=== PATIENT | female | born 1930 | race Caucasian/White ===

== ENCOUNTER → 2016-04-17 | Outpatient (REF) | payer MEDICARE ==
[~2016-04-17] MED LIST: /ESOM40CA PO; ACET65TA OR; ASPI81TA83 PO; ATEN25TA PO; CENTTAB PO; CO Q100C10 PO; D31000TA PO; FLON0.05; FLUTISP; GARL3CAP3 PO; LIPI20TA PO; LISI10TA4 PO; MIRA255PW PO; MOMETASONE FUROATE AU; NITR0.4S SL; NORV5TAB OR; OMEG100011 PO
[2016-04-17 11:53] LABS: ALBUMIN 3.5 GM/DL (3.2-5.2); ALBUMIN/GLOBULIN RATIO 1.09 (1.00-1.93); ALKALINE PHOSPHATASE 60 U/L (45-117); ALT/SGPT 18 U/L (12-78); ANION GAP 5 MEQ/L (8-16); AST/SGOT 20 U/L (15-37); BILIRUBIN,TOTAL 0.5 MG/DL (0.2-1.0); BLOOD UREA NITROGEN 21 MG/DL (7-18); CALCIUM LEVEL 8.8 MG/DL (8.8-10.2); CARBON DIOXIDE LEVEL 31 MEQ/L (21-32); CHLORIDE LEVEL 107 MEQ/L (98-107); CREATININE FOR GFR 0.81 MG/DL (0.55-1.02); GLOMERULAR FILTRATION RATE > 60.0 (>32); GLUCOSE, FASTING 90 MG/DL (83-110); POTASSIUM SERUM 4.4 MEQ/L (3.5-5.1); SODIUM LEVEL 143 MEQ/L (136-145); TOTAL PROTEIN 6.7 GM/DL (6.4-8.2)
== END ==
LOC: M SFHCPLAZ 09:00
PROVIDERS: ATTEND Internal Medicine
DX: I10 Essential (primary) hypertension (principal); K21.9 Gastro-esophageal reflux disease without esophagitis

== ENCOUNTER → 2016-10-01 | Outpatient (REF) | payer MEDICARE ==
[~2016-10-01] MED LIST changes: +AMLO5TAB2 PO; +B121000T PO; +B6 N1TAB PO; +CARV6.25 PO; +CEPH500C PO; +CLOP75TA2 PO; +GARL10004 PO; +MIRA33504 PO; +NITR4TASL SL; +OMEG500C3 PO; +OSTETAB4 PO; +SPIR25TA2 PO; +TYLE650T35 PO; +VITMTA PO
[2016-10-01 11:52] LABS: ALBUMIN 3.4 GM/DL (3.2-5.2); BILIRUBIN,TOTAL 0.7 MG/DL (0.2-1.0); CREATININE FOR GFR 1.05 MG/DL (0.55-1.02); GLOMERULAR FILTRATION RATE 52.8 (>32); POTASSIUM SERUM 4.7 MEQ/L (3.5-5.1); TOTAL PROTEIN 6.8 GM/DL (6.4-8.2)
== END ==
LOC: M SFHCLERA 09:01
PROVIDERS: ATTEND Internal Medicine
DX: I10 Essential (primary) hypertension (principal); E78.00 Pure hypercholesterolemia, unspecified

== ENCOUNTER → 2016-10-19 | Outpatient (CLI) | payer MEDICARE ==
--- NOTE | 2016-10-19 10:10 | REP ---
LEFT KNEE, FIVE VIEWS: HISTORY: Pain. There is no acute fracture or dislocation. There is narrowing of the joint spaces. Chondrocalcinosis is present. IMPRESSION: Degenerative change as described above. Signed by Kenneth Ashford MD 10/19/2016 11:01 A
== END ==
LOC: M LRY 09:37
PROVIDERS: ATTEND Nurse Practitioner Adult Health
DX: M11.262 Other chondrocalcinosis, left knee (principal)

== ENCOUNTER 2016-12-19 07:35 | Inpatient (IN) | payer MEDICARE ==
[~2016-12-19] VITALS: Ht 157.5 cm; Wt 52.4 kg
[~2016-12-19 07:35] MED LIST changes: -AMLO5TAB2 PO; -B121000T PO; -B6 N1TAB PO; -CARV6.25 PO; -CEPH500C PO; -CLOP75TA2 PO; -GARL10004 PO; -MIRA33504 PO; -NITR4TASL SL; -OMEG500C3 PO; -OSTETAB4 PO; -SPIR25TA2 PO; -TYLE650T35 PO; -VITMTA PO
[2016-12-19] MEDS ORDERED: NS 1,000 ML IV ONE ×2 (07:45→09:45)
[2016-12-19] MEDS ORDERED: fentaNYL 100 MCG/2 ML INJECTION (J3010) IV ONE (08:00)
[2016-12-19 08:11] LABS: BASO % 0.4 % (0.0-1.0); EOS # 0.1 10^3/uL (0.0-0.50); EOS % 1.5 % (0.0-3.0); IMMATURE GRANULOCYTE % 0.2 % (0-0); LYMPH # 2.4 10^3/uL (1.5-4.5); MEAN CORPUSCULAR HEMOGLOBIN 29.1 pg (27.0-33.0); MEAN CORPUSCULAR HGB CONC 32.1 g/dl (32.0-36.5); MEAN CORPUSCULAR VOLUME 90.6 fl (80.0-96.0); MONO # 0.7 10^3/uL (0.0-0.8); MONO % 7.2 % (0.0-5.0); NEUTROPHILS # 5.9 10^3/uL (1.8-7.7); NEUTROPHILS % 64.7 % (36.0-66.0); PLATELET COUNT, AUTOMATED 307 10^3/uL (150-450); RED CELL DISTRIBUTION WIDTH 12.8 % (11.5-14.5); WHITE BLOOD COUNT 9.2 10^3/uL (4.0-10.0)
--- NOTE | 2016-12-19 08:23 | REP ---
Portable chest, 08:02 a.m., single AP view, patient sitting: Comparisons are 01/20/2016 and 04/02/2012. The lung rucker are clear. Cardiac size is normal. The brady, mediastinum, and bony thorax are unchanged. There is an [place] anti reflux ring encircling the distal esophagus, unchanged. Impression: There are no acute cardiopulmonary findings. Signed by Fabián Bernal MD 12/19/2016 08:14 A
[2016-12-19 08:42] LABS: INR 1.07
[2016-12-19 08:47] LABS: ALBUMIN 3.1 GM/DL (3.2-5.2); ALBUMIN/GLOBULIN RATIO 1.15 (1.00-1.93); ALKALINE PHOSPHATASE 61 U/L (45-117); ALT/SGPT 17 U/L (12-78); AMYLASE 63 U/L (25-115); ANION GAP 10 MEQ/L (8-16); AST/SGOT 16 U/L (15-37); BILIRUBIN,DIRECT 0.2 MG/DL (0.0-0.2); BILIRUBIN,TOTAL 0.6 MG/DL (0.2-1.0); BLOOD UREA NITROGEN 21 MG/DL (7-18); CALCIUM LEVEL 8.7 MG/DL (8.8-10.2); CARBON DIOXIDE LEVEL 24 MEQ/L (21-32); CHLORIDE LEVEL 108 MEQ/L (98-107); CREATININE FOR GFR 0.83 MG/DL (0.55-1.02); GLOMERULAR FILTRATION RATE > 60.0 (>32); GLUCOSE, FASTING 133 MG/DL (83-110); POTASSIUM SERUM 4.2 MEQ/L (3.5-5.1); SODIUM LEVEL 142 MEQ/L (136-145); TOTAL PROTEIN 5.8 GM/DL (6.4-8.2)
[2016-12-19] MEDS ORDERED: ISOVUE-370 76% 100ML VIAL (Q9967) As Ordered ONE (08:57)
[2016-12-19] MEDS ORDERED: B6 N1TAB PO (09:11)
[2016-12-19] MEDS ORDERED: FLUTISP (09:11)
[2016-12-19] MEDS ORDERED: B121000T PO (09:11)
[2016-12-19] MEDS ORDERED: OMEG500C3 PO (09:11)
[2016-12-19] MEDS ORDERED: TYLE650T35 PO (09:11)
[2016-12-19] MEDS ORDERED: NITR4TASL SL (09:11)
[2016-12-19] MEDS ORDERED: MIRA33504 PO (09:11)
[2016-12-19] MEDS ORDERED: GARL10004 PO (09:11)
[2016-12-19] MEDS ORDERED: VITMTA PO (09:11)
[2016-12-19] MEDS ORDERED: OSTETAB4 PO (09:14)
--- NOTE | 2016-12-19 09:45 | REP ---
CT CHEST WITH IV CONTRAST: TECHNIQUE: Axial contrast enhanced images from the thoracic inlet to the upper abdomen using 100 mL Isovue 370 intravenous contrast material with multiplanar reformations. The lungs are free of infiltrate or other suspicious parenchymal opacities. There is no mediastinal, hilar, or chest wall lymphadenopathy. The patient appears to have had a left mastectomy. There are moderate atherosclerotic calcifications of the thoracic of the thoracic aorta without aneurysm or dissection. There is no mediastinal, hilar, or chest wall lymphadenopathy. There is no pleural or pericardial effusion. There is an antireflux device encircling the lower esophagus. There are degenerative changes of the spine. IMPRESSION: No acute findings. Signed by Fabián Tillman MD 12/19/2016 02:34 P
--- NOTE | 2016-12-19 10:04 | REP ---
CT ABDOMEN AND PELVIS WITH IV CONTRAST: TECHNIQUE: Axial contrast enhanced images from the lung bases to the pubic symphysis using 100 mL Isovue 370 intravenous contrast material with multiplanar reformations. Liver again demonstrates a cyst in the right lobe with lobulated margins between 3 and 4 cm in diameter, unchanged. Patient has had a prior cholecystectomy. There is dilatation of the central intrahepatic bile ducts as well as of the common bile duct, unchanged. Maximum diameter of the common bile duct is 1.8 cm. The spleen is unremarkable in appearance. There adrenal glands are diffusely thickened and unchanged. Pancreas demonstrates no mass. Kidneys demonstrate no mass or hydronephrosis. There are moderate atherosclerotic calcifications of the abdominal aorta without aneurysm. Heavy calcifications are seen at the origin of the mesenteric arteries suggesting mesenteric artery stenosis. There is questionable thickening of the hepatic flexure of the colon with some streaky surrounding inflammatory change. Findings may indicate ischemic colitis in this region. No other area of bowel wall thickening is seen. There is colonic diverticulosis. There is no adenopathy, free air, or free fluid. There is no pelvic mass. The urinary bladder appears unremarkable. There are degenerative changes of the spine. IMPRESSION: There appears to be significant narrowing and stenosis of the mesenteric arteries proximally. In addition there is questionable thickening of the splenic flexure of the colon with some streaky densities in the surrounding fat. Findings may indicate mesenteric artery stenosis with associated ischemic colitis. No other acute findings are seen. Signed by Fabián Tillman MD 12/19/2016 02:35 P
[2016-12-19] MEDS ORDERED: CARV6.25 PO (10:56)
[2016-12-19] MEDS ORDERED: SPIR25TA2 PO (10:56)
[2016-12-19] MEDS ORDERED: AMLO5TAB2 PO (10:56)
[2016-12-19] MEDS ORDERED: CLOPIDOGREL 300 MG TAB (PLAVIX) PO STA ×2 (12:39→20:04)
[2016-12-19] MEDS ORDERED: HYDROmorphone HCL 1 MG/ML SYRINGE (J1170) IV PRN ×2 (12:45)
[2016-12-19] MEDS ORDERED: ONDANSETRON 4MG/2ML VIAL (J2405) IV PRN (12:45)
[2016-12-19 14:47] VITALS: BP 173/72
--- NOTE | 2016-12-19 15:28 | HPE ---
DATE OF ADMISSION: 12/19/2016 PRIMARY CARE PROVIDER: Dr. Laith Myers. GENERAL SURGEON: Dr. Fabián Patel. FUR SORTER: Dr. Noé Carson. VASCULAR SURGEON: Dr. Rosas Christian. CHIEF COMPLAINT: Abdominal pain. HISTORY OF PRESENT ILLNESS: This is an 86-year-old female patient with underlying medical history of hypertensive heart disease, hypertension, dyslipidemia, hiatal hernia, valvular heart disease, coronary artery disease, history of gastrointestinal bleed in the remote past with multiple abdominal surgeries which include appendectomy, inguinal hernia repair, hysterectomy, cholecystectomy, hiatal hernia repair, rectal and vaginal repair. The patient was brought to [facility] with acute onset around 5:00 to 6:00 -o'clock in the morning of acute onset of sharp, cramping abdominal pain that comes in waves, diffusely tender with dry heaving. Last bowel movement was yesterday, and was small. No oral intake this morning. Denies any chest pain, pressure or discomfort, shortness of breath. The patient was tachycardia in significant pain. Symptoms relieved with IV fluids and also pain medication in the emergency room. Currently, still having diffuse abdominal pain worse with palpation but much better. CT scan was done showing ischemic colitis. The patient denies any fevers or chills. No sick contact, diarrhea. ALLERGIES: CODEINE AND LATEX. PAST MEDICAL HISTORY: Hypertension. Hypertensive heart disease. Valvular heart disease. Hiatal hernia. Coronary artery disease PAST SURGICAL HISTORY: Appendectomy. 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 Inguinal hernia repair 1960s. Hysterectomy 1961. Cholecystectomy . Hiatal hernia repair. Vein ligation. Left mastectomy with cancer. Right index finger surgery with a lump. Colonoscopy. Esophagogastroduodenoscopy (EGD). Cataract surgery bilateral. Right-sided breast lumpectomy. Vaginal wall repair and rectal repair. Right shoulder surgery. FAMILY HISTORY: Father with prostate cancer, hypertension and heart disease, diabetes. Mother had hypertension, coronary artery disease and diabetes. SOCIAL HISTORY: The patient does not smoke or drink alcoholic beverages or use elicit drugs. Lives at home but with daughter next door. REVIEW OF SYSTEMS: Report of abdominal pain, dry heaving, nausea. All other review of systems negative. HOME MEDICATIONS: - Acetaminophen 650 mg by mouth every 8 hours as needed - Norvasc 5 mg by mouth daily - Lipitor 20 mg by mouth nightly - Coreg 6.25 mg by mouth twice a day - vitamin D 1000 units by mouth daily - Coenzyme Q10 100 mg by mouth daily - vitamin B12 2000 micrograms by mouth daily - Nexium 40 mg by mouth every 2 days - Flonase nasal spray daily - Garlic 1000 mg by mouth daily - lisinopril 10 mg by mouth twice a day - multivitamin one tablet by mouth daily - nitroglycerine 0.4 mg sublingual as needed - [place] III fatty acid by mouth daily - MiraLAX 17 mg by mouth daily - vitamin B6 100 mg by mouth daily - spironolactone 12.5 mg by mouth daily PHYSICAL EXAMINATION: VITAL SIGNS: Temperature 97.6, pulse 65, respiration 19, blood pressure 144/66, pulse ox 96% on room air. GENERAL: Patient alert, comfortable in no acute distress. HEENT: Normocephalic, atraumatic. CARDIAC: Regular rate and rhythm 2/6 systolic murmur. ABDOMEN: Diffusely tender, mostly right-sided lower quadrant with rebound and guarding. Soft. EXTREMITIES: No clubbing, cyanosis or edema. EKG: Sinus bradycardia at 54. No ST segment changes. CT scan shows ischemic colitis with mesenteric artery stenosis. LABORATORY: WBC 9.2, hemoglobin and hematocrit 10.3/31.8, platelets 307. Sodium 142, potassium 4.2, chloride 108, bicarbonate 24, BUN 21, creatinine 0.8, lactic acid 2.6, 0.8 and 1.1. Cardiac enzyme negative times one. ASSESSMENT/PLAN: This is an 86-year-old female patient with underlying medical history of hypertensive heart disease, coronary artery disease, valvular heart disease, hiatal hernia, GI bleed, breast cancer. Patient with multiple abdominal surgery which includes hysterectomy, cholecystectomy, hiatal hernia repair, appendectomy , inguinal hernia repair presented with abdominal pain and dry heaving secondary to ischemic colitis with stenosis of mesenteric artery. PROBLEMS: 1. Ischemic colitis with mesenteric artery stenosis: Consulted general surgery , Dr. Patel and vascular surgeon, Dr. Christian. Discussed with Dr. Patel, will nothing by mouth. Continue IV fluids. Serial abdominal exam. Trend lactic acid. Will place the patient on empiric antibiotics until patient stabilizes. Consulted vascular surgery. The patient is scheduled for angiogram tomorrow. Will continue the patient on 75 mg of Plavix daily, given the patient is at significant risk. The patient does have history of GI bleed, but given the patient has acute ischemic colitis, the risk of bleeding outweighs the benefit. Will place the patient on antiplatelet agent for now. Pain medication as ordered. 2. Hypertension: Continue Norvasc, Coreg and lisinopril. Holding spironolactone. Will monitor blood pressure. 3. Dyslipidemia: Continue statin. 4. Hypertensive heart disease: Continue medication as mentioned above. 5. Valvular heart disease: Outpatient followup. 6. History of GI bleed: Monitor hemoglobin and hematocrit. 7. Deep venous thrombosis prophylaxis: Heparin subcu. DISPOSITION PLAN: Pending general surgery and vascular surgery followup. Clinical improvement. Patient with multiple comorbidities, acutely ill with ischemic colitis with mesenteric artery ischemia. Prognosis guarded. MTDD
[2016-12-19] MEDS: MEROPENEM INJ 1 GM in D5W MINI-BAG PLUS 100 ML IV SCH (15:29)
[2016-12-19] MEDS: HEPARIN SOD (PORCINE) 5000 UNITS/ML VIAL SC SCH ×2 (15:29→21:16)
[2016-12-19] MEDS: LISINOPRIL 10 MG TAB PO SCH ×2 (16:03→20:33)
[2016-12-19] MEDS: CARVedilol 6.25 MG TAB PO SCH ×2 (16:03→20:32)
[2016-12-19] MEDS: MULTIVITAMINS/MINERALS THERAP 1 TAB PO SCH (16:03)
[2016-12-19] MEDS: amLODIPine 5 MG TAB PO SCH (16:04)
[2016-12-19] MEDS: NS 1,000 ML IV SCH ×2 (19:26→20:35)
[2016-12-19 20:00] VITALS: BP 131/62; O2SAT 96
[2016-12-19] MEDS: PANTOPRAZOLE 40MG INJ (PROTONIX) (C9113) IV SCH (20:32)
[2016-12-19] MEDS: SENOKOT S TAB PO SCH (20:33)
[2016-12-19] MEDS: ATORVASTATIN 20 MG TAB PO SCH (20:33)
[2016-12-19] MEDS: FLUTICASONE PROP 0.05% NASAL SPRAY 16 GM (FLONASE) SCH (20:34)
[2016-12-19 23:59] VITALS: BP 114/56
[2016-12-20] VITALS (10 sets, daily range): BP systolic 130–165; BP diastolic 57–86; O2SAT 95
[2016-12-20] MEDS: MEROPENEM INJ 1 GM in D5W MINI-BAG PLUS 100 ML IV SCH (02:27)
[2016-12-20] MEDS: HEPARIN SOD (PORCINE) 5000 UNITS/ML VIAL SC SCH ×3 (04:20→20:55)
[2016-12-20] MEDS: NS 1,000 ML IV SCH ×2 (04:20→16:06)
[2016-12-20 05:36] LABS: MEAN CORPUSCULAR HEMOGLOBIN 28.8 pg (27.0-33.0); MEAN CORPUSCULAR HGB CONC 31.7 g/dl (32.0-36.5); MEAN CORPUSCULAR VOLUME 90.9 fl (80.0-96.0); PLATELET COUNT, AUTOMATED 318 10^3/uL (150-450); RED CELL DISTRIBUTION WIDTH 12.9 % (11.5-14.5); WHITE BLOOD COUNT 6.3 10^3/uL (4.0-10.0)
[2016-12-20 05:45] LABS: INR 1.17
[2016-12-20 06:00] LABS: ALBUMIN 2.6 GM/DL (3.2-5.2); ALKALINE PHOSPHATASE 56 U/L (45-117); ALT/SGPT 14 U/L (12-78); ANION GAP 8 MEQ/L (8-16); AST/SGOT 16 U/L (15-37); BILIRUBIN,TOTAL 0.5 MG/DL (0.2-1.0); BLOOD UREA NITROGEN 11 MG/DL (7-18); CALCIUM LEVEL 8.1 MG/DL (8.8-10.2); CARBON DIOXIDE LEVEL 25 MEQ/L (21-32); CHLORIDE LEVEL 109 MEQ/L (98-107); CREATININE FOR GFR 0.57 MG/DL (0.55-1.02); GLOMERULAR FILTRATION RATE > 60.0 (>32); GLUCOSE, FASTING 85 MG/DL (83-110); POTASSIUM SERUM 3.3 MEQ/L (3.5-5.1); SODIUM LEVEL 142 MEQ/L (136-145); TOTAL PROTEIN 5.5 GM/DL (6.4-8.2)
[2016-12-20] MEDS ORDERED: POTASSIUM CHLORIDE 10 MEQ SR TABLET PO ONE ×2 (07:15→13:00)
[2016-12-20] MEDS ORDERED: MIDAZOLAM INJ 2 MG/2 ML VIAL (J2250) As Ordered ONE (07:27)
[2016-12-20] MEDS ORDERED: HEPARIN 1,000 UNITS/ML 10ML VIAL (FOR RADIOLOGY& DIALYSIS ONLY) As Ordered ONE (07:27)
[2016-12-20] MEDS ORDERED: LIDOCAINE 2% MDV 20 ML VIAL As Ordered ONE (07:27)
[2016-12-20] MEDS ORDERED: ISOVUE-300 61% 50ML VIAL (Q9967) As Ordered ONE (07:27)
[2016-12-20] MEDS ORDERED: fentaNYL 100 MCG/2 ML INJECTION (J3010) As Ordered ONE (07:27)
[2016-12-20] MEDS ORDERED: PROTAMINE SULF INJ 50 MG/5 ML VIAL (J2720) As Ordered ONE (08:48)
[2016-12-20] MEDS: VITAMIN D 1,000 INTERNATIONAL UNITS TABLET PO SCH (09:54)
[2016-12-20] MEDS: CLOPIDOGREL 75 MG TAB PO SCH (09:54)
[2016-12-20] MEDS: amLODIPine 5 MG TAB PO SCH (09:54)
[2016-12-20] MEDS: MULTIVITAMINS/MINERALS THERAP 1 TAB PO SCH (09:54)
[2016-12-20] MEDS: LISINOPRIL 10 MG TAB PO SCH ×2 (09:54→20:55)
[2016-12-20] MEDS: SENOKOT S TAB PO SCH ×2 (09:55→20:54)
[2016-12-20] MEDS: CARVedilol 6.25 MG TAB PO SCH ×2 (09:55→20:54)
[2016-12-20] MEDS: FLUTICASONE PROP 0.05% NASAL SPRAY 16 GM (FLONASE) SCH (09:55)
--- NOTE | 2016-12-20 16:35 | IPN ---
DATE: 12/20/2016 Patient seen and examined. No acute events overnight. Status post angiogram by Dr. Christian. Denies any chest pain, pressure, or discomfort. Reported abdominal pain to be much improved. Denies any fevers or chills. VITAL SIGNS: Temperature 99.1, pulse 64, respirations 18, blood pressure 150/64, pulse oximetry 98% on room air. LABORATORY DATA: WBC 6.3, hemoglobin and hematocrit 9.2/29, platelets 318. Chemistry: Sodium 142, potassium 3.6, chloride 109, bicarbonate 25, BUN 11, creatinine 0.57. PHYSICAL EXAMINATION: GENERAL: Patient alert and oriented times three in no acute distress. HEENT: Normocephalic, atraumatic. PULMONARY: Bilaterally clear to auscultation. CARDIAC: Regular rate and rhythm. Normal S1, S2. A 2/6 systolic murmur. ABDOMEN: Soft, nontender. Positive bowel sounds, hyperactive. EXTREMITIES: No clubbing, cyanosis, or edema. ASSESSMENT AND PLAN: This is an 86-year-old female patient with underlying medical history of hypertensive heart disease, coronary artery disease, valvular heart disease, hiatal hernia, gastrointestinal (GI) bleed, breast cancer, and with multiple abdominal surgeries, which include hysterectomy, cholecystectomy, hiatal hernia, appendectomy, inguinal hernia repair, presented with abdominal pain and dry heaving secondary to ischemic colitis and stenosis of mesenteric artery. 1. Ischemic colitis with mesenteric artery stenosis. Consulted general surgery, Dr. Patel, and vascular surgery, Dr. Christian. Status post angiogram. Diet has been advanced. Intravenous (IV) fluids, serial abdominal exams. Lactic acidosis has resolved. Initially started on meropenem. Currently discontinued. Patient on Plavix. Risks and benefits of Plavix have been discussed with the family. Will discuss with Dr. Christian for further long-term antiplatelet agent recommendation. Patient medication as prescribed. 2. Hypertension. Continue Norvac, Coreg, lisinopril. Will restart spironolactone tomorrow. 3. Dyslipidemia. Continue statin. 4. Hypertensive heart disease. Continue medication management above. 5. Valvular heart disease, outpatient followup. 6. History of gastrointestinal (GI) bleed. Monitor hemoglobin and hematocrit. 7. Deep vein thrombosis (DVT) prophylaxis. Heparin subcutaneous. DISPOSITION PLANNING: Pending final general surgery and vascular surgery recommendations, physical therapy. Patient with multiple comorbidities. Guarded prognosis.
[2016-12-20] MEDS: PANTOPRAZOLE 40MG INJ (PROTONIX) (C9113) IV SCH (17:39)
[2016-12-20] MEDS: ATORVASTATIN 20 MG TAB PO SCH (20:54)
[2016-12-21] VITALS: BP 148/67
[2016-12-21 04:00] VITALS: BP 138/63
--- NOTE | 2016-12-21 04:32 | ECGEPIP ---
Stationary ECG Study [facility] - ED Test Date: 2016-12-19 Pat Name: LAKESHA KILLIAN Department: Room: - Gender: F Grader Marker: JJagdeep : 1930 Requested By: Morro Vargas Order Number: [id number] Reading MD: Jatin Farah Measurements Intervals [place] Rate: 54 P: 84 ID: [id number] QRS: 4 QRSD: 87 T: 59 QT: 466 QTc: 442 Interpretive Statements SINUS BRADYCARDIA LOW QRS VOLTAGE IN EXTREMITY LEADS NONSPECIFIC T-WAVE ABNORMALITY BASELINE ARTIFACT AFFECTS INTERPRETATION SIMILAR TO 02/21/16 Electronically Signed On 12-21-2016 4:32:13 EDT by Jatin Farah
[2016-12-21] MEDS: HEPARIN SOD (PORCINE) 5000 UNITS/ML VIAL SC SCH (05:01)
[2016-12-21] MEDS: NS 1,000 ML IV SCH (05:01)
[2016-12-21 05:21] LABS: MEAN CORPUSCULAR HEMOGLOBIN 29.5 pg (27.0-33.0); MEAN CORPUSCULAR HGB CONC 32.4 g/dl (32.0-36.5); MEAN CORPUSCULAR VOLUME 91.2 fl (80.0-96.0); PLATELET COUNT, AUTOMATED 306 10^3/uL (150-450); WHITE BLOOD COUNT 6.8 10^3/uL (4.0-10.0)
[2016-12-21 05:34] LABS: INR 1.1
[2016-12-21 05:40] LABS: ALBUMIN 2.6 GM/DL (3.2-5.2); ALBUMIN/GLOBULIN RATIO 0.96 (1.00-1.93); ALKALINE PHOSPHATASE 50 U/L (45-117); ALT/SGPT 16 U/L (12-78); ANION GAP 6 MEQ/L (8-16); AST/SGOT 16 U/L (7-37); BILIRUBIN,TOTAL 0.4 MG/DL (0.2-1.0); BLOOD UREA NITROGEN 9 MG/DL (7-18); CALCIUM LEVEL 8.2 MG/DL (8.8-10.2); CARBON DIOXIDE LEVEL 25 MEQ/L (21-32); CHLORIDE LEVEL 112 MEQ/L (98-107); CREATININE FOR GFR 0.75 MG/DL (0.55-1.02); GLOMERULAR FILTRATION RATE > 60.0 (>32); GLUCOSE, FASTING 96 MG/DL (83-110); POTASSIUM SERUM 4.1 MEQ/L (3.5-5.1); SODIUM LEVEL 143 MEQ/L (136-145); TOTAL PROTEIN 5.3 GM/DL (6.4-8.2)
[2016-12-21 08:00] VITALS: BP 156/70
[2016-12-21] MEDS ORDERED: CEPHALEXIN 500 MG CAP PO SCH (09:00)
[2016-12-21] MEDS ORDERED: SPIRONOLACTONE 12.5MG PER 1/2 TABLET PO SCH (09:00)
[2016-12-21] MEDS: SENOKOT S TAB PO SCH (09:00)
[2016-12-21] MEDS: VITAMIN D 1,000 INTERNATIONAL UNITS TABLET PO SCH (09:26)
[2016-12-21] MEDS: CLOPIDOGREL 75 MG TAB PO SCH (09:27)
[2016-12-21] MEDS: LISINOPRIL 10 MG TAB PO SCH (09:27)
[2016-12-21] MEDS: amLODIPine 5 MG TAB PO SCH (09:27)
[2016-12-21] MEDS: CARVedilol 6.25 MG TAB PO SCH (09:27)
[2016-12-21] MEDS: MULTIVITAMINS/MINERALS THERAP 1 TAB PO SCH (09:27)
[2016-12-21] MEDS: FLUTICASONE PROP 0.05% NASAL SPRAY 16 GM (FLONASE) SCH (09:28)
--- NOTE | 2016-12-21 10:54 | CR ---
DATE OF CONSULTATION: 12/19/2016 CHIEF COMPLAINT: Abdominal pain. HISTORY OF PRESENT ILLNESS: The patient is an 86-year-old female who presented to the emergency room (ER) after being found at home having some nausea, dry heaves, and diffuse abdominal pain. Emergency medical services (EMS) claims that when they arrived, she was in atrial fibrillation (AFib). However, there are no rhythm strips to prove that, and she has only been having some premature ventricular contractions (PVCs) since arrival in the emergency room. No known prior history of any heart arrhythmias. Currently, she is complaining of some mild abdominal pains but denies any current nausea, vomiting, or fevers. She claims that the ride over in the ambulance did not aggravate her abdominal pain any. No changes in her bowel movements. No problems with blood in her stool. No recent trauma or surgery to the abdomen. No other changes in activity recently. ALLERGIES: CODEINE and LATEX. HOME MEDICATIONS: Please see medical record. PAST MEDICAL HISTORY: Hypertension, hypertensive heart disease, valvular heart disease, hiatal hernia, coronary artery disease. PAST SURGICAL HISTORY: Appendectomy, right knee surgery, inguinal hernia repair, hysterectomy, cholecystectomy, hiatal hernia repair, vein ligation, left mastectomy due to breast cancer, cataract surgery, right breast lumpectomy, vaginal wall repair, and rectocele repair, right shoulder surgery. FAMILY HISTORY: Noncontributory. SOCIAL HISTORY: Denies any current drug, alcohol, or tobacco abuse. REVIEW OF SYSTEMS: Pertinent positives and negatives in the history of present illness (HPI). PHYSICAL EXAMINATION: General: The patient is alert and oriented times three. Vital signs: Temperature 97.4, pulse 64, respirations 20, blood pressure 144/65, pulse oximetry 100% on room air. HEENT: Pupils equal, round, and reactive to light and accommodation. Heart: S1, S2, regular rate and rhythm. Lungs: Clear to auscultation bilaterally. Abdomen: Soft, tender to palpation left upper quadrant, no rebounding or guarding, no rigidity. Extremities: No clubbing, cyanosis, or edema. There is a strong dorsalis pedis pulse palpable in the left foot with no palpable dorsalis pedis in the right. LABORATORIES: White count 9.2, hemoglobin 10.2, potassium 4.2, lactic acid 2.6, calcium 8.7. Repeat lactic acid at 10 a.m. was down to 0.8. IMAGING: CT abdomen and pelvis showed significant narrowing and stenosis of the mesenteric arteries proximally, questionable thickening of splenic flexure of the colon with some streaky densities and surrounding fat. No other acute findings identified. ASSESSMENT AND PLAN: The patient is an 86-year-old female with sudden onset of abdominal pain and nausea, presents to the ER. CT confirms that this is likely ischemic colitis. She had lactic acidosis upon admission. However, that is improving with fluid hydration. I have discussed her CT with Dr. Christian, who has looked at her films and does agree that her vessels are narrowed, and he is planning to take her tomorrow morning for an angiogram to see if there is anything that he can stent. Currently, her symptoms are likely due to a low flow state as opposed to an embolic event. There are no signs to show that she has had any irregular heart rhythms to cause anything. At this time, she will be kept nothing by mouth, on intravenous (IV) fluids, place her empirically on antibiotics, and she also will be placed on some blood thinners temporarily.
[2016-12-21] MEDS ORDERED: CEPH500C PO (12:33)
[2016-12-21] MEDS ORDERED: CLOP75TA2 PO (12:33)
--- NOTE | 2016-12-23 19:36 | DSES ---
DATE OF ADMISSION: 12/19/2016 DATE OF DISCHARGE: 12/21/2016 PRIMARY CARE PROVIDER: Dr. Laith Myers. GENERAL SURGEON: Dr. Patel. VASCULAR SURGEON: Dr. Christian. FINAL DIAGNOSES: Ischemic colitis with mesenteric artery stenosis. Hypertension. Dyslipidemia. Hypertensive heart disease. Vascular heart disease. History of GI bleed. HISTORY OF PRESENT ILLNESS: This is an 86-year-old female patient with underlying medical history of hypertensive heart disease, hypertension, dyslipidemia, hiatal hernia, valvular heart disease, coronary artery disease, history of gastrointestinal bleed in the remote past with multiple abdominal surgeries; which include appendectomy, inguinal hernia repair, hysterectomy, cholecystectomy, hiatal hernia repair, rectal and vaginal repair. The patient was brought to [facility] with acute onset around 5:00 to 6:00 o'clock in the morning of abdominal pain, sharp cramping pain, comes in waves with retching. No vomiting and dry heaving. Last bowel movement was the day before admission, it was small with no oral intake in the morning. Denies any chest pain, pressure or discomfort, fevers, chills or shortness of breath with tachycardia in route but in the emergency room patient's pain improved with IV fluids and also pain medication. CT scan in the emergency department (ED) showed ischemic colitis with mesenteric artery narrowing. HOSPITAL COURSE: Patient was admitted to the hospital, vascular surgery was consulted. Patient was given Plavix. General surgery was also consulted. Patient was taken to angiogram by Dr. Christian showing only 30% to 40% narrowing. As per surgeons and vascular surgeon, patient most likely had some dehydration resulting in poor perfusion in the watershed area. IV fluids has been given to the patient. Diet has been advanced. Patient currently reported back to baseline, tolerating oral, able to ambulate. Physical therapy evaluation was done. Patient currently comfortable in no acute distress ready for discharge with further care as outpatient. Case discussed with Dr. Ozuna who is covering for Dr. Patel and also Dr. Christian. Vital signs: Temperature 98.3, pulse 68, respirations 18, blood pressure 156/70, pulse ox 97% on room air. GENERAL: Patient awake, alert, and oriented times three in no acute distress. HEENT: Normocephalic, atraumatic. PULMONARY: Bilaterally clear to auscultation. CARDIAC: Regular rate and rhythm. 2/6 systolic murmur. ABDOMEN: Soft, non-tender, positive bowel sounds, non-tender. EXTREMITIES: No clubbing, cyanosis or edema. LABORATORY DATA: WBC 6.8, H H 9.1/28.1, platelets 306, sodium 143, potassium 4.1, chloride 112, bicarbonate 25, BUN 9, creatinine 0.75. DISCHARGE MEDICATION: - Keflex for urinary tract infection 500 mg by mouth twice a day - Plavix 75 mg by mouth daily PATIENT HOME MEDICATION: - acetaminophen 650 every 8 hours as needed - Norvasc 5 mg by mouth daily - Lipitor 20 mg by mouth at bedtime - Coreg 6.25 mg by mouth twice a day - Vitamin D 1000 units by mouth daily - Coenzyme Q10 100 mg by mouth daily - Vitamin B12 2000 mcg by mouth daily - Nexium 15 mg by mouth every 2 days - Flonase nasal spray daily - garlic 100 mg by mouth daily - Lisinopril 10 mg by mouth twice a day - multivitamin 1 tablet by mouth daily - sublingual nitro 0.4 as needed - [place] 3 fatty acid by mouth daily - Alise LAX as needed - Vitamin B6 100 mg by mouth daily - spironolactone 12.5 mg by mouth daily DISCHARGE INSTRUCTIONS: Patient is instructed to follow up with primary care provider in 7 days. Return to the hospital if symptoms worsen. Follow up with vascular surgery in 7- 10 days. Follow up with general surgery in 2 weeks. Oral hydration. ADDENDUM: 12/21/2016 Risk and benefit of Plavix has been discussed. As of right now, it is believed that the benefit of Plavix outweighs the risk of bleeding given patient's gastrointestinal (GI) bleed has been in the remote past. Would recommend following hemoglobin and hematocrit as outpatient. Time spent arranging and coordinating discharge: 40 minutes.
--- NOTE | 2017-01-02 13:31 | REPIR ---
DATE OF PROCEDURE: 12/20/2016 PREPROCEDURE DIAGNOSIS: Mesenteric ischemia. POSTPROCEDURE DIAGNOSIS: Mesenteric ischemia. PROCEDURE: Aortogram, selective celiac artery catheter placement with angiogram, selective superior mesenteric artery catheter placement with angiogram, pressure measurement in the aorta, celiac artery and superior mesenteric artery. Mynx closure of the right common femoral arteriotomy. SURGEON: Dr. Noé Christian. DIRECTOR OF GRADUATE MEDICAL EDUCATION: ANESTHESIA: Local with sedation with 0.5 mg of Versed, (cut off) mcg of Fentanyl and 10 mL of 2% lidocaine. ESTIMATED BLOOD LOSS: FLUORO TIME: 2.222 minutes. CONTRAST: 9 mL. SEDATION TIME: From 8:10 a.m. to 9:05 a.m. for a total of 55 minutes. COMPLICATIONS: None. DRAINS: None. SPECIMENS: None. IMPLANTS: Right femoral Mynx closure device. INDICATION: Patient is an 86-year-old female who presented with ischemic colitis and underwent a CT scan which showed severe calcification of the superior mesenteric and celiac artery origins. Patient was unable to undergo a CT angiogram due to contrast limitations and will now undergo angiography with possible angioplasty and stent for mesenteric ischemia and colitis. Risks, benefits and alternative treatment options were discussed with the patient. PROCEDURE: The patient was taken to the angiography suite and placed supine on the angiography room table and then prepped and draped in a standard surgical fashion. A time out complete confirming the correct procedure, patient and laterality. The right common femoral artery was then cannulated with a micropuncture needle after anesthetizing the overlying skin with 1% lidocaine. The micropuncture wire was advanced through the micropuncture needle which was upsized to a micropuncture sheath. A Bentson wire was advanced through the micropuncture sheath which was upsized to a #5-Malian sheath. An Omniflush catheter was placed in the aorta and an aortogram was performed. A Soft Omni catheter was then used to selectively cannulate the celiac artery and an angiogram was performed confirming no stenosis. Pressure measurements were then taken in the celiac and aorta to confirm no significant stenosis and the pressure in the aorta was 162/41 with a mean of 90, at the same time the celiac artery showed 151/43 with a mean of 83 showing no significant gradient. The superior mesenteric artery was then selectively cannulated and an angiogram performed confirming no stenosis and again pressure measurements were taken with the pressure in the aorta being 162/41 with a mean of 90 while the pressure in the superior mesenteric artery was 157/77 with a mean of 98, again confirming no significant stenosis. Catheters and wires were removed and the sheath was removed and a #5-Malian Mynx closure device placed in the right common femoral arteriotomy for closure with an additional 10 minutes of adjunctive pressure applied for hemostasis. Dressings were then applied. Patient tolerated the procedure well. All instrument, sponge and needle counts were correct at the end of the case. There were no complications. Dr. Christian was present for and directed the entire case. Patient was transferred to the holding area and subsequently to the floor in stable condition. RADIOLOGIC SUPERVISION INTERPRETATION: The aortogram showed the celiac and superior mesenteric artery origins to be severely calcified but did not appear to be any significant stenosis though visualization was difficult due to the calcification. The celiac artery was then selectively cannulated and angiogram performed showing no significant stenosis and this was confirmed by doing pressure measurements within the celiac artery and the aorta. The celiac artery pressure measurements were 151/43 with a mean of 83. The catheter was removed from the celiac artery and pressures reported directly in the aorta which were 150/67 with mean of 85. This showed no significant stenosis or pressure gradient in the celiac artery origins. The superior mesenteric artery was then selectively cannulated and angiogram performed showing no stenosis and again pressure measurements were taken showing the pressure in the superior mesenteric artery to be 157/77 with a mean of 98. Catheter was removed and placed in the aorta and the reporting was 162/41 with a mean of 90 showing again no significant stenosis throughout the origin of the superior mesenteric artery. It was noted that the distal superior mesenteric artery showed small vessel disease, otherwise the superior mesenteric artery was widely patent. A Mynx closure device was used to close the arteriotomy and the right common femoral artery.
== END 2016-12-21 13:20 | disposition home or self-care (01) | DRG 394 ==
LOC: M ED 07:35 → M ED INP 12:45 → M PCU 14:47
PROVIDERS: ADMIT Hospitalist; ATTEND Hospitalist
PROC: B410YZZ Fluoroscopy of Abdominal Aorta using Other Contrast (ICD-10-PCS; principal; 2016-12-20)
PROC: B41BYZZ Fluoroscopy of Other Intra-Abdominal Arteries using Other Contrast (ICD-10-PCS; 2016-12-20)
PROC: B414YZZ Fluoroscopy of Superior Mesenteric Artery using Other Contrast (ICD-10-PCS; 2016-12-20)
DX: K55.1 Chronic vascular disorders of intestine (principal); E87.2 Acidosis; E78.5 Hyperlipidemia, unspecified; I11.9 Hypertensive heart disease without heart failure; Z79.899 Other long term (current) drug therapy

== ENCOUNTER → 2017-01-02 | Outpatient (REF) | payer MEDICARE ==
[~2017-01-02] MED LIST changes: +AMLO5TAB2 PO; +B121000T PO; +B6 N1TAB PO; +CARV6.25 PO; +CEPH500C PO; +CLOP75TA2 PO; +GARL10004 PO; +LISI-538 PO; +LUTECAP3 PO; +META48.54 PO; +MIRA33504 PO; +NITR4TASL SL; +OMEG500C3 PO; +OSTETAB4 PO; +RANI150T PO; +SPIR25TA2 PO; +TYLE650T35 PO; +VITMTA PO
[2017-01-02 17:19] LABS: MEAN CORPUSCULAR HEMOGLOBIN 29.6 pg (27.0-33.0); MEAN CORPUSCULAR HGB CONC 31.9 g/dl (32.0-36.5); MEAN CORPUSCULAR VOLUME 92.7 fl (80.0-96.0); PLATELET COUNT, AUTOMATED 348 10^3/uL (150-450); RED CELL DISTRIBUTION WIDTH 12.8 % (11.5-14.5); WHITE BLOOD COUNT 9.6 10^3/uL (4.0-10.0)
== END ==
LOC: M SFHCPLAZ 12:58 → M LRY 13:08
PROVIDERS: ATTEND Nurse Practitioner Adult Health
DX: K55.039 Acute (reversible) ischemia of large intestine, extent unspecified (principal); K55.1 Chronic vascular disorders of intestine
CPT/HCPCS: 85027; G0463

== ENCOUNTER 2017-01-24 09:15 | Inpatient (IN) | payer MEDICARE ==
[~2017-01-24] VITALS: Ht 160 cm; Wt 51.3 kg
[2017-01-24] MEDS: VITAMIN D 1,000 INTERNATIONAL UNITS TABLET PO SCH (09:00)
[2017-01-24] MEDS: MULTIVITAMINS/MINERALS THERAP 1 TAB PO SCH (09:00)
[~2017-01-24 09:15] MED LIST changes: -LISI-538 PO; -LUTECAP3 PO; -META48.54 PO; -RANI150T PO
[2017-01-24 09:59] LABS: BASO % 0.4 % (0.0-1.0); EOS # 0.1 10^3/uL (0.0-0.50); EOS % 1.2 % (0.0-3.0); IMMATURE GRANULOCYTE % 0.3 % (0-0); LYMPH # 3.7 10^3/uL (1.5-4.5); LYMPH % 35.3 % (24.0-44.0); MEAN CORPUSCULAR HEMOGLOBIN 29.2 pg (27.0-33.0); MEAN CORPUSCULAR HGB CONC 32.6 g/dl (32.0-36.5); MEAN CORPUSCULAR VOLUME 89.6 fl (80.0-96.0); MONO # 0.7 10^3/uL (0.0-0.8); MONO % 6.8 % (0.0-5.0); NEUTROPHILS # 5.8 10^3/uL (1.8-7.7); PLATELET COUNT, AUTOMATED 368 10^3/uL (150-450); RED CELL DISTRIBUTION WIDTH 12.9 % (11.5-14.5); WHITE BLOOD COUNT 10.4 10^3/uL (4.0-10.0)
[2017-01-24] MEDS ORDERED: ONDANSETRON 4MG/2ML VIAL (J2405) IV ONE (10:00)
[2017-01-24] MEDS ORDERED: NS 1,000 ML IV ONE (10:00)
[2017-01-24 10:09] LABS: INR 0.98
[2017-01-24 10:14] LABS: ALBUMIN 3.3 GM/DL (3.2-5.2); ALBUMIN/GLOBULIN RATIO 0.89 (1.00-1.93); ALKALINE PHOSPHATASE 76 U/L (45-117); ALT/SGPT 20 U/L (12-78); AMYLASE 107 U/L (25-115); ANION GAP 10 MEQ/L (8-16); AST/SGOT 19 U/L (7-37); BILIRUBIN,DIRECT 0.1 MG/DL (0.0-0.2); BILIRUBIN,TOTAL 0.6 MG/DL (0.2-1.0); BLOOD UREA NITROGEN 22 MG/DL (7-18); CARBON DIOXIDE LEVEL 26 MEQ/L (21-32); CHLORIDE LEVEL 103 MEQ/L (98-107); GLOMERULAR FILTRATION RATE 55.8 (>32); GLUCOSE, FASTING 128 MG/DL (83-110); POTASSIUM SERUM 4.2 MEQ/L (3.5-5.1); SODIUM LEVEL 139 MEQ/L (136-145)
--- NOTE | 2017-01-24 10:14 | REP ---
Chest one-view HISTORY: Vomiting Comparison: 12/19/2016 The lungs are clear. The heart is normal in size. The pulmonary vasculature is normal in appearance. An antireflux ring is present at the distal esophagus. Impression: No acute disease. Signed by Kenneth Ashford MD 01/24/2017 10:06 A
[2017-01-24] MEDS ORDERED: ISOVUE-370 76% 100ML VIAL (Q9967) As Ordered ONE (10:36)
--- NOTE | 2017-01-24 11:14 | ECGEPIP ---
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
[2017-01-24] MEDS ORDERED: LISI-538 PO (11:16)
[2017-01-24] MEDS ORDERED: META48.54 PO (11:17)
[2017-01-24] MEDS ORDERED: RANI150T PO (11:17)
[2017-01-24] MEDS ORDERED: LUTECAP3 PO (11:18)
--- NOTE | 2017-01-24 11:51 | REP ---
Clinical: Abdominal pain and gastrointestinal bleeding. Comparison: 12/19/2016. Technique: Axial contrast enhanced images from the lung bases to the pubic symphysis using 100 ml Isovue 370 intravenous contrast material with coronal and sagittal re-formations. Findings: The bowel gas pattern suggests an element of moderate enterocolitis with mural thickening essentially throughout the entire colon as well as elements of mural thickening to multiple loops of small bowel. Evaluation is limited by lack of oral contrast and paucity of fat as well as chronic stranding to the mesentery. There is no evidence for bowel obstruction and no free air to suggest perforation. The gas pattern in multiple loops of small bowel is complex and while not pathognomonic for pneumatosis, it does raise the possibility of an element of pneumatosis intestinalis and mesenteric ischemia. Close clinical observation is warranted. Liver demonstrates stable multiloculated lobulated cyst in the right lobe along with compensatory biliary ductal dilatation secondary to prior cholecystectomy. Spleen, pancreas, bilateral adrenal glands and kidneys are normal / stable. The patient appears to be status post banding at the gastroesophageal junction. Pelvis demonstrates normal bladder and evidence for prior hysterectomy. No ascites. No obvious adenopathy. Extensive atherosclerotic changes throughout the aorta and branch vessels noted including significant narrowing and calcifications at the origins of the celiac axis, superior mesenteric artery and right renal artery. Impression: 1. Enteric findings as described above suggest a moderate enterocolitis and the complexity to the small bowel gas pattern is not pathognomonic for but raises the possibility of pneumatosis intestinalis. Close clinical observation is recommended. 2. Extensive atherosclerotic changes including narrowing to the origins of the celiac axis and superior mesenteric artery and right renal artery. Signed by Zachary Ch MD 01/24/2017 11:42 A
[2017-01-24] MEDS ORDERED: fentaNYL 100 MCG/2 ML INJECTION (J3010) IV ONE (12:45)
[2017-01-24] MEDS ORDERED: MORPHINE 2 MG/ML 1ML SYRINGE IV ONE (12:45)
[2017-01-24] MEDS ORDERED: NS 1,500 ML IV SCH (14:00)
[2017-01-24] MEDS ORDERED: ACETAMINOPHEN 650MG ER TAB (TYLENOL ARTHRITIS) PO PRN (14:00)
[2017-01-24] MEDS ORDERED: NITROGLYCERIN 0.4 MG SUBL TABLET SL PRN (14:00)
[2017-01-24] MEDS ORDERED: ONDANSETRON 4MG/2ML VIAL (J2405) IV PRN (14:00)
--- NOTE | 2017-01-24 14:39 | HPEPDOC ---
General Date of Admission Jan 24, 2017 at 13:54 Attending Physician: KYUNG MCKNIGHT MD Chief Complaint The patient is a 86-year-old female admitted with a reason for visit of Nausea Vomiting. History of Present Illness 86-year-old female with past medical history of hypertension, dyslipidemia, CAD , and history of GI bleed who was recently admitted here at [facility] from 12/19- for ischemic colitis with mesenteric artery stenosis presented to the ER with a chief complaint of nausea/vomiting with accompanied generalized weakness. During previous hospitalization, the patient was taken for an angiogram of the celiac and superior mesenteric arteries for evaluation of mesenteric ischemia, and this did not show any significant occlusion. Rather, the patient's ischemic colitis was deemed a manifestation of dehydration resulting in poor perfusion in the watershed area. At this time, the patient presents with an acute episode of nausea and nonbilious vomiting. The patient states that she was feeling well up until this morning when she had the aforementioned singular episode. She denies any associated fevers, chills, chest pain, palpitations, abdominal pain, or any nausea/vomiting. However, the patient's daughter does state that she did have 1 episode of a loose stool. In the ER, the patient was noted to be hemodynamically stable, with no significant findings on CBC/CMP. A CT scan of the abdomen/pelvis revealed findings suggestive of moderate enterocolitis with the possibility of pneumatosis intestinalis. Dr. Ozuna of surgery was consulted in the ER and has recommended medical observation. At this time, the patient will be admitted to the hospital service for further evaluation and monitoring. Home Medications Scheduled (Co Q 10) 100 Mg Cap, 200 MG PO DAILY, (Reported) (Lutein 20) 1 Cap Cap, 1 CAP PO DAILY, (Reported) Amlodipine Besylate (Amlodipine Besylate) 5 Mg Tab, 5 MG PO QHS, (Reported) Atorvastatin Calcium (Lipitor) 20 Mg Tab, 20 MG PO QHS, (Reported) Carvedilol (Carvedilol) 6.25 Mg Tab, 6.25 MG PO BID, (Reported) Cholecalciferol (D3) 1,000 Unit Tab, 1,000 UNIT PO DAILY, (Reported) Clopidogrel Bisulfate (Clopidogrel) 75 Mg Tab, 75 MG PO DAILY Cyanocobalamin (B12) 1,000 Mcg Tab, 2,000 MCG PO DAILY, (Reported) Lisinopril (Lisinopril) 20 Mg Tab, 20 MG PO BID, (Reported) Multivitamins *[facility] STOCKED* (Thera M Plus *[facility] STOCKED*) 1 Tab Tab, 1 TAB PO DAILY, (Reported) Psyllium (Metamucil) 48.57 % Pow, 1 PKT PO DAILY, (Reported) Pyridoxine HCl (B6 Natural) 100 Mg Tab, 100 MG PO DAILY, (Reported) Ranitidine HCl (Ranitidine HCl) 150 Mg Tab, 1 TAB PO 3XW, (Reported) FRIDAY,FRIDAY,FRIDAY Spironolactone (Spironolactone) 25 Mg Tab, 12.5 MG PO DAILY, (Reported) Scheduled PRN Acetaminophen (Tylenol 8 Hour Arthritis) 650 Mg Tab, 650 MG PO Q8H PRN for PAIN, (Reported) Nitroglycerin (Nitrostat) 0.4 Mg Subl, 0.4 MG SL NITRO PRN for CHEST PAIN, ( Reported) Allergies Coded Allergies: Codeine (Verified Adverse Reaction, Mild, SENSITIVE, 05/31/12) Latex (Verified Adverse Reaction, Mild, RISK, 05/31/12) Past Medical History Medical History As noted in HPI. Surgical History Appendectomy. 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 Inguinal hernia repair 1960s. Hysterectomy 1961. Cholecystectomy . Hiatal hernia repair. Vein ligation. Left mastectomy with cancer. Right index finger surgery with a lump. Colonoscopy. Esophagogastroduodenoscopy (EGD). Cataract surgery bilateral. Right-sided breast lumpectomy. Vaginal wall repair and rectal repair. Right shoulder surgery. Family History Father with prostate cancer, hypertension and heart disease, diabetes. Mother had hypertension, coronary artery disease and diabetes Social History * Smoker: Denies Alcohol: Denies Drugs: denies The patient lives by herself at baseline, but daughter lives next door and checks on her often. Review of Symptoms Other systems 10 point review of systems negative unless otherwise specified in HPI. Physical Examination General Exam: Positive: Alert, Cooperative, No Acute Distress ENT Exam: Positive: Atraumatic, Mucous membr. moist/pink Neck Exam: Negative: JVD Chest Exam: Positive: Clear to auscultation, Normal air movement Heart Exam: Positive: Rate Normal, Normal S1, Normal S2 Abdomen Exam: Positive: Soft, Negative: Tenderness Extremity Exam: Negative: Tenderness, Swelling Vital Signs Vital Signs Date Time Temp Pulse Resp B/P (MAP) Pulse Ox O2 Delivery O2 Flow Rate FiO2 01/24/17 13:31 97.8 20 01/24/17 13:30 62 118/58 (78) 96 Room Air Laboratory Data Labs 24H Laboratory Tests 2 01/24/17 09:35: Immature Granulocyte % (Auto) 0.3H, White Blood Count 10.4H, Red Blood Count 3.36L, Hemoglobin 9.8L, Hematocrit 30.1L, Mean Corpuscular Volume 89.6, Mean Corpuscular Hemoglobin 29.2, Mean Corpuscular Hemoglobin Concent 32.6, Red Cell Distribution Width 12.9, Platelet Count 368, Neutrophils (%) (Auto) 56.0, Lymphocytes (%) (Auto) 35.3, Monocytes (%) (Auto) 6.8H, Eosinophils (%) (Auto) 1.2, Basophils (%) (Auto) 0.4, Neutrophils # (Auto) 5.8, Lymphocytes # (Auto) 3.7, Monocytes # (Auto) 0.7, Eosinophils # (Auto) 0.1, Basophils # (Auto) 0.0, Immature Granulocyte # (Auto) 0.0, Nucleated Red Blood Cells % (auto) 0.0, Prothrombin Time 13.1, Prothromb Time International Ratio 0.98, Activated Partial Thromboplast Time 29.2, Anion Gap 10, Glomerular Filtration Rate 55.8, Lactic Acid Level 2.0, Calcium Level 9.0, Aspartate Amino Transf (AST/SGOT) 19, Alanine Aminotransferase (ALT/SGPT) 20, Alkaline Phosphatase 76, Total Bilirubin 0.6, Direct Bilirubin 0.1, Total Creatine Kinase 51, Creatine Kinase MB 1.1, Creatine Kinase MB Relative Index 2.15, Troponin I < 0.02, Total Protein 7.0, Albumin 3.3, Albumin/Globulin Ratio 0.89L, Amylase Level 107, Lipase 296 CBC/BMP Laboratory Tests 01/24/17 09:35 Red Blood Count 3.36 L, Mean Corpuscular Volume 89.6, Mean Corpuscular Hemoglobin 29.2, Mean Corpuscular Hemoglobin Concent 32.6, Red Cell Distribution Width 12.9, Neutrophils (%) (Auto) 56.0, Lymphocytes (%) (Auto) 35.3, Monocytes (%) (Auto) 6.8 H, Eosinophils (%) (Auto) 1.2, Basophils (%) ( Auto) 0.4, Neutrophils # (Auto) 5.8, Lymphocytes # (Auto) 3.7, Monocytes # (Auto ) 0.7, Eosinophils # (Auto) 0.1, Basophils # (Auto) 0.0 Microbiology Microbiology 01/24/17 Blood Culture, Received Pending 01/24/17 Blood Culture, Received Pending Plan / VTE VTE Prophylaxis Ordered?: Yes Plan Plan Nausea/Vomiting 2/[address] of the Abd/Pel noted Surgical input in the ER appreciated--will consult them to follow here as an inpatient We will keep the patient NPO Gentle IVF Hydration ordered Rocephin and Flagyl ordered for intra-abdominal coverage for colitis Blood Cultures, GI panel ordered We will cont to monitor the patient ?Episode of Hematuria Patient's daughter states that her mother had 1 episode of pinkish colored urine prior to her ER visit CT of the Abd/Pel with no abnormal structural findings of the Kidneys or Bladder H&H within baseline limits--we will repeat another H&H UA pending We will check a Renal U/S Cont Plavix for now Dyslipidemia Statin Hypertension, stable Continue lisinopril, Coreg, Norvasc CAD Continue Plavix, statin, Coreg, lisinopril GERD Protonix Vitamin D deficiency Continue vitamin D supplementation DVT Prophylaxis Heparin subcutaneous The patient will be admitted under the service of Dr. Mcknight, who will begin to follow the patient on 01/25/17 at 7am. YOSEPH RODRIGUEZ MD Jan 24, 2017 14:39
--- NOTE | 2017-01-24 14:51 | REP ---
Clinical: Hematuria. Technique: Real time cannon scale and color evaluation using curved array transducer. Findings: The bilateral kidneys are relatively normal in contour, size, echogenicity, and reniform shape without hydronephrosis, obvious nephrolithiasis, cystic or mass lesion. Bilateral age-related renovascular calcifications are suggested. Right kidney measures 9.5 x 4.4 x 4.3 cm. Left kidney measures 9.5 x 4.7 x 4.4 cm. Bladder is grossly unremarkable. Impression: Age-related changes including bilateral renovascular calcifications. No hydronephrosis or nephrolithiasis identified. Signed by Zachary Ch MD 01/24/2017 02:42 P
--- NOTE | 2017-01-24 14:56 | CR ---
DATE OF CONSULTATION: 01/24/2017 REASON FOR CONSULTATION: Abnormal CAT scan. BRIEF HISTORY OF PRESENT ILLNESS: Patient is a 86-year-old female who has been recently admitted for abdominal pain and there was concerns of ischemic colitis at that time. She had some nausea, vomiting, diarrhea during that admission was seen and had some slow progression of GI function and was discharged to home. During that time she ended up having significant calcifications appreciated on her CT scans in the area of the origins of the superior mesenteric artery (SMA), inferior mesenteric artery (RICARDO) and celiac and thus underwent a angiogram which revealed no significant stenosis. She had a lactic acidosis on that admission, but on this admission has no evidence a lactic acidosis. When she described her bowel movement this morning it was very pink, and has some on her clothing here and showed this to me and it is very pink instead of typical blood. She has no abdominal pain at this time. No nausea and no vomiting. No discomfort except she has had some right groin pain ever since she had the angiogram. Once again, at this point she has no nausea, vomiting. She did have some originally and there was question whether there was a slight amount of blood when she threw up. The hematemesis was a slight blood streaking to the to the vomitus but not a significant amount of hematemesis. She has been hemodynamically stable. Has not had any further bowel movements here. No diarrheal bowel movements here. Her CAT scan was performed and shows inflammatory changes throughout the colon and there is some questionable inflammation of the small bowel as well. There is a lot of air in the bowel and I am not seeing it within the wall itself with a double-lumen sign and there is a suggestion that there may be pneumatosis intestinalis, but looking at the vascular supply I can see perfusion to the mesentery in multiple areas where there is this air seen. She has had no workup from an infectious standpoint for her diarrhea as of yet. Starts with a white count of 10,000 and is anemic. She is on Plavix. She is on Zantac. PAST MEDICAL/SURGICAL HISTORY: Significant for: 1. History of hypertension. 2. History of dyslipidemia. 3. History of hypertensive heart disease. 4. History of vascular heart disease. 5. History of gastrointestinal (GI) bleeding. 6. History of ischemic colitis with mesenteric artery stenosis (although followup angiogram revealed no significant stenosis). 7. History of hiatal hernia repair. 8. History of hysterectomy. 9. Cholecystectomy. 10. Vaginal repair. 11. Multiple abdominal surgeries including appendectomy. 12. History of a GI bleeding in the remote past. PHYSICAL EXAMINATION Reveals a 86-year-old female who looks stated age. She looks a very comfortable, sitting comfortably in bed, not complaining of any pain or discomfort. She still complains of pain in her right groin where she had the angiogram performed and it has been the same since the time of the angiogram. It has not worsened and seems unrelated to this other issue that she has ongoing. States that her belly does not hurt when people have been poking at her except do not touch her in the right groin area because that hurts. I have reviewed the CAT scan and I do not see any AV malformation in this area. I do not see any aneurysmal dilatation associated with this and I do not feel a thrill or bruit in this area either. Otherwise, HEENT is unremarkable. Neck supple without adenopathy. Lungs are clear although diminished at the bases. Heart is regular with multiple irregular beats. Abdomen is soft, nondistended, nontender. No guarding. No rebound. No peritoneal signs are appreciated. Extremities are warm, well-perfused. IMPRESSION AND PLAN: The patient has possible enterocolitis given the inflammatory changes appreciated with some mucosal thickening of colon. This could easily be infectious enteritis and I would recommend a GI infectious workup, such as C. Difficile, etc., given her recent hospitalization. It seems less likely given the distribution that this would be an ischemic type of enteritis given that it is a pancolitis, although I do feel that there is more thickening of the bowel on the right colon and even in the rectum, i.e. the distribution not consistent with a likely ischemic colitis. Thus, at this point, I would recommend supportive care, possible treatment with Cipro, Flagyl or any other broad-spectrum antibiotic and IV fluids for hydration. I would keep her n.p.o. until she shows some significant improvement and typically we do not proceed with upper and lower endoscopy in individuals that we have a concern for infectious enteritis and I am not convinced at this point, especially without significant findings on her physical exam or any significant abdominal complaints that she has, as a the long shot, an ischemic etiology for this. In general the pneumatosis intestinalis concern may be a benign finding for her or it may just be that she has a distribution of air throughout the colon in this manner because of her enteritis. Thank you for this consult. I will follow her with you.
[2017-01-24 18:00] VITALS: BP 134/99
[2017-01-24] MEDS: metroNIDAZOLE 500 MG in APPROPRIATE DILUENT 1 EA IV SCH (18:20)
[2017-01-24] MEDS: PANTOPRAZOLE 40MG INJ (PROTONIX) (C9113) IV SCH (18:20)
[2017-01-24] MEDS: CLOPIDOGREL 75 MG TAB PO SCH (18:20)
[2017-01-24 20:00] VITALS: BP 142/63
[2017-01-24] MEDS: CARVedilol 6.25 MG TAB PO SCH (21:00)
[2017-01-24 21:14] VITALS: BP 136/58
[2017-01-24] MEDS: CEFTRIAXONE SOD 1 GM in APPROPRIATE DILUENT 1 EA IV SCH (21:20)
[2017-01-24] MEDS: HEPARIN SOD (PORCINE) 5000 UNITS/ML VIAL SQ SCH (21:22)
[2017-01-24] MEDS: ATORVASTATIN 20 MG TAB PO SCH (21:23)
[2017-01-24 22:49] VITALS: BP 125/58
[2017-01-24] MEDS: amLODIPine 5 MG TAB PO SCH (22:50)
[2017-01-24] MEDS: LISINOPRIL 20 MG TAB PO SCH (22:51)
[2017-01-24 23:59] VITALS: BP 137/63
[2017-01-25] MEDS: metroNIDAZOLE 500 MG in APPROPRIATE DILUENT 1 EA IV SCH ×4 (00:04→23:57)
[2017-01-25 04:00] VITALS: BP 121/56
[2017-01-25 05:28] LABS: MEAN CORPUSCULAR HEMOGLOBIN 29.1 pg (27.0-33.0); MEAN CORPUSCULAR HGB CONC 32.4 g/dl (32.0-36.5); MEAN CORPUSCULAR VOLUME 89.7 fl (80.0-96.0); PLATELET COUNT, AUTOMATED 319 10^3/uL (150-450); RED CELL DISTRIBUTION WIDTH 12.7 % (11.5-14.5); WHITE BLOOD COUNT 6.5 10^3/uL (4.0-10.0)
[2017-01-25 05:47] LABS: ALBUMIN 2.4 GM/DL (3.2-5.2); ALKALINE PHOSPHATASE 61 U/L (45-117); ALT/SGPT 15 U/L (12-78); ANION GAP 5 MEQ/L (8-16); AST/SGOT 14 U/L (7-37); BILIRUBIN,TOTAL 0.4 MG/DL (0.2-1.0); BLOOD UREA NITROGEN 14 MG/DL (7-18); CALCIUM LEVEL 7.8 MG/DL (8.8-10.2); CARBON DIOXIDE LEVEL 27 MEQ/L (21-32); CHLORIDE LEVEL 110 MEQ/L (98-107); CREATININE FOR GFR 0.81 MG/DL (0.55-1.02); GLOMERULAR FILTRATION RATE > 60.0 (>32); GLUCOSE, FASTING 95 MG/DL (83-110); MAGNESIUM LEVEL 1.9 MG/DL (1.8-2.4); POTASSIUM SERUM 3.8 MEQ/L (3.5-5.1); SODIUM LEVEL 142 MEQ/L (136-145); TOTAL PROTEIN 5.4 GM/DL (6.4-8.2)
[2017-01-25 07:15] VITALS: BP 139/65
[2017-01-25] MEDS: MULTIVITAMINS/MINERALS THERAP 1 TAB PO SCH (08:09)
[2017-01-25] MEDS: PANTOPRAZOLE 40MG INJ (PROTONIX) (C9113) IV SCH (08:10)
[2017-01-25] MEDS: VITAMIN D 1,000 INTERNATIONAL UNITS TABLET PO SCH (08:10)
[2017-01-25] MEDS: LISINOPRIL 20 MG TAB PO SCH ×2 (08:10→20:40)
[2017-01-25] MEDS: HEPARIN SOD (PORCINE) 5000 UNITS/ML VIAL SQ SCH ×2 (08:10→20:40)
[2017-01-25] MEDS: CARVedilol 6.25 MG TAB PO SCH ×2 (08:11→20:39)
[2017-01-25] MEDS: CLOPIDOGREL 75 MG TAB PO SCH ×2 (08:46→20:39)
[2017-01-25 10:43] LABS: REASON FOR REVIEW COMPREHENSIVE REVIEW
[2017-01-25 11:04] LABS: PERCENT SATURATION 17.3 % (13.2-45.0)
[2017-01-25 11:04] LABS: RETIC HEMOGLOBIN EQUIVALENT 32.4 pg (24-36); RETICULOCYTE % 0.9 % (0.5-1.5)
[2017-01-25] MEDS: LACTOBACILLUS ACIDOPHILUS CAP (BACID) PO SCH ×2 (11:50→18:29)
[2017-01-25 12:00] VITALS: BP 143/65
--- NOTE | 2017-01-25 13:17 | IPN ---
DATE: 01/25/2017 SUBJECTIVE: Today the patient tells me that she is feeling better. She has not had any further nausea. She denies any further vomiting since arriving to the hospital. She denies any abdominal pain. She has some pain in the incision site where she had her angiogram but otherwise no specific complaints at this time and actually doing quite well. OBJECTIVE: VITAL SIGNS: Temperature 98.9, pulse 67, respiratory rate 20, blood pressure 139/65, oxygen saturation 97% on room air. GENERAL: She is a frail, elderly female laying flat in bed. She does not appear to be in any acute distress. HEENT: She has a tremor of her lower lip. She speaks slowly but is oriented times three. She has moist mucous membranes. No elevation of central venous pressure (CVP). CARDIOVASCULAR EXAM: S1, S2 regular. RESPIRATORY EXAM: Clear. ABDOMINAL EXAM: Actually quite benign. Bowel sounds are present. The abdomen is soft. EXTREMITIES: No clubbing, cyanosis or edema. LABORATORY STUDIES: WBC 6.5, hemoglobin 8.5, platelet count 319. Chemistry panel: Sodium 142, potassium 3.8, chloride 110, bicarbonate 27, BUN 14, creatinine 0.8. INR 0.9. UA is too numerous to count WBCs, 3+ leukocyte esterase and 1+ bacteria. Microbiology: Urine culture is pending. Blood cultures are pending. IMAGING: The patient had a renal ultrasound that revealed age-related changes, as well as bilateral renovascular calcifications. No hydronephrosis or nephrolithiasis identified. She had a CT scan of the abdomen and pelvis, which revealed enteric findings suggestive of moderate enterocolitis and raised a question of pneumatosis intestinalis, as well as extensive atherosclerotic change, including narrowing to the origins of the celiac axis and superior mesenteric artery and right renal artery. ASSESSMENT AND PLAN: This is an 86-year-old female who presented with nausea and vomiting in the setting of what was recent ischemic colitis. Problems: 1. Nausea and vomiting with colitis. At the present time, it appears as though her symptoms have resolved. She is on ceftriaxone and Flagyl. Her belly is quite benign as are many of her labs. I do not suspect ischemic colitis at this time. Will continue with antibiotics and followup her cultures. A GI PCR panel was ordered; however, an adequate sample was unable to be obtained. Her symptoms are improving. She has been seen by Sulma whose help is appreciated. At this time, I will advance her diet to clear liquids and see how she tolerates it. 2. Anemia. Her hemoglobin likely has some element of dilutional drop looking at all other cell lines as well. There was concern for hematuria versus intestinal bleeding. I will send iron studies and check an occult stool for blood. 3. Abnormal UA. Highly suspicious for urinary tract infection. She is on ceftriaxone and metronidazole. Will followup with culture. 4. Coronary artery disease. She is on Plavix, statin, beta juan, lisinopril. 5. Hypertension. Controlled with Norvasc, Coreg and lisinopril. 6. Dyslipidemia. She is on Lipitor. 7. Vitamin D deficiency. She is on supplementation. 8. Deep vein thrombosis (DVT) prophylaxis. She is on subcutaneous heparin. We have a very low suspicious for any active bleeding. Will continue to monitor her closely. She does appear to be improving at this time and will work with physical therapy.
[2017-01-25 16:40] VITALS: BP 161/69
[2017-01-25] MEDS: CEFTRIAXONE SOD 1 GM in APPROPRIATE DILUENT 1 EA IV SCH (18:30)
--- NOTE | 2017-01-25 19:34 | IPN ---
DATE: 01/25/2017 The patient overall has done well overnight. Overall has not had any nausea, vomiting. Had some soft stools this morning but otherwise has been feeling well. She was found have a urinary tract infection and still is having some soft/diarrheal bowel movements but without abdominal pain. No crampy abdominal pain. No nausea. No vomiting overnight. No significant other complaints at this point. Her white count was slightly elevated at 10.4 and is at 6.5 after hydration overnight. She does not remark about any bloody bowel movements. Her abdomen is soft, nontender, nondistended. No significant abdominal findings are appreciated. She has been afebrile and her white count was normal. IMPRESSION AND PLAN: The patient has evidence of possible enterocolitis just given the presentation that she has. I feel that it is less likely to be an ischemic colitis given the distribution, as I stated yesterday, and she does not have pain, which would be very unusual for someone with ischemic colitis. There may be some ongoing mild enterocolitis or it may be that CT scans, which are typically for assessments of colonic mucosal thickening, maybe wrong in this instance and thus at this point I do feel that it is still reasonable to treat her empirically for infectious etiology for her diarrhea and get some stool studies on her, but if she tolerates a progressive diet., she can be discharged home after she tolerates a regular diet on antibiotic treatment. I do feel as an outpatient she should undergo a possible upper and lower endoscopy when she is stabilized but otherwise at this point she seems to be clinically stable. From a surgical standpoint, no operative intervention is necessary. Her second issue was her right groin pain. 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 If this is still persistent in the next several weeks, she should be referred to the pain clinic for further evaluation for possible trigger point injection.
[2017-01-25] MEDS: ATORVASTATIN 20 MG TAB PO SCH (20:40)
[2017-01-25] MEDS: amLODIPine 5 MG TAB PO SCH (20:40)
[2017-01-25 20:47] VITALS: BP 129/57
[2017-01-26 06:00] VITALS: BP_SYST 141; BP_SYST 164; BP_DIAS 71
[2017-01-26 06:35] LABS: MEAN CORPUSCULAR HEMOGLOBIN 28.3 pg (27.0-33.0); MEAN CORPUSCULAR HGB CONC 31.8 g/dl (32.0-36.5); MEAN CORPUSCULAR VOLUME 88.8 fl (80.0-96.0); PLATELET COUNT, AUTOMATED 335 10^3/uL (150-450); RED CELL DISTRIBUTION WIDTH 12.7 % (11.5-14.5); WHITE BLOOD COUNT 5.9 10^3/uL (4.0-10.0)
[2017-01-26 07:07] LABS: ALBUMIN 2.7 GM/DL (3.2-5.2); ALBUMIN/GLOBULIN RATIO 0.84 (1.00-1.93); ALKALINE PHOSPHATASE 63 U/L (45-117); ALT/SGPT 18 U/L (12-78); ANION GAP 5 MEQ/L (8-16); AST/SGOT 19 U/L (7-37); BILIRUBIN,TOTAL 0.3 MG/DL (0.2-1.0); BLOOD UREA NITROGEN 9 MG/DL (7-18); CALCIUM LEVEL 8.2 MG/DL (8.8-10.2); CARBON DIOXIDE LEVEL 26 MEQ/L (21-32); CHLORIDE LEVEL 110 MEQ/L (98-107); GLOMERULAR FILTRATION RATE > 60.0 (>32); GLUCOSE, FASTING 100 MG/DL (83-110); POTASSIUM SERUM 3.4 MEQ/L (3.5-5.1); SODIUM LEVEL 141 MEQ/L (136-145); TOTAL PROTEIN 5.9 GM/DL (6.4-8.2)
[2017-01-26] MEDS ORDERED: POTASSIUM CHLORIDE 10 MEQ SR TABLET PO ONE (08:30)
[2017-01-26] MEDS: metroNIDAZOLE 500 MG in APPROPRIATE DILUENT 1 EA IV SCH ×3 (08:47→23:39)
[2017-01-26] MEDS: CARVedilol 6.25 MG TAB PO SCH ×2 (08:49→20:53)
[2017-01-26] MEDS: LACTOBACILLUS ACIDOPHILUS CAP (BACID) PO SCH ×3 (08:49→17:37)
[2017-01-26] MEDS: MULTIVITAMINS/MINERALS THERAP 1 TAB PO SCH (08:50)
[2017-01-26] MEDS: VITAMIN D 1,000 INTERNATIONAL UNITS TABLET PO SCH (08:50)
[2017-01-26] MEDS: LISINOPRIL 20 MG TAB PO SCH ×2 (08:50→20:52)
[2017-01-26] MEDS: HEPARIN SOD (PORCINE) 5000 UNITS/ML VIAL SQ SCH ×2 (08:50→20:52)
[2017-01-26] MEDS: PANTOPRAZOLE 40MG INJ (PROTONIX) (C9113) IV SCH (08:50)
--- NOTE | 2017-01-26 13:07 | IPN ---
DATE OF EXAMINATION: 01/26/2017 SUBJECTIVE: Today the patient tells me that she is feeling better. She feels great. She actually wants to go home. She denies any abdominal pain, further vomiting or diarrhea. OBJECTIVE: VITAL SIGNS: Temperature 98.6, pulse 70, respiratory rate 18, blood pressure 164/71, oxygen saturation 95% on room air. GENERAL: She is a frail, elderly female, sitting up in bed, eating breakfast. She does not appear to be in any acute distress whatsoever. HEENT: Cranial nerves II-XII are grossly intact. She has moist mucous membranes. No elevation of central venous pressure (CVP). CARDIOVASCULAR EXAM: S1, S2 regular. RESPIRATORY EXAM: Is clear. ABDOMINAL EXAM: Is benign. EXTREMITIES: No clubbing, cyanosis or edema. LABORATORY STUDIES: WBC 5.9, hemoglobin 9.3, platelet count 335. Chemistry panel: Sodium 141, potassium 3.4, repleted chloride 110, bicarbonate 26, BUN 9, creatinine 0.8. Iron level is low at 44. Urinalysis is positive 3+ leukocyte esterase, too numerous to count white blood cells and 1+ bacteria. IBD panel is pending. Microbiology: Blood cultures are negative. Urine culture is pending. No new imaging. ASSESSMENT AND PLAN: This is an 86-year-old female who presented with nausea and vomiting with colitis. PROBLEMS: 1. Nausea and vomiting with colitis. The patient's symptoms appear to have resolved. She is on ceftriaxone and Flagyl. Her belly is quite benign. She has not had any abdominal pain since I have seen her. Lactic acid was normal. A GI PCR panel is ordered; however, she has not had any appropriate stool to send for sample. Dr. Ozuna's help is appreciated. He suggested that it appears to be IBD and thinks she would benefit from outpatient upper and lower endoscopy should she be agreeable to have this conducted. 2. Abnormal urinalysis. This is certainly concerning for a urinary tract infection. She is on antibiotics. A urinary tract infection certainly could cause nausea and vomiting but it is minimal and improve quite quickly with antibiotics. We will followup her culture and her antibiotic spectrum is appropriate. 3. Anemia. Her hemoglobin likely has some element of dilutional drop. It appears to be relatively stable over the last 48 hours. She does appear to have an element of iron deficiency. I will start her iron supplementation. 3. Coronary artery disease. She is on Plavix, statin, beta-juan and lisinopril. 4. Hypertension. Controlled with Norvasc, Coreg and lisinopril. 5. Dyslipidemia. She is on Lipitor. 6. Vitamin D. She is on supplementation. 7. Deep vein thrombosis (DVT) prophylaxis. She is on subcutaneous heparin. DISPOSITION: Pending physical therapy and her urine culture results, I suspect she may be ready for discharge home within the next 24-48 hours. KATHLEEN
[2017-01-26 14:00] VITALS: BP 161/63
[2017-01-26] MEDS: CEFTRIAXONE SOD 1 GM in APPROPRIATE DILUENT 1 EA IV SCH (17:37)
[2017-01-26 19:50] VITALS: BP 164/62
[2017-01-26] MEDS: CLOPIDOGREL 75 MG TAB PO SCH (20:53)
[2017-01-26] MEDS: amLODIPine 5 MG TAB PO SCH (20:54)
[2017-01-26] MEDS: ATORVASTATIN 20 MG TAB PO SCH (20:54)
[2017-01-27 02:03] VITALS: BP 162/66
[2017-01-27] MEDS ORDERED: PROMETHAZINE INJ 25 MG/ML VIAL (J2550) IV PRN (02:30)
[2017-01-27 04:45] VITALS: BP 127/44
[2017-01-27 08:17] LABS: MEAN CORPUSCULAR HEMOGLOBIN 28.7 pg (27.0-33.0); MEAN CORPUSCULAR HGB CONC 32.2 g/dl (32.0-36.5); MEAN CORPUSCULAR VOLUME 89.1 fl (80.0-96.0); PLATELET COUNT, AUTOMATED 364 10^3/uL (150-450); RED CELL DISTRIBUTION WIDTH 12.8 % (11.5-14.5); WHITE BLOOD COUNT 6.6 10^3/uL (4.0-10.0)
[2017-01-27] MEDS: PANTOPRAZOLE 40MG INJ (PROTONIX) (C9113) IV SCH (08:27)
[2017-01-27] MEDS: LACTOBACILLUS ACIDOPHILUS CAP (BACID) PO SCH ×2 (08:28→12:06)
[2017-01-27] MEDS: HEPARIN SOD (PORCINE) 5000 UNITS/ML VIAL SQ SCH (08:28)
[2017-01-27] MEDS: metroNIDAZOLE 500 MG in APPROPRIATE DILUENT 1 EA IV SCH (08:28)
[2017-01-27 08:29] VITALS: BP 127/44
[2017-01-27] MEDS: CARVedilol 6.25 MG TAB PO SCH (08:29)
[2017-01-27] MEDS: MULTIVITAMINS/MINERALS THERAP 1 TAB PO SCH (08:29)
[2017-01-27] MEDS: VITAMIN D 1,000 INTERNATIONAL UNITS TABLET PO SCH (08:29)
[2017-01-27] MEDS: LISINOPRIL 20 MG TAB PO SCH (08:29)
[2017-01-27 09:00] LABS: ALBUMIN/GLOBULIN RATIO 0.94 (1.00-1.93); ALKALINE PHOSPHATASE 69 U/L (45-117); ALT/SGPT 22 U/L (12-78); ANION GAP 6 MEQ/L (8-16); AST/SGOT 24 U/L (7-37); BILIRUBIN,TOTAL 0.3 MG/DL (0.2-1.0); BLOOD UREA NITROGEN 10 MG/DL (7-18); CALCIUM LEVEL 8.5 MG/DL (8.8-10.2); CARBON DIOXIDE LEVEL 28 MEQ/L (21-32); CHLORIDE LEVEL 109 MEQ/L (98-107); CREATININE FOR GFR 0.93 MG/DL (0.55-1.02); GLOMERULAR FILTRATION RATE > 60.0 (>32); GLUCOSE, FASTING 125 MG/DL (83-110); SODIUM LEVEL 143 MEQ/L (136-145); TOTAL PROTEIN 6.2 GM/DL (6.4-8.2)
[2017-01-27] MEDS ORDERED: FERROUS SULFATE 325MG TAB PO SCH (09:00)
[2017-01-27 14:00] VITALS: BP 134/44
[2017-01-27] MEDS ORDERED: FLAG500T PO (15:06)
[2017-01-27] MEDS ORDERED: CIPR500T3 PO (15:06)
[2017-01-27] MEDS ORDERED: RISATAB3 PO (15:06)
--- NOTE | 2017-01-28 21:28 | DSES ---
DATE OF ADMISSION: 01/24/2017 DATE OF DISCHARGE: 01/27/2017 DISCHARGE DIAGNOSIS: Nausea and vomiting with colitis. SECONDARY DIAGNOSES: 1. Urinary tract infection. 2. Anemia. 3. Coronary artery disease. 4. Hypertension. 5. Dyslipidemia. 6. Vitamin D deficiency. HOSPITAL COURSE: The patient is an 86-year-old female who was recently admitted with abdominal pain. There was concern for ischemic colitis; however, angiogram was not confirming of this. She was actually discharged and returned on 01/24. At that time, she was having nausea and vomiting. Her nausea and vomiting did resolve with being kept nothing by mouth. She was started on empiric ceftriaxone and Flagyl. She was seen in consultation by Dr. Ozuna, who had concern based on her CT can for colitis and possibly even inflammatory bowel disease. Neither he nor I was overly concerned with ischemic colitis given her presentation this time without significant abdominal pain. No elevated lactic acid. No blood in her stool. She did improve very quickly and her diet advanced. Dr. Ozuna did have concern for possible inflammatory bowel disease and serology panel has been sent and is currently pending. Gastrointestinal (GI) polymerase chain reaction (PCR) panel was negative, and occult stool for blood was also negative. She did have an abnormal urinalysis (UA) and the urine culture which was positive for Enterococcus faecalis. She recently had a urine culture positive for Escherichia (E.) coli. At the present time, her symptoms are improved. She has been cleared by physical therapy. SUBJECTIVE: The patient tells me she feels well and wants to go home and has no complaints. OBJECTIVE: VITAL SIGNS: Temperature 98.7, pulse 62, respiratory rate 16, blood pressure 127/44, oxygen saturation 95% on room air. GENERAL: She is a very frail, elderly female sitting up in bed. She does not appear to be in any acute distress. She is accompanied by her daughter. HEENT: Cranial nerves II through XII are grossly intact. She has moist mucous membranes. No elevation of central venous pressure (CVP). CARDIOVASCULAR: S1, S2 regular. RESPIRATORY: Exam is clear. ABDOMEN: Exam is benign. Bowel sounds are present. The abdomen is soft and nontender to palpation. EXTREMITIES: No clubbing, cyanosis or edema. LABORATORY DATA: WBC 6.6, hemoglobin 12.5, platelets 364. Chemistry panel: Sodium 143, potassium 4.0, chloride 109, bicarbonate 28, BUN 10, creatinine 0.9. IBD serology panel is pending. Microbiology positive for Enterococcus faecalis. Peripheral smear reveals normocytic normochromic anemia for many years. Possibly age related to multifactorial anemia. IMAGING: She had a renal ultrasound that revealed age-related changes including bilateral renovascular calcifications. No hydronephrosis or nephrolithiasis. She also had a CT scan of the abdomen and pelvis which revealed moderate enterocolitis. ASSESSMENT AND PLAN: This is an 86-year-old female who presented with nausea and vomiting and colitis. 1. Nausea, vomiting and colitis. Her symptoms did quickly resolve. She has been on ceftriaxone and Flagyl. She will be discharged on ciprofloxacin and Flagyl by mouth. Her belly has been quite benign. Dr. Ozuna's help was greatly appreciated. He has suggested an inflammatory bowel disease (IBD) workup and suggests that the patient undergo upper and lower endoscopies in the outpatient setting in the near future, and the patient is to followup with him regarding this. She had previously not tolerated the bowel prep very well and it made her quite sick. Would recommend a mild bowel prep if possible. I suspect that her nausea and vomiting could also have been related to her urinary tract infection. 2. Urinary tract infection, Enterococcus faecalis. She has improved with antibiotics. She will be discharged to continue her course of 14 days total of Cipro. 3. Anemia, likely multifactorial and age related, stable. 4. Coronary artery disease. She is on Plavix, statin, beta juan and lisinopril. 5. Hypertension, controlled with Norvasc, Coreg and lisinopril. 6. Dyslipidemia. She is on Lipitor. 7. Vitamin D deficiency. She is on supplementation. 8. Deep venous thrombosis (DVT) prophylaxis. She is on heparin. DISPOSITION: She is being discharged home to the care of her family. She is at her functional baseline and her clinical syndrome has resolved. She is independent with her activities of daily living (ADLs). She is to followup with her primary care provider (PCP) in seven days and followup with Dr. Ozuna within two weeks. Her activity and diet are as prior to admission. She is to return to the emergency room (ER) if her symptoms worsen. MEDICATIONS AT DISCHARGE: - ciprofloxacin 500 mg twice a day for 11 days - Flagyl 500 mg three times a day for 11 days - probiotic one with each meal - Tylenol Arthritis 650 every eight hours as needed for pain - amlodipine 5 mg at bedtime - Lipitor 20 mg at bedtime - carvedilol 6.25 mg twice a day - vitamin D3 1000 units daily - Coenzyme Q 200 mg daily - vitamin B12 2000 mcg daily - lisinopril 20 mg twice a day - lutein as per the patient one capsule daily - multivitamin one tablet daily - Nitrostat every five minutes as needed for chest pain - Metamucil one packet daily - pyridoxine 100 mg daily - ranitidine 150 mg three times a week, Friday, Friday, Friday - spironolactone 12.5 mg daily The patient is to stop taking Plavix until followup with her primary care provider. Greater than 30 minutes were spent organizing disposition.
== END 2017-01-27 16:00 | disposition home or self-care (01) | DRG 392 ==
LOC: M ED 09:15 → EDBD 09:15 → M ED INP 13:54 → M PCU 17:49 → M MS4PR 01-25 16:45
PROVIDERS: ADMIT Internal Medicine; ATTEND Internal Medicine
DX: K52.9 Noninfective gastroenteritis and colitis, unspecified (principal); N39.0 Urinary tract infection, site not specified; I25.10 Atherosclerotic heart disease of native coronary artery without angina pectoris; E55.9 Vitamin D deficiency, unspecified; E78.5 Hyperlipidemia, unspecified; I11.9 Hypertensive heart disease without heart failure; D64.9 Anemia, unspecified; B96.29 Other Escherichia coli [E. coli] as the cause of diseases classified elsewhere; Z79.899 Other long term (current) drug therapy; Z88.5 Allergy status to narcotic agent; Z91.040 Latex allergy status

== ENCOUNTER 2017-02-03 09:53 | Emergency (ER) | payer MEDICARE ==
[~2017-02-03] VITALS: Ht 152.4 cm; Wt 54.5 kg
[~2017-02-03 09:53] MED LIST changes: +CIPR500T3 PO; +FLAG500T PO; +LISI-538 PO; +LUTECAP3 PO; +META48.54 PO; +RANI150T PO; +RISATAB3 PO
[2017-02-03] MEDS ORDERED: NS 1,000 ML IV SCH (11:38)
[2017-02-03] MEDS ORDERED: ONDANSETRON 4MG/2ML VIAL (J2405) IV ONE (11:45)
[2017-02-03] MEDS ORDERED: MORPHINE 4 MG/ML 1ML SYRINGE IV PRN (11:45)
[2017-02-03 12:46] LABS: BASO % 0.5 % (0.0-1.0); EOS % 0.4 % (0.0-3.0); IMMATURE GRANULOCYTE % 0.1 % (0-0); LYMPH # 3.1 10^3/uL (1.5-4.5); LYMPH % 39.5 % (24.0-44.0); MEAN CORPUSCULAR HEMOGLOBIN 28.1 pg (27.0-33.0); MEAN CORPUSCULAR HGB CONC 31.9 g/dl (32.0-36.5); MONO # 0.5 10^3/uL (0.0-0.8); MONO % 6.3 % (0.0-5.0); NEUTROPHILS # 4.2 10^3/uL (1.8-7.7); NEUTROPHILS % 53.2 % (36.0-66.0); PLATELET COUNT, AUTOMATED 369 10^3/uL (150-450); RED CELL DISTRIBUTION WIDTH 13.3 % (11.5-14.5); WHITE BLOOD COUNT 7.9 10^3/uL (4.0-10.0)
[2017-02-03 13:02] LABS: ALBUMIN/GLOBULIN RATIO 0.86 (1.00-1.93); ALKALINE PHOSPHATASE 53 U/L (45-117); ALT/SGPT 42 U/L (12-78); ANION GAP 11 MEQ/L (8-16); AST/SGOT 32 U/L (7-37); BILIRUBIN,DIRECT 0.1 MG/DL (0.0-0.2); BILIRUBIN,TOTAL 0.5 MG/DL (0.2-1.0); BLOOD UREA NITROGEN 16 MG/DL (7-18); CALCIUM LEVEL 8.7 MG/DL (8.8-10.2); CARBON DIOXIDE LEVEL 25 MEQ/L (21-32); CHLORIDE LEVEL 107 MEQ/L (98-107); CREATININE FOR GFR 0.77 MG/DL (0.55-1.02); GLOMERULAR FILTRATION RATE > 60.0 (>32); GLUCOSE, FASTING 117 MG/DL (83-110); POTASSIUM SERUM 3.9 MEQ/L (3.5-5.1); SODIUM LEVEL 143 MEQ/L (136-145); TOTAL PROTEIN 6.5 GM/DL (6.4-8.2)
[2017-02-03] MEDS ORDERED: GI COCKTAIL 50ML BTL(HYOSCYAMINE/MAALOX/LIDOCAINE VISCOUS)(1:3:1) PO ONE (13:30)
--- NOTE | 2017-02-03 13:40 | REP ---
Acute abdominal series including PA chest and supine and cross-table lateral abdomen: Comparison is the portable chest dated 01/24/2017. PA chest: The studies is performed with the patient supine with the AP projection. Lung rucker are clear. Cardiac size is normal. The brady, mediastinum, bony thorax are unremarkable. There is an Angelchik anti reflux prosthesis of the distal esophagus, similar to the prior study. Supine position precludes evaluation for free subdiaphragmatic air. Impression: Negative supine AP chest. Abdomen, supine and cross-table lateral views: The bowel gas pattern is nonspecific. Scattered air is noted in nondistended small and large bowel. On the cross-table lateral view there are occasional air-fluid levels. No free intraperitoneal air seen on the cross-table lateral view. There are multiple metallic surgical sutures along the midline of the abdomen most of which appear fractured. There is a surgical staple line in the pelvis on the left compatible with bowel surgery. Impression: Nonspecific bowel gas pattern. There are multiple air-fluid levels in nondistended bowel loops. There are postsurgical changes as described. There is an Angelchik gastroesophageal reflux prosthesis at the distal esophagus. Signed by Fabián Bernal MD 02/03/2017 01:31 P
[2017-02-03] MEDS ORDERED: PANTOPRAZOLE 40MG TAB (PROTONIX) PO ONE (16:15)
[2017-02-03] MEDS ORDERED: SPIRONOLACTONE 12.5MG PER 1/2 TABLET PEG ONE (16:15)
[2017-02-03] MEDS ORDERED: LISINOPRIL 20 MG TAB PO ONE (16:15)
[2017-02-03] MEDS ORDERED: CARVedilol 6.25 MG TAB PO ONE (16:15)
[2017-02-03 16:54] VITALS: BP 155/82
[2017-02-03] MEDS ORDERED: NEXI40CA PO (17:03)
[2017-02-03 17:04] VITALS: BP 163/70
--- NOTE | 2017-02-03 19:27 | ECGEPIP ---
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
--- NOTE | 2017-02-03 19:40 | ECGEPIP ---
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
== END 2017-02-03 17:35 | disposition home or self-care (01) ==
LOC: M ED 09:53
DX: K52.9 Noninfective gastroenteritis and colitis, unspecified (principal); D50.9 Iron deficiency anemia, unspecified; N18.3 Chronic kidney disease, stage 3 (moderate); R94.31 Abnormal electrocardiogram [ECG] [EKG]; I25.10 Atherosclerotic heart disease of native coronary artery without angina pectoris; I10 Essential (primary) hypertension; E78.5 Hyperlipidemia, unspecified; Z79.899 Other long term (current) drug therapy; Z88.5 Allergy status to narcotic agent; Z91.040 Latex allergy status
CPT/HCPCS: 74022; 80048; 80076; 82550; 82553; 83605; 83690; 84484; 85025; 93005; 93041; 96361; 96374; 96375; 99285; J2405

== ENCOUNTER → 2017-04-08 | Outpatient (REF) | payer MEDICARE ==
[2017-04-08 11:29] LABS: HEMATOCRIT 31.7 % (36.0-47.0); HEMOGLOBIN 9.8 g/dl (12.0-16.0); MEAN CORPUSCULAR HEMOGLOBIN 27.5 pg (27.0-33.0); MEAN CORPUSCULAR HGB CONC 30.9 g/dl (32.0-36.5); MEAN CORPUSCULAR VOLUME 88.8 fl (80.0-96.0); PLATELET COUNT, AUTOMATED 363 10^3/uL (150-450); RED BLOOD COUNT 3.57 10^6/uL (4.00-5.40); RED CELL DISTRIBUTION WIDTH 14.6 % (11.5-14.5); WHITE BLOOD COUNT 7.4 10^3/uL (4.0-10.0)
[2017-04-08 11:49] LABS: ALBUMIN 3.4 GM/DL (3.2-5.2); ALKALINE PHOSPHATASE 63 U/L (45-117); ALT/SGPT 14 U/L (12-78); ANION GAP 6 MEQ/L (8-16); AST/SGOT 15 U/L (7-37); BILIRUBIN,TOTAL 0.5 MG/DL (0.2-1.0); BLOOD UREA NITROGEN 17 MG/DL (7-18); CALCIUM LEVEL 8.7 MG/DL (8.8-10.2); CARBON DIOXIDE LEVEL 29 MEQ/L (21-32); CHLORIDE LEVEL 108 MEQ/L (98-107); CREATININE FOR GFR 0.81 MG/DL (0.55-1.30); GLOMERULAR FILTRATION RATE > 60.0 (>32); GLUCOSE, FASTING 96 MG/DL (70-100); MAGNESIUM LEVEL 2.2 MG/DL (1.8-2.4); POTASSIUM SERUM 4.2 MEQ/L (3.5-5.1); SODIUM LEVEL 143 MEQ/L (136-145); TOTAL PROTEIN 6.5 GM/DL (6.4-8.2)
== END ==
LOC: M SFHCLERA 09:02
DX: K21.9 Gastro-esophageal reflux disease without esophagitis (principal); I10 Essential (primary) hypertension
CPT/HCPCS: 83735

== ENCOUNTER → 2017-10-14 | Outpatient (REF) | payer MEDICARE ==
[2017-10-14 11:48] LABS: HEMATOCRIT 29.4 % (36.0-47.0); HEMOGLOBIN 8.9 g/dl (12.0-15.5); MEAN CORPUSCULAR HGB CONC 30.3 g/dl (32.0-36.5); MEAN CORPUSCULAR VOLUME 89.1 fl (80.0-96.0); PLATELET COUNT, AUTOMATED 379 10^3/uL (150-450); RED CELL DISTRIBUTION WIDTH 14.3 % (11.5-14.5); WHITE BLOOD COUNT 7.9 10^3/uL (4.0-10.0)
[2017-10-14 11:56] LABS: ALBUMIN 3.1 GM/DL (3.2-5.2); ALKALINE PHOSPHATASE 69 U/L (45-117); ALT/SGPT 16 U/L (12-78); ANION GAP 8 MEQ/L (8-16); AST/SGOT 14 U/L (7-37); BILIRUBIN,TOTAL 0.6 MG/DL (0.2-1.0); BLOOD UREA NITROGEN 15 MG/DL (7-18); CALCIUM LEVEL 8.6 MG/DL (8.8-10.2); CARBON DIOXIDE LEVEL 26 MEQ/L (21-32); CHLORIDE LEVEL 109 MEQ/L (98-107); CHOLESTEROL LEVEL 134 MG/DL (<200); CHOLESTEROL RISK RATIO 2.481 (<5); CREATININE FOR GFR 1.04 MG/DL (0.55-1.30); GLOMERULAR FILTRATION RATE 53.2 (>32); GLUCOSE, FASTING 93 MG/DL (70-100); HDL CHOLESTEROL 54 MG/DL (>40); LDL CHOLESTEROL 63.4 MG/DL (<100); MAGNESIUM LEVEL 2.3 MG/DL (1.8-2.4); NON-HDL-C 80 MG/DL; POTASSIUM SERUM 4.5 MEQ/L (3.5-5.1); SODIUM LEVEL 143 MEQ/L (136-145); TOTAL PROTEIN 6.2 GM/DL (6.4-8.2); TRIGLYCERIDES LEVEL 83 MG/DL (<150)
== END ==
LOC: M SFHCPLAZ 08:28
DX: D64.9 Anemia, unspecified (principal); I10 Essential (primary) hypertension; E78.00 Pure hypercholesterolemia, unspecified
CPT/HCPCS: 83735

== ENCOUNTER 2017-10-25 08:46 | Emergency (ER) | payer MEDICARE ==
[2017-10-25] MEDS: NS 500 ML IV (09:48)
[2017-10-25 10:00] LABS: BASO % 0.3 % (0.0-1.0); EOS # 0.1 10^3/uL (0.0-0.50); EOS % 1.3 % (0.0-3.0); HEMATOCRIT 26.1 % (36.0-47.0); HEMOGLOBIN 7.9 g/dl (12.0-15.5); IMMATURE GRANULOCYTE % 0.4 % (0-3.0); LYMPH # 1.7 10^3/uL (1.5-4.5); LYMPH % 16.7 % (24.0-44.0); MEAN CORPUSCULAR HEMOGLOBIN 26.5 pg (27.0-33.0); MEAN CORPUSCULAR HGB CONC 30.3 g/dl (32.0-36.5); MEAN CORPUSCULAR VOLUME 87.6 fl (80.0-96.0); MONO # 0.6 10^3/uL (0.0-0.8); MONO % 5.9 % (0.0-5.0); NEUTROPHILS # 7.5 10^3/uL (1.8-7.7); NEUTROPHILS % 75.4 % (36.0-66.0); PLATELET COUNT, AUTOMATED 290 10^3/uL (150-450); RED BLOOD COUNT 2.98 10^6/uL (4.00-5.40); RED CELL DISTRIBUTION WIDTH 14.5 % (11.5-14.5); WHITE BLOOD COUNT 9.9 10^3/uL (4.0-10.0)
[2017-10-25 10:19] LABS: ANION GAP 5 MEQ/L (8-16); BLOOD UREA NITROGEN 18 MG/DL (7-18); CALCIUM LEVEL 7.9 MG/DL (8.8-10.2); CARBON DIOXIDE LEVEL 28 MEQ/L (21-32); CHLORIDE LEVEL 110 MEQ/L (98-107); CPK CREATINE PHOSPHOKINASE 58 U/L (26-192); CREATININE FOR GFR 0.96 MG/DL (0.55-1.30); GLOMERULAR FILTRATION RATE 58.4 (>32); GLUCOSE, FASTING 118 MG/DL (70-100); POTASSIUM SERUM 4.8 MEQ/L (3.5-5.1); SODIUM LEVEL 143 MEQ/L (136-145); TROPONIN I < 0.02 NG/ML (< 0.10)
[2017-10-25 10:20] LABS: CK-MB VALUE MASS < 1.0 NG/ML (<3.6); MB/CK RELATIVE INDEX 1.72 (< OR =4)
[2017-10-25 10:30] LABS: KETONE, URINE AUTO RFX TRACE mg/dL (NEGATIVE); MUCUS, URINE RFX SMALL (NEGATIVE); RBC, URINE AUTO RFX 22 /HPF (0-3); SPECIFIC GRAVITY UR AUTO RFX 1.009 (1.002-1.035); SQUAM EPITHELIAL CELL UR AURFX 0 /HPF (0-6); WBC, URINE AUTO RFX 9 /HPF (0-3)
[2017-10-25 10:33] LABS: LEUKOCYTE ESTERASE UR AUTO RFX 1+ (NEGATIVE); NITRITE, URINE AUTO RFX POSITIVE (NEGATIVE)
== END 2017-10-25 14:30 | disposition home or self-care (01) ==
LOC: M ED 08:46
DX: R55 Syncope and collapse (principal); R10.9 Unspecified abdominal pain; D50.9 Iron deficiency anemia, unspecified; K21.9 Gastro-esophageal reflux disease without esophagitis; I10 Essential (primary) hypertension; E78.5 Hyperlipidemia, unspecified; I34.0 Nonrheumatic mitral (valve) insufficiency; Z87.440 Personal history of urinary (tract) infections; Z86.19 Personal history of other infectious and parasitic diseases; Z85.3 Personal history of malignant neoplasm of breast; Z79.899 Other long term (current) drug therapy; Z88.5 Allergy status to narcotic agent; Z91.040 Latex allergy status
CPT/HCPCS: 74021

== ENCOUNTER → 2018-01-19 | Outpatient (REF) | payer MEDICARE ==
[2018-01-19 12:07] LABS: HEMATOCRIT 27.7 % (36.0-47.0); HEMOGLOBIN 8.7 g/dl (12.0-15.5); MEAN CORPUSCULAR HEMOGLOBIN 25.6 pg (27.0-33.0); MEAN CORPUSCULAR HGB CONC 31.4 g/dl (32.0-36.5); MEAN CORPUSCULAR VOLUME 81.5 fl (80.0-96.0); PLATELET COUNT, AUTOMATED 523 10^3/uL (150-450); RED CELL DISTRIBUTION WIDTH 15.7 % (11.5-14.5); RETIC HEMOGLOBIN EQUIVALENT 24.5 pg (24-36); RETICULOCYTE # 73.1 10^9/L (17-77); RETICULOCYTE % 2.2 % (0.5-1.5); WHITE BLOOD COUNT 10.7 10^3/uL (4.0-10.0)
[2018-01-19 13:28] LABS: ALBUMIN 2.8 GM/DL (3.2-5.2); ALKALINE PHOSPHATASE 75 U/L (45-117); ALT/SGPT 16 U/L (12-78); ANION GAP 7 MEQ/L (8-16); AST/SGOT 17 U/L (7-37); BILIRUBIN,TOTAL 0.3 MG/DL (0.2-1.0); BLOOD UREA NITROGEN 20 MG/DL (7-18); CARBON DIOXIDE LEVEL 28 MEQ/L (21-32); CHLORIDE LEVEL 103 MEQ/L (98-107); CHOLESTEROL LEVEL 143 MG/DL (<200); FERRITIN 8 NG/ML (8-252); FOLATE 10.5 NG/ML; GLOMERULAR FILTRATION RATE > 60.0 (>32); GLUCOSE, FASTING 115 MG/DL (70-100); HDL CHOLESTEROL 52 MG/DL (>40); IRON (FE) 18 UG/DL (50-170); LDL CHOLESTEROL 65 MG/DL (<100); NON-HDL-C 91 MG/DL; POTASSIUM SERUM 4.4 MEQ/L (3.5-5.1); SODIUM LEVEL 138 MEQ/L (136-145); TOTAL IRON BINDING CAPACITY 300 UG/DL (250-450); TOTAL PROTEIN 5.9 GM/DL (6.4-8.2); TRIGLYCERIDES LEVEL 131 MG/DL (<150); VITAMIN B12 LEVEL 1388 PG/ML
== END ==
LOC: M SFHCPLAZ 10:09
DX: D64.9 Anemia, unspecified (principal); I10 Essential (primary) hypertension; E78.00 Pure hypercholesterolemia, unspecified
CPT/HCPCS: 82746

== ENCOUNTER 2018-02-04 10:24 | Outpatient (CLI) | payer MEDICARE ==
[~2018-02-04] VITALS: Ht 162.6 cm; Wt 49.1 kg
[~2018-02-04 10:24] MED LIST changes: -AMLO5TAB2 PO; +AMLO5TAB4 PO; +NEXI40CA PO; +SPIR-10 PO; -SPIR25TA2 PO
[2018-02-04 10:35] VITALS: BP 156/67
[2018-02-04] MEDS ORDERED: IRON SUCROSE 25 MG in NS 50 ML IV ONE (11:00)
[2018-02-04] MEDS ORDERED: IRON SUCROSE 275 MG in NS 250 ML IV ONE (11:30)
[2018-02-04 12:00] VITALS: BP 145/65
[2018-02-04 12:45] VITALS: BP 143/68
[2018-02-04 14:45] VITALS: BP 140/50
[2018-02-04 15:42] VITALS: BP 150/70
== END 2018-02-04 15:35 | disposition home or self-care (01) ==
LOC: M INFU 10:24
PROVIDERS: ATTEND Internal Medicine
DX: D50.8 Other iron deficiency anemias (principal)
CPT/HCPCS: 96365; 96366; J1756

== ENCOUNTER 2018-02-26 10:09 | Outpatient (CLI) | payer MEDICARE ==
[~2018-02-26] VITALS: Ht 162.6 cm; Wt 49.1 kg
[~2018-02-26 10:09] MED LIST changes: -AMLO5TAB4 PO; +AMLO5TAB6 PO; +IRON SUCROSE 300 MG in NS 250 ML OVER 90 MIN. IV ONE
[2018-02-26 10:45] VITALS: BP 135/51
[2018-02-26 11:00] VITALS: BP 150/50
[2018-02-26 12:00] VITALS: BP 148/56
[2018-02-26 13:00] VITALS: BP 152/60
[2018-02-26 14:33] VITALS: BP 144/66
[2018-02-26 14:50] VITALS: BP 156/58
== END 2018-02-26 14:50 | disposition home or self-care (01) ==
LOC: M INFU 10:09
PROVIDERS: ATTEND Internal Medicine
DX: D50.9 Iron deficiency anemia, unspecified (principal); Z79.899 Other long term (current) drug therapy; Z88.5 Allergy status to narcotic agent; Z91.040 Latex allergy status
CPT/HCPCS: 96365; 96366; J1756

== ENCOUNTER → 2018-03-17 | Outpatient (REF) | payer MEDICARE ==
[~2018-03-17] MED LIST changes: -IRON SUCROSE 300 MG in NS 250 ML OVER 90 MIN. IV ONE
[2018-03-17 17:00] LABS: HEMATOCRIT 27.2 % (36.0-47.0); HEMOGLOBIN 8.1 g/dl (12.0-15.5); MEAN CORPUSCULAR HEMOGLOBIN 24.7 pg (27.0-33.0); MEAN CORPUSCULAR HGB CONC 29.8 g/dl (32.0-36.5); MEAN CORPUSCULAR VOLUME 82.9 fl (80.0-96.0); PLATELET COUNT, AUTOMATED 460 10^3/uL (150-450); RED BLOOD COUNT 3.28 10^6/uL (4.00-5.40); WHITE BLOOD COUNT 10.8 10^3/uL (4.0-10.0)
[2018-03-17 17:11] LABS: PERCENT SATURATION 10.6 % (13.2-45.0)
== END ==
LOC: M SFHCLERA 14:29
PROVIDERS: ATTEND Internal Medicine
DX: D64.9 Anemia, unspecified (principal)

== ENCOUNTER → 2018-04-06 | Outpatient (REF) | payer MEDICARE ==
[2018-04-06 13:18] LABS: HEMOGLOBIN 8.7 g/dl (12.0-15.5); MEAN CORPUSCULAR HEMOGLOBIN 24.2 pg (27.0-33.0); MEAN CORPUSCULAR VOLUME 80.6 fl (80.0-96.0); PLATELET COUNT, AUTOMATED 491 10^3/uL (150-450)
[2018-04-06 13:25] LABS: PERCENT SATURATION 10.5 % (13.2-45.0)
== END ==
LOC: M SFHCPLAZ 11:28
PROVIDERS: ATTEND Internal Medicine
DX: D64.9 Anemia, unspecified (principal)

== ENCOUNTER 2018-04-18 09:07 | Inpatient (IN) | payer MEDICARE ==
[2018-04-18] VITALS (7 sets, daily range): BP systolic 117–147; BP diastolic 55–73
[~2018-04-18] VITALS: Ht 157.5 cm; Wt 54.0 kg
[2018-04-18] MEDS ORDERED: NS 1,000 ML IV SCH (09:23)
[2018-04-18] MEDS ORDERED: MORPHINE 2 MG/ML 1ML SYRINGE (J2270) IV ONE (09:30)
[2018-04-18] MEDS ORDERED: ONDANSETRON 4MG/2ML VIAL (J2405) IV ONE (09:30)
[2018-04-18 10:13] LABS: BASO % 0.2 % (0.0-1.0); EOS # 0.1 10^3/uL (0.0-0.50); EOS % 0.6 % (0.0-3.0); HEMATOCRIT 30.3 % (36.0-47.0); HEMOGLOBIN 9.2 g/dl (12.0-15.5); LYMPH % 16.5 % (24.0-44.0); MEAN CORPUSCULAR HEMOGLOBIN 24.4 pg (27.0-33.0); MEAN CORPUSCULAR HGB CONC 30.4 g/dl (32.0-36.5); MEAN CORPUSCULAR VOLUME 80.4 fl (80.0-96.0); MONO # 1.2 10^3/uL (0.0-0.8); MONO % 6.6 % (0.0-5.0); NEUTROPHILS # 13.7 10^3/uL (1.8-7.7); NEUTROPHILS % 75.6 % (36.0-66.0); PLATELET COUNT, AUTOMATED 456 10^3/uL (150-450); RED BLOOD COUNT 3.77 10^6/uL (4.00-5.40); WHITE BLOOD COUNT 18.1 10^3/uL (4.0-10.0)
[2018-04-18 10:17] LABS: BLOOD UREA NITROGEN 13 MG/DL (7-18); CALCIUM LEVEL 8.3 MG/DL (8.8-10.2); CARBON DIOXIDE LEVEL 26 MEQ/L (21-32); CHLORIDE LEVEL 105 MEQ/L (98-107); CPK CREATINE PHOSPHOKINASE 49 U/L (26-192); CREATININE FOR GFR 0.94 MG/DL (0.55-1.30); GLOMERULAR FILTRATION RATE 59.8 (>32); GLUCOSE, FASTING 101 MG/DL (70-100); MB/CK RELATIVE INDEX 2.65 (< OR =4); POTASSIUM SERUM 4.5 MEQ/L (3.5-5.1); SODIUM LEVEL 140 MEQ/L (136-145); TROPONIN I < 0.02 NG/ML (< 0.10)
[2018-04-18 10:29] LABS: INR 1.08; PROTHROMBIN TIME 14.1 SECONDS (12.1-14.4)
--- NOTE | 2018-04-18 10:29 | REP ---
AP pelvis single view: There is a nondisplaced intertrochanteric fracture of the right hip. There is no dislocation. No other fracture is identified. There is a surgical staple line in the pelvis. Right hip two views: There is a nondisplaced intertrochanteric fracture. There is no dislocation. There is demineralization. There are no calcifications or foreign bodies. Electronically Signed by Fabián Bernal MD 04/18/2018 10:21 A
[2018-04-18 10:30] LABS: PARTIAL THROMBOPLASTIN TIME 30.1 SECONDS (25.4-37.6)
[2018-04-18] MEDS ORDERED: CARV12.5 PO (10:52)
[2018-04-18] MEDS ORDERED: NEXI40CA PO (10:52)
[2018-04-18] MEDS ORDERED: ATOR1TAB21 PO (10:52)
[2018-04-18] MEDS ORDERED: SENN8.6T17 PO (10:52)
--- NOTE | 2018-04-18 10:54 | REP ---
Portable chest, 09:42 a.m., single AP view, the patient semi upright: Comparison is 10/25/2017. The patient is rotated. Lung rucker are clear. Cardiac size is upper normal for positioning. There appears to be an Angelchik anti gastroesophageal reflux prosthesis at the EG junction, unchanged. Impression: Essentially negative portable chest. Electronically Signed by Fabián Bernal MD 04/18/2018 10:45 A
[2018-04-18] MEDS ORDERED: FLON1SPR (11:00)
[2018-04-18] MEDS ORDERED: FERR325T3 PO (11:00)
[2018-04-18] MEDS ORDERED: VITA100072 PO (11:00)
[2018-04-18] MEDS ORDERED: ASPI81CH32 PO (11:00)
[2018-04-18] MEDS ORDERED: VITMTA PO (11:00)
[2018-04-18] MEDS ORDERED: VITA100066 PO (11:00)
[2018-04-18] MEDS ORDERED: MORPHINE 2 MG/ML 1ML SYRINGE (J2270) IV PRN (11:15)
[2018-04-18] MEDS ORDERED: FLUTICASONE PROP 0.05% NASAL SPRAY 16 GM (FLONASE) PRN (12:30)
[2018-04-18] MEDS ORDERED: ONDANSETRON 4MG/2ML VIAL (J2405) IV PRN ×3 (12:30→15:45)
[2018-04-18] MEDS: FERROUS SULFATE 325MG TAB PO SCH (12:55)
[2018-04-18] MEDS: MULTIVITAMINS/MINERALS THERAP 1 TAB PO SCH (12:55)
[2018-04-18] MEDS: CYANOCOBALAMIN 500 MCG TAB PO SCH (12:56)
[2018-04-18] MEDS: CARVedilol 12.5 MG TAB PO SCH ×2 (12:56→21:33)
--- NOTE | 2018-04-18 13:28 | HPE ---
DATE OF ADMISSION: 04/18/2018 CHIEF COMPLAINT: Right intertrochanteric hip fracture. HISTORY OF PRESENT ILLNESS: This 87-year-old female seen today at [facility] emergency department. I was called for a right hip fracture. Apparently the patient woke up early according to their daughter and had a trip and fall while at home. She was discovered down with a right hip fracture, unable to mobilize. They were brought to the emergency department. No prior history of hip pain or problems. She lives with her daughter, who is here today and answering questions for her as Alejandra herself is only mildly confused. No history loss of consciousness or head injury. PAST MEDICAL HISTORY: Includes abdominal pain, ischemic colitis, anemia, gastrointestinal (GI) bleed, gastritis, iron-deficiency anemia, chronic kidney disease stage III, abdominal cramping, vasovagal syncope, and now a right intratrochanteric hip fracture. Medications include: - atorvastatin - carvedilol - cyanocobalamin - Lovenox - ferrous sulfate - fluticasone - lisinopril - morphine - multivitamins - ondansetron - pantoprazole - Senna - sodium chloride - spironolactone - vitamin D ALLERGIES: To CODEINE and LATEX. SURGICAL HISTORY: Includes esophagogastroduodenoscopy (EGD), cataracts, colonoscopy, rotator cuff repair, fluoroscopy of abdominal aorta. SOCIAL HISTORY: She is here with her daughter today. She is a nonsmoker. Does no consume alcohol or use illicit drugs. She walks occasionally with a walker or a cane, but apparently is not using very much. She lives at home independently with her daughter, who is here today. PHYSICAL EXAMINATION: Vital signs: Blood pressure 157/69. Pulse rate 84. 87% on room air. Respiratory rate 16. She is alert and oriented, but a little bit confused and flustered when I ask her questions. She gets a little bit confused at the end of her sentences. Her daughter is responding for her. Overall, she is lying in bed. She appears well for her stated age. She is a thin individual. She does not complain about pain anywhere else. I did a secondary survey and could only pain in the right hip. Thigh compartments are soft on both sides. I marked the right hip. She had no pain to motion of the left side or pain with palpation of the pelvis. No pain at the right knee or distal to that. No ecchymosis, swelling or other deformity aside from short and external rotation on the right side. Her foot is warm and well-perfused on both sides. She has good pedal pulses. Normal sensation throughout both feet, and she is able to wiggle her toes and dorsiflex and plantar flex her feet. LABORATORY EXAM: Revealed hemoglobin 9.2. Coagulation PT 14.1, INR 1.08 and APTT 30.1. Chemistries are overall normal with troponins under 0.02. Radiographs were reviewed AP pelvis and AP lateral of the right hip. This shows a minimally displaced right intertrochanteric hip fracture. ASSESSMENT AND PLAN: We talked about the pros and cons, the risks and benefits of going ahead with open reduction, internal fixation of the right hip in the form of TSN-A. I spoke with her daughter and got her daughter's consent as she is next of kin/power of securities attorney as Alejandra is a little bit confused but did respond somewhat appropriately to some of my questions. We talked about the risk of surgery including but not limited to infection, neurovascular injury, stiffness, pain, bleeding, delayed mal or nonunion as well as anesthetic complications of the risks and . We also consented her for blood products if she needs them. We will keep her fasting. On bed rest. Hold her anticoagulation in case we can do the case today and the hospitalist apparently put in orders already and will clear the patient prior to surgery. KATHLEEN
[2018-04-18] MEDS ORDERED: TRANEXAMIC ACID 100 MG/ML 10ML VIAL As Ordered ONE (13:37)
--- NOTE | 2018-04-18 13:43 | IPNPDOC ---
Date Seen The patient was seen on 04/18/18. Progress Note Please see H&P for full details 87-year-old female with significant dementia fairly poor baseline functional status living with her daughter chronic anemia with shortness of breath with ambulation. Unreliable historian and disoriented at her baseline as per family or bedside. She follows with Dr. Carson has a history of some "leaky valves"and is ordered for when necessary sublingual nitroglycerin has a history of ischemic colitis and as such I'm certain has some degree of coronary artery disease. Given the aforementioned details I suspect she is fairly high risk for operative hip repair and at high risk for post procedural complications including but not limited to bleeding pneumonia DVT worsening dementia and even . I do not think that any further testing or interventions could potentially better optimize her however and as such no further testing required prior to operative intervention. I did a lengthy conversation with the patient's daughter who the patient lives with and did express to her that risky nature to the procedure and postoperative care but the alternative being essentially hospice care she wishes to proceed with operative intervention which I do not disagree with. VS, I&O, 24H, [place] Vital Signs/I&O Vital Signs Date Time Temp Pulse Resp B/P (MAP) Pulse Ox O2 Delivery O2 Flow Rate FiO2 04/18/18 12:56 162/72 04/18/18 12:45 83 16 90 Room Air 04/18/18 09:24 98.9 Laboratory Data 24H LABS Laboratory Tests 2 04/18/18 09:37: Anion Gap 9, Glomerular Filtration Rate 59.8, Blood Urea Nitrogen 13, Creatinine 0.94, Sodium Level 140, Potassium Level 4.5, Chloride Level 105, Carbon Dioxide Level 26, Calcium Level 8.3L, Total Creatine Kinase 49, Creatine Kinase MB 1.0, Creatine Kinase MB Relative Index 2.65, Troponin I < 0.02 04/18/18 10:05: Immature Granulocyte % (Auto) 0.5, White Blood Count 18.1H, Red Blood Count 3.77L, Hemoglobin 9.2L, Hematocrit 30.3L, Mean Corpuscular Volume 80.4, Mean Cor puscular Hemoglobin 24.4L, Mean Corpuscular Hemoglobin Concent 30.4L, Red Cell Distribution Width 16.9H, Platelet Count 456H, Neutrophils (%) (Auto) 75.6H, Lymphocytes (%) (Auto) 16.5L, Monocytes (%) (Auto) 6.6H, Eosinophils (%) (Auto) 0.6, Basophils (%) (Auto) 0.2, Neutrophils # (Auto) 13.7H, Lymphocytes # (Auto) 3.0, Monocytes # (Auto) 1.2H, Eosinophils # (Auto) 0.1, Basophils # (Auto) 0.0, Nucleated Red Blood Cells % (auto) 0.0, Prothrombin Time 14.1, Prothromb Time International Ratio 1.08, Activated Partial Thromboplast Time 30.1 CBC/BMP Laboratory Tests 04/18/18 09:37 Calcium Level 8.3 L, Total Creatine Kinase 49 04/18/18 10:05 Red Blood Count 3.77 L, Mean Corpuscular Volume 80.4, Mean Corpuscular Hemoglobin 24.4 L, Mean Corpuscular Hemoglobin Concent 30.4 L, Red Cell Distribution Width 16.9 H, Neutrophils (%) (Auto) 75.6 H, Lymphocytes (%) (Auto) 16.5 L, Monocytes (%) (Auto) 6.6 H, Eosinophils (%) (Auto) 0.6, Basophils (%) (Auto) 0.2, Neutrophils # (Auto) 13.7 H, Lymphocytes # (Auto) 3.0, Monocytes # (Auto) 1.2 H, Eosinophils # (Auto) 0.1, Basophils # (Auto) 0.0 KYUNG MCKNIGHT MD Apr 18, 2018 13:34
[2018-04-18] MEDS ORDERED: ceFAZolin 2 GM/D5W 50 ML IV BAG (J0690 PER 500MG) As Ordered ONE (14:07)
[2018-04-18] MEDS ORDERED: BUPIVACAINE/EPIN 0.5% 30 ML VIAL As Ordered ONE (14:17)
[2018-04-18] MEDS ORDERED: BUPIVACAINE/DEXTROSE 0.75% 2 ML AMP As Ordered ONE (14:33)
[2018-04-18] MEDS ORDERED: ePHEDrine SULFATE 25 MG/5 ML(5MG/ML) SYRINGE As Ordered ONE (14:33)
[2018-04-18] MEDS ORDERED: fentaNYL 100 MCG/2 ML INJECTION (J3010) As Ordered ONE ×2 (14:33→15:36)
[2018-04-18] MEDS ORDERED: MIDAZOLAM INJ 2 MG/2 ML VIAL (J2250) As Ordered ONE (14:33)
[2018-04-18] MEDS ORDERED: PROPOFOL 200 MG/20 ML VIAL As Ordered ONE (14:33)
[2018-04-18] MEDS ORDERED: PHENYLephrine HCL 500 MCG/5 ML (100MCG/ML) SYRINGE (J2370) As Ordered ONE (14:33)
[2018-04-18] MEDS ORDERED: LR 1,000 ML IV SCH (15:30)
[2018-04-18] MEDS ORDERED: PERCOCET 5MG/325MG TAB PO PRN (15:30)
[2018-04-18] MEDS ORDERED: METOCLOPRAMIDE INJ 10MG/2ML VIAL (J2765) IV PRN (15:30)
[2018-04-18] MEDS ORDERED: fentaNYL 100 MCG/2 ML INJECTION (J3010) IV PRN (15:30)
[2018-04-18] MEDS ORDERED: PERCOCET 5MG/325MG TAB As Ordered ONE (15:35)
[2018-04-18] MEDS ORDERED: ACETAMINOPHEN TAB 650MG DOSE (2X325MG) PO PRN (15:45)
[2018-04-18] MEDS ORDERED: ONDANSETRON 4 MG TAB (S0181) PO PRN (15:45)
[2018-04-18] MEDS ORDERED: MORPHINE SULFATE ORAL SOLN 10 MG/5 ML UD PO PRN (15:45)
[2018-04-18] MEDS ORDERED: DOCUSATE SODIUM 100 MG CAP PO PRN (15:45)
[2018-04-18] MEDS: LR 1,000 ML IV SCH ×2 (16:35→23:46)
[2018-04-18] MEDS: PERCOCET 5MG/325MG TAB PO PRN ×2 (16:41→21:43)
[2018-04-18] MEDS: SPIRONOLACTONE 12.5MG PER 1/2 TABLET PO SCH (16:42)
--- NOTE | 2018-04-18 16:51 | REP ---
Right hip intraoperative fluoroscopic views: A total of five views are performed during gamma nail fixation of the right hip. The gamma nail and fracture are in satisfactory positions alignment on all views. Fluoroscopic exposure time is 1 minute 15 seconds. Fluoroscopic images are performed last image hold technology and require no additional radiation. Electronically Signed by Fabián Bernal MD 04/18/2018 04:42 P
--- NOTE | 2018-04-18 17:41 | HPE ---
DATE OF ADMISSION: 04/18/2018 PRIMARY CARE PHYSICIAN: Dr. Laith Myers MEDICAID BILLING CLERK: Dr. Carson CHIEF COMPLAINT: Hip pain. HISTORY OF PRESENT ILLNESS: The patient is an 87-year-old female with known dementia with history of ischemic colitis, mitral regurgitation, and aortic insufficiency who lives with her daughter. Daughter tells me that the patient is disoriented at her baseline and only gets up between 6 and 7 every morning and makes her own bed; however, this morning at 7:15 she was not up, and the daughter went into her mother's room and found her on the floor several steps away from the bed. The patient was awake and is not oriented even at her baseline. Said that she fell out of the bed; however, the daughter states that the patient was farther away from the bed than a fall out of the bed would explain. The patient does not complain of any symptoms but is an unreliable historian. The patient's daughter states that the last evening the patient was in her usual state of health and did not complain of anything and had not been any more lethargic, tired, or any different. The patient's daughter believes that the patient got out of bed and was attempting to make her bed as she normally does in the morning and tripped and fell. Unfortunately, it was unwitnessed, and the daughter assumes that based on the time that patient awakes, she could not have been on the ground for more than 1 hour. Given that the patient did have some significant hip pain, she was brought to the emergency room and found to have a hip fracture. The patient herself complains of pain in her hip but otherwise does not provide any further details or information regarding the history. She does converse but fairly randomly. PAST MEDICAL HISTORY: 1. Gastroesophageal reflux disease. 2. Hypertension. 3. Dyslipidemia. 4. Breast cancer. 5. Ischemic colitis. 6. Mitral regurgitation. 7. Aortic insufficiency. 8. Dementia. 9. Diastolic congestive heart failure (extra beats). 10. Essential tremor. ALLERGIES: CODEINE and Latex. SOCIAL HISTORY: Lives with her daughter. No history of alcohol or tobacco abuse. FAMILY HISTORY: Noncontributory. REVIEW OF SYSTEMS: Negative other than in history of present illness (HPI). PAST SURGICAL HISTORY: 1. Appendectomy in 1948. 2. Right knee "cancer" in 1949. 3. Inguinal hernia repair in 1959. 4. Hysterectomy in 1961. 5. Cholecystectomy in 1969. 6. Hiatal hernia in 1970. 7. Vein ligation in 1972. 8. Left mastectomy, cancer in 1978. 9. Lumpectomy of the right index finger in 1996. 10. Colonoscopy in 1997. 11. Cataracts bilaterally. Extraction in 2005. 12. Lumpectomy of the right breast. Unable to recall the date. 13. Colonoscopy in 2003. 14. Vaginal wall repair and rectal repair in 2004. 15. Right shoulder surgery in 2011. 16. Colonoscopy and upper endoscopy in 2012. HOME MEDICATIONS: - sublingual nitroglycerine 0.4 mg as needed for chest pain - aspirin 81 mg daily - vitamin B6 at 100 mg daily - atorvastatin 20 mg at bedtime - carvedilol 12.5 mg twice a day - vitamin D 1000 units at bedtime - vitamin B12 at 1000 mcg daily - Nexium 40 mg at bedtime - ferrous sulfate 325 mg daily - Flonase 50 mcg nasally as needed - lisinopril 20 mg at bedtime - multivitamin one tablet daily - Senokot 8.6 mg two tablets every 2 days - spironolactone 12.5 mg by mouth daily OBJECTIVE: VITAL SIGNS: Temperature 98.9, pulse 82, respiratory rate 16, blood pressure (BP) 147/64, oxygen saturation 94% on room air. GENERAL: She is a frail, elderly female. She is tremulous. HEENT: Face is symmetric. She has moist mucous membranes. No elevation in central venous pressure (CVP). CARDIOVASCULAR: S1, S2, regular. RESPIRATORY: Fairly clear. ABDOMEN: Benign. EXTREMITIES: Decreased range of motion at the hip, but otherwise there was no clubbing, cyanosis, or edema. She does have an essential tremor. LABORATORY STUDIES: WBC 18.1, hemoglobin 9.2, platelet count 456. Chemistry panel: Sodium 140, potassium 4.5, chloride 105, bicarbonate 26, BUN 13, creatinine 0.9. Two sets of cardiac enzymes are negative. INR is 1.0. A urinalysis (UA) is fairly unremarkable. IMAGING: The patient did have a hip prescription that revealed nondisplaced intratrochanteric fracture. No dislocation. She also did have a chest x-ray that was essentially a negative portable study. She did have an EKG without impressive changes. ASSESSMENT AND PLAN: This is an 87-year-old female status post unwitnessed fall who presented with nondisplaced intertrochanteric fracture. 1. Fall. The etiology is unclear and may remain a mystery, as there were no witnesses, and the patient is unable to provide a history. She does not appear to be grossly septic. We will monitor on telemetry. Two sets of cardiac enzymes are negative. It does seem less likely that she had an arrhythmia or a cardiac event. She does not appear to have any focal neurological deficits. She has known history of leaky bowels. Her preoperative risk stratification is documented and noted elsewhere. We will monitor her on telemetry. Given her advanced dementia, we will not be aggressive in further workups or evaluation, as I have discussed with the patient's daughter. She is a very high-risk candidate for operative repair; however, no further testing is required. 2. Chronic iron deficiency anemia. Followed closely by primary care provider. They have elected to not pursue further colonoscopy given her advanced age, and she is on iron and IV iron occasionally in the outpatient setting. For the time being, we are going to continue her oral iron. 3. History of vascular disease. She is normally on an aspirin, which is on hold at this time. She is on beta juan and a statin as well as an angiotensin-converting enzyme (LIZETH) inhibitor. 4. Hypertension. She is on a beta juan and LIZETH inhibitor as well as spironolactone. 5. Vitamin D deficiency. She is on supplementation. 6. Chronic constipation. She is on a stool softener. 7. Deep vein thrombosis (DVT) prophylaxis. As per orthopedic surgery, as well as pain control, physical therapy (PT), and operative interventions. Their help is greatly appreciated.
[2018-04-18] MEDS: MORPHINE 4 MG/ML 1ML VIAL/SYRINGE (J2270) IV PRN ×2 (17:53→23:45)
[2018-04-18] MEDS: ATORVASTATIN 20 MG TAB PO SCH (21:33)
[2018-04-18] MEDS: SENNA 8.6 MG TAB (SENOKOT) PO SCH (21:33)
[2018-04-18] MEDS: LISINOPRIL 20 MG TAB PO SCH (21:33)
[2018-04-18] MEDS: VITAMIN D 1,000 INTERNATIONAL UNITS TABLET PO SCH (21:33)
[2018-04-18] MEDS: PANTOPRAZOLE 40MG TAB (PROTONIX) PO SCH (21:33)
[2018-04-19] VITALS (7 sets, daily range): BP systolic 114–160; BP diastolic 55–71
[2018-04-19] MEDS ORDERED: MORPHINE 4 MG/ML 1ML VIAL/SYRINGE (J2270) IV ONE ×2 (00:30→07:30)
[2018-04-19] MEDS ORDERED: fentaNYL 100 MCG/2 ML INJECTION (J3010) IV ONE (00:30)
[2018-04-19] MEDS: PERCOCET 5MG/325MG TAB PO PRN ×4 (04:59→21:00)
[2018-04-19] MEDS: MORPHINE 4 MG/ML 1ML VIAL/SYRINGE (J2270) IV PRN (06:19)
--- NOTE | 2018-04-19 06:25 | RO ---
DATE OF PROCEDURE: 04/18/2018 PREOPERATIVE DIAGNOSIS: Right hip intertrochanteric fracture. POSTOPERATIVE DIAGNOSIS: Right hip intertrochanteric fracture. PLANNED PROCEDURE: TFN-A right hip. PROCEDURE PERFORMED: TFN-A right hip. TYPE OF ANESTHESIA: Spinal. RIM FIRE CHARGER OPERATOR: Dr. Wheeler SURGEON: Dr. Lake OPERATIVE PREAMBLE: This 87-year-old female was seen today at [facility]. She was seen with her daughter. We talked about the pros and cons, risks and benefits preceding with the surgery in the form of open reduction, internal fixation/TFN-A intramedullary nail. Specific surgical risks include but were not limited to infection, neurovascular injury, stiffness, pain, bleeding, delayed mal or nonunion, need for further surgery, anesthetic complications, other risks, as well as . She wished to go forth, so we signed the consent with the aid of her daughter. OPERATIVE REPORT: The patient's right hip was marked preoperatively. They were brought to the operating theater. Spinal anesthesia was administered. They were placed in the traction setup with the right leg in a traction pierce and the left leg in the well leg pierce. No traction was applied but the leg was slightly internally rotated. The leg was prepped and draped in the usual sterile fashion with chlorhexidine was allowed to thoroughly dry for 3 minutes and drape. A preoperative time-out was performed and we confirmed the patient and the site of surgery, which was previously marked. 2 grams of IV Ancef and 2 grams of tranexamic acid have been administered prior to skin incision. I made a 1 inch incision centered three fingerbreadths proximal to level of the greater trochanter on the lateral hip. I carried this dissection down through skin and subcutaneous tissue down to level of the greater trochanter. I passed 3.2-mm partially threaded guidewire into the level of the greater trochanter on both the AP and lateral radiographs down to the level of lesser trochanter. I used the proximal femur entry reamer with the protective sleeve to open the canal. I next selected a 125 degree angled 200 mm long short TFN-A. I assembled this to the guide sleeve. We passed this down to the level of the femoral canal appropriately seated this. We used drop down guides 125 degrees. I used percutaneous stab incision to then pass the guide down to the level of the lateral left proximal femur. I then used another 3.2 mm guidewire to pass this into the proximal femoral neck and head center, center on both AP and lateral radiographs up to the level subchondral bone. This measured about 92 mm, so we selected an 85 mm helical blade. We reamed up to 85 mm, slightly passed this and then inserted the 85 mm helical blade. I impacted this overtop of the guidewire. The guidewires were removed. The nail was locked proximally. We then moved distally. Again using the drop down guide percutaneous technique, I inserted a 5.0 mm fully-threaded cortical distal interlock screw. This was 40 mm in length. Reduction appeared anatomic throughout the case. There was no displacement of the neck and no varus. The wounds were thoroughly irrigated with normal saline with Ancef solution. Subcutaneous tissue closed with Vicryl and then the skin with portillo. The skin was cleaned prior to application of dressing. We did put in an 20 mL of 0.5% Marcaine with the epinephrine and then dressed it with sterile bandage. The patient was transferred off the operating table and taken to postanesthesia care unit in stable condition. All sponge, needle, instrument counts were correct. Estimated blood loss was 50 mL. There were no complications associated with the procedure. Plan for the patient is to be weightbearing as tolerated. Admitted to hospital. See physical therapy and occupational therapy for safety for mobilization and discharge home. Venous thromboembolism (VTE) prophylaxis with a 10 mg of oral once daily Xarelto. Followup in 2 weeks to discontinue the portillo as well.
[2018-04-19 07:03] LABS: HEMATOCRIT 23.1 % (36.0-47.0); MEAN CORPUSCULAR HEMOGLOBIN 24.5 pg (27.0-33.0); MEAN CORPUSCULAR HGB CONC 30.3 g/dl (32.0-36.5); MEAN CORPUSCULAR VOLUME 80.8 fl (80.0-96.0); RED BLOOD COUNT 2.86 10^6/uL (4.00-5.40); WHITE BLOOD COUNT 12.3 10^3/uL (4.0-10.0)
[2018-04-19 07:16] LABS: PLATELET COUNT, AUTOMATED 346 10^3/uL (150-450)
[2018-04-19 07:29] LABS: ALBUMIN 2.2 GM/DL (3.2-5.2); ALT/SGPT 17 U/L (12-78); BILIRUBIN,TOTAL 0.3 MG/DL (0.2-1.0); BLOOD UREA NITROGEN 13 MG/DL (7-18); CARBON DIOXIDE LEVEL 23 MEQ/L (21-32); CHLORIDE LEVEL 105 MEQ/L (98-107); CREATININE FOR GFR 0.86 MG/DL (0.55-1.30); GLOMERULAR FILTRATION RATE > 60.0 (>32); GLUCOSE, FASTING 108 MG/DL (70-100); POTASSIUM SERUM 4.5 MEQ/L (3.5-5.1); SODIUM LEVEL 136 MEQ/L (136-145); TOTAL PROTEIN 5.2 GM/DL (6.4-8.2)
--- NOTE | 2018-04-19 08:47 | REPVR ---
EXAM: CT Head Without Contrast EXAM DATE/TIME: 04/19/2018 7:52 AM CLINICAL HISTORY: 87 years old, female; Injury or trauma; Fall; Initial encounter; Blunt trauma (contusions or hematomas); Consciousness not specified TECHNIQUE: Axial computed tomography images of the head/brain without contrast. All CT scans at this facility use at least one of these dose optimization techniques: automated exposure control; mA and/or kV adjustment per patient size (includes targeted exams where dose is matched to clinical indication); or iterative reconstruction. COMPARISON: CT Head without contrast 02/21/2016 8:58 AM FINDINGS: Brain: Low attenuating white matter changes suggestive of microvascular ischemia on a chronic basis. Cerebellar volume loss. Ventricles: Ventricular prominence likely on the basis of central volume loss. Bones/joints: Similar minor depression of the right lamina papyracea likely chronic. Sinuses: Visualized sinuses are unremarkable. No acute sinusitis. Mastoid air cells: Visualized mastoid air cells are unremarkable. No mastoid effusion. Orbits: Post surgical changes of the globes bilaterally. Soft tissues: Unremarkable. Vasculature: Intracranial vascular calcification. Other findings: Hemispheric volume loss. IMPRESSION: No acute intracranial abnormality. Electronically signed by: Maura Trinidad On 04/19/2018 08:46:46 AM
[2018-04-19] MEDS ORDERED: ENOXAPARIN 40 MG/0.4 ML SYRINGE (J1650) SC SCH (09:00)
--- NOTE | 2018-04-19 09:57 | IPNPDOC ---
Date Seen The patient was seen on 04/19/18. Progress Note SUBJECTIVE: Patient complains of pain but otherwise she doesn't answer my questions appropriately she is oriented to person but not place time or situation she does not appear to remember me from the previous day OBJECTIVE PHYSICAL EXAMINATION: VITAL SIGNS: Please see below. GENERAL: Very frail elderly female lying flat in bed she appears mildly uncomfortable but speaking in sentences HEENT: Normal sac H hematocrit nerves appear grossly intact she does not cooperate with testing CARDIOVASCULAR: S1-S2 regular. RESPIRATORY: Clear to auscultation bilaterally. ABDOMINAL: Bowel sounds present abdomen soft EXTREMITIES: Hip dressing is clean dry and intact no clubbing or cyanosis LABORATORY DATA, IMAGING STUDIES, MICROBIOLOGY: Please see below. DVT prophylaxis ordered?: Leslee ASSESSMENT AND PLAN: This is an 87-year-old female status post unwitnessed fall with nondisplaced intertrochanteric fracture postop day 1. 1. Fall. The etiology is unclear and may remain a mystery, as there were no witnesses, and the patient is unable to provide a history. Thus far workup has been fairly negative telemetry has been unremarkable the patient's daughter who was in the house at the time of fall feels so the patient may have discharged for attempting to make her bed. Based on her negative workup thus far I do suspect that it was mechanical also. I'll discontinue her telemetry. 2. Postop day one nondisplaced intertrochanteric fracture: Orthopedic surgeon up greatly appreciated pain control anticoagulation weightbearing as per orthopedic surgery. I have ordered for sepsis from a tree 2. Acute blood loss anemia on chronic iron deficiency anemia:. Followed closely by primary care provider. They have elected to not pursue further colonoscopy given her advanced age, and she is on iron and IV iron occasionally in the outpatient setting in addition to by mouth iron. I'm not surprised at all by her drop in hemoglobin given her recent operative surgery in her frailty I'll transfuse her 2 units of PRBCs and continue to monitor daily 3. History of vascular disease. She is normally on an aspirin, which is on hold at this time. She is on beta juan and a statin as well as an angiotensin-converting enzyme (LIZETH) inhibitor. 4. Hypertension. She is on a beta juan and LIZETH inhibitor as well as spironolactone. 5. Vitamin D deficiency. She is on supplementation. 6. Chronic constipation. She is on a stool softener. Disposition: Likely require rehabilitation placement her prognosis is guarded given her advanced dementia and somewhat limited prefall operative functional status VS, I&O, 24H, Fishbone Vital Signs/I&O Vital Signs Date Time Temp Pulse Resp B/P (MAP) Pulse Ox O2 Delivery O2 Flow Rate FiO2 04/19/18 07:39 20 04/19/18 06:29 2.0 04/19/18 05:00 98.1 73 114/55 (74) 93 04/18/18 13:30 Room Air I&O- Last 24 Hours up to 6 AM 04/19/18 06:00 Intake Total 2595 ml Output Total 1025 ml Balance 1570 ml Laboratory Data 24H LABS Laboratory Tests 2 04/18/18 10:05: Immature Granulocyte % (Auto) 0.5, White Blood Count 18.1H, Red Blood Count 3.77L, Hemoglobin 9.2L, Hematocrit 30.3L, Mean Corpuscular Volume 80.4, Mean Corpuscular Hemoglobin 24.4L, Mean Corpuscular Hemoglobin Concent 30.4L, Red Cell Distribution Width 16.9H, Platelet Count 456H, Neutrophils (%) (Auto) 75.6H, Lymphocytes (%) (Auto) 16.5L, Monocytes (%) (Auto) 6.6H, Eosinophils (%) (Auto) 0.6, Basophils (%) (Auto) 0.2, Neutrophils # (Auto) 13.7H, Lymphocytes # (Auto) 3.0, Monocytes # (Auto) 1.2H, Eosinophils # (Auto) 0.1, Basophils # (Auto) 0.0, Nucleated Red Blood Cells % (auto) 0.0, Prothrombin Time 14.1, Prothromb Time International Ratio 1.08, Activated Partial Thromboplast Time 30.1, Troponin I < 0.02 04/18/18 12:44: Urine Color YELLOW, Urine Appearance CLEAR, Urine pH 5.0, Urine Specific [place] 1.011, Urine Protein NEGATIVE, Urine Glucose (UA) NEGATIVE, Urine Ketones TRACEH, Urine Blood 1+H, Urine Nitrite NEGATIVE, Urine Bilirubin NEGATIVE, Urine Urobilinogen 0.2, Urine Leukocyte Esterase NEGATIVE, Urine WBC (Auto) 5H, Urine RBC (Auto) 24H, Urine Hyaline Casts (Auto) 0, Urine Bacteria (Auto) 2+H, Urine Squamous Epithelial Cells 0, Urine Mucus (Auto) SMALL, Urine Sperm (Auto) 04/19/18 06:49: Nucleated Red Blood Cells % (auto) 0.0, Anion Gap 8, Glomerular Filtration Rate > 60.0, Blood Urea Nitrogen 13, Creatinine 0.86, Sodium Level 136, Potassium Level 4.5, Chloride Level 105, Carbon Dioxide Level 23, Calcium Level 8.0L, Aspartate Amino Transf (AST/SGOT) 23, Alanine Aminotransferase (ALT/SGPT) 17, Alkaline Phosphatase 65, Total Bilirubin 0.3, Total Protein 5.2L, Albumin 2.2L, Albumin/Globulin Ratio 0.73L CBC/BMP Laboratory Tests 04/18/18 10:05 Red Blood Count 3.77 L, Mean Corpuscular Volume 80.4, Mean Corpuscular Hemoglobin 24.4 L, Mean Corpuscular Hemoglobin Concent 30.4 L, Red Cell Distribution Width 16.9 H, Neutrophils (%) (Auto) 75.6 H, Lymphocytes (%) (Auto) 16.5 L, Monocytes (%) (Auto) 6.6 H, Eosinophils (%) (Auto) 0.6, Basophils (%) (Auto) 0.2, Neutrophils # (Auto) 13.7 H, Lymphocytes # (Auto) 3.0, Monocytes # (Auto) 1.2 H, Eosinophils # (Auto) 0.1, Basophils # (Auto) 0.0 04/19/18 06:49 Red Blood Count 2.86 L, Mean Corpuscular Volume 80.8, Mean Corpuscular Hemoglob in 24.5 L, Mean Corpuscular Hemoglobin Concent 30.3 L, Red Cell Distribution Width 17.2 H, Calcium Level 8.0 L, Aspartate Amino Transf (AST/SGOT) 23, Alanine Aminotransferase (ALT/SGPT) 17, Alkaline Phosphatase 65, Total Bilirubin 0.3, Total Protein 5.2 L, Albumin 2.2 L KYUNG MCKNIGHT MD Apr 19, 2018 09:57
[2018-04-19] MEDS: SPIRONOLACTONE 12.5MG PER 1/2 TABLET PO SCH (10:17)
[2018-04-19] MEDS: FERROUS SULFATE 325MG TAB PO SCH (10:18)
[2018-04-19] MEDS: CYANOCOBALAMIN 500 MCG TAB PO SCH (10:18)
[2018-04-19] MEDS: CARVedilol 12.5 MG TAB PO SCH ×2 (10:18→20:59)
[2018-04-19] MEDS: MULTIVITAMINS/MINERALS THERAP 1 TAB PO SCH (10:18)
--- NOTE | 2018-04-19 10:31 | IPN ---
DATE: 04/19/2018 CHIEF COMPLAINT: Postoperative day #1 right hip short TFN-A for undisplaced intertrochanteric hip fracture. HISTORY OF PRESENT ILLNESS: This 87-year-old female was seen today on the [facility]avis in [facility]. She is doing well aside from apparently she had bit of a fall and bumped her head last night, so the nurses are actively giving her some pain medications and about to take her down for a CT head. She had a little bit of a rough night last night apparently needing some pain medications and having poor sleep unfortunately. Other than that not complaining about pain anywhere else. PHYSICAL EXAM: Vitals from this morning at 5 a.m. revealed blood pressure 114/55. Temperature 98.1. Pulse rate 73. 2 liters nasal prong saturating 93%. Respiratory rate 17. When I saw her this morning, she was alert and at her baseline since she has been admitted to the hospital that is to say a little bit confused and agitated. I did examine the dressing and appeared dry and still in situ. She is able to wiggle her toes, dorsiflex, and plantar flex her foot. Pleased to note she was able to wiggle her toes as well with prompting. She did have difficulty somewhat following commands. She was in some pain of her hip and ankle, which we propped up on a pillow. Laboratory examination reveals a hemoglobin of 7.0, which is down from 9.2 pre surgery. Chemistries were normal aside from slightly elevated fasting glucose. ASSESSMENT AND PLAN: The CT scan of her head to rule out intracranial bleed will be obtained. From what I understand this was ordered by the hospitalist and so they will followup on that as well as her low hemoglobin. They can decide whether she would benefit from a transfusion given that it is somewhat low being at 70 now. However, she did start at a baseline low level and there was definitely not a terrible amount of bleeding during surgery, very low amount, probably 30-50 mL total. So I imagine that will be stable. However, I will leave the need for transfusion in the hospitalist hands. She will be weightbearing as tolerated and venous thromboembolism (VTE) prophylaxis with Xarelto 10 mg by mouth once daily.
--- NOTE | 2018-04-19 17:39 | ECGEPIP ---
Stationary ECG Study [facility] - ED Test Date: 2018-04-18 Pat Name: LAKESHA KILLIAN Department: Room: - Gender: F Slps: FELIPE : 1930 Requested By: Jatin Ching Order Number: [id number] Reading MD: Laura Rapp Measurements Intervals [place] Rate: 78 P: 74 LA: 160 QRS: -43 QRSD: 88 T: 39 QT: 349 QTc: 398 Interpretive Statements SINUS RHYTHM BASELINE ARTIFACT LIMITS INTEPRETATION MARKED LEFT AXIS DEVIATION Electronically Signed On 04-19-2018 17:39:29 EST by Laura Rapp
[2018-04-19] MEDS: RIVAROXABAN 10 MG TAB (XARELTO) PO SCH (18:33)
[2018-04-19] MEDS: PANTOPRAZOLE 40MG TAB (PROTONIX) PO SCH (20:58)
[2018-04-19] MEDS: VITAMIN D 1,000 INTERNATIONAL UNITS TABLET PO SCH (20:58)
[2018-04-19] MEDS: ATORVASTATIN 20 MG TAB PO SCH (20:58)
[2018-04-19] MEDS: LISINOPRIL 20 MG TAB PO SCH (20:59)
[2018-04-20] VITALS (8 sets, daily range): BP systolic 112–176; BP diastolic 58–77
--- NOTE | 2018-04-20 07:45 | IPN ---
DATE OF SERVICE: 04/20/2018 CHIEF COMPLAINT: Postoperative day #2 right short TFNA for undisplaced intertrochanteric fracture of the hip. HISTORY OF PRESENT ILLNESS: This is an 87-year-old female seen today on [facility]. I have been largely communicating with her daughter as the patient does have some confusion or dementia at baseline. The patient has no voiced concerns and neither did the nursing staff. She was transfused for 2 units of packed red blood cells for low hemoglobin, yesterday it was 70. She had also had apparently a fall maybe out of bed and had a CT scan of her head that was negative for intracranial abnormalities. Physical exam this morning: Vital signs: Temperature 98.5. Blood pressure 125/59. Pulse rate 70. Respiratory rate 20, sating 95% on 2 liters nasal prongs. She is alert to person only. Is not alert to place or time. She has difficulty forming a sentence and communicating appropriately, but she does positively identify with her first and last name. She is comfortable lying supine in the bed. Examination of her lower extremities, the dressings were dry. Thigh compartments are soft. She does become a little bit agitated when I try to examine even her foot and check her pulses saying that it hurts everywhere. She appears to have normal sensation in the feet. Feet are warm and well perfused with good pedal pulses in terms of dorsalis pedis and tibialis posterior. Laboratory examination yesterday revealed hemoglobin of 7.0 and as such she was transfused 2 units. Still waiting on hemoglobin back from this morning. CT scan of the head from yesterday revealed no acute intracranial abnormalities. ASSESSMENT AND PLAN: This 87-year old female we will continue to try to mobilize weightbearing as tolerated. We will reorient her multiple times a day. Hopefully her daughter will be in at some point today as that really seems to be helpful for her in terms of her mental status. VTE prophylaxis with Xarelto 10 mg p.o. once daily. Followup on the repeat hemoglobin from this morning as well and I very much appreciate the hospitalist joannae in managing Alejandra.
[2018-04-20] MEDS ORDERED: traMADol 50 MG TAB PO PRN (08:30)
[2018-04-20] MEDS: SPIRONOLACTONE 12.5MG PER 1/2 TABLET PO SCH (09:03)
[2018-04-20] MEDS: MULTIVITAMINS/MINERALS THERAP 1 TAB PO SCH (09:03)
[2018-04-20] MEDS: FERROUS SULFATE 325MG TAB PO SCH (09:03)
[2018-04-20] MEDS: CARVedilol 12.5 MG TAB PO SCH ×2 (09:03→20:53)
[2018-04-20] MEDS: ACETAMINOPHEN 500 MG TAB PO SCH ×3 (09:04→20:52)
[2018-04-20] MEDS: CYANOCOBALAMIN 500 MCG TAB PO SCH (09:04)
[2018-04-20 10:37] LABS: HEMATOCRIT 30.6 % (36.0-47.0); MEAN CORPUSCULAR HEMOGLOBIN 25.8 pg (27.0-33.0); MEAN CORPUSCULAR VOLUME 80.5 fl (80.0-96.0); PLATELET COUNT, AUTOMATED 331 10^3/uL (150-450); WHITE BLOOD COUNT 12.1 10^3/uL (4.0-10.0)
[2018-04-20 10:40] LABS: HEMOGLOBIN 9.8 g/dl (12.0-15.5)
[2018-04-20 11:17] LABS: BLOOD UREA NITROGEN 13 MG/DL (7-18); CALCIUM LEVEL 7.7 MG/DL (8.8-10.2); CARBON DIOXIDE LEVEL 27 MEQ/L (21-32); CHLORIDE LEVEL 101 MEQ/L (98-107); CREATININE FOR GFR 0.69 MG/DL (0.55-1.30); GLOMERULAR FILTRATION RATE > 60.0 (>32); GLUCOSE, FASTING 119 MG/DL (70-100); POTASSIUM SERUM 4.4 MEQ/L (3.5-5.1); SODIUM LEVEL 133 MEQ/L (136-145)
--- NOTE | 2018-04-20 16:20 | IPNPDOC ---
Date Seen The patient was seen on 04/20/18. Progress Note SUBJECTIVE: Patient is tearful this a.m. but she cannot tell me why she denies pain I asked representing I can do for her she denies she denies any complaints whatsoever she is oriented to person but not place time or to situation OBJECTIVE PHYSICAL EXAMINATION: VITAL SIGNS: Please see below. GENERAL: Very frail elderly female lying flat in bed she does not appear to be in any acute distress today HEENT: Cranial nerves nerves appear grossly intact she does not cooperate with testing CARDIOVASCULAR: S1-S2 regular. RESPIRATORY: Clear to auscultation bilaterally. ABDOMINAL: Bowel sounds present abdomen soft EXTREMITIES: Hip dressing is clean dry and intact no clubbing or cyanosis LABORATORY DATA, IMAGING STUDIES, MICROBIOLOGY: Please see below. DVT prophylaxis ordered?: Leslee ASSESSMENT AND PLAN: This is an 87-year-old female status post unwitnessed fall with nondisplaced intertrochanteric fracture postop day 1. 1. Fall. The etiology is unclear and may remain a mystery, as there were no witnesses, and the patient is unable to provide a history. Thus far workup has been fairly negative telemetry was unremarkable the patient's daughter who was in the house at the time of fall feels so the patient may have fall while attempting to make her bed. Based on her negative workup thus far I do suspect that it was mechanical also. 2. Postop day 2 nondisplaced intertrochanteric fracture: Orthopedic surgeon up greatly appreciated, pain control anticoagulation weightbearing as per orthopedic surgery. I have encouraged incentive spirometry although the patient left great difficulty with compliance given her advanced dementia I have asked nursing to encourage this 2. Acute blood loss anemia on chronic iron deficiency anemia:. Followed closely by primary care provider. They have elected to not pursue further colonoscopy given her advanced age, and dementia she is on iron and IV iron occasionally in the outpatient setting in addition to by mouth iron. I'm not surprised at all by her drop in hemoglobin given her recent operative surgery and her frailty she had a positive response to 2 units of PRBCs will continue to follow closely 3. History of vascular disease. She is normally on an aspirin, which is on hold at this time. She is on beta juan and a statin as well as an angiotensin-converting enzyme (LIZETH) inhibitor. 4. Hypertension. She is on a beta juan and LIZETH inhibitor as well as spironolactone. 5. Vitamin D deficiency. She is on supplementation. 6. Chronic constipation. She is on a stool softener. Disposition: Likely require rehabilitation placement her prognosis is guarded given her advanced dementia and somewhat limited pre-operative functional status VS, I&O, 24H, Fishbone Vital Signs/I&O Vital Signs Date Time Temp Pulse Resp B/P (MAP) Pulse Ox O2 Delivery O2 Flow Rate FiO2 04/20/18 14:00 97.7 67 20 138/60 (86) 97 2.0 04/18/18 13:30 Room Air I&O- Last 24 Hours up to 6 AM 04/20/18 06:00 Intake Total 1050 ml Output Total 650 ml Balance 400 ml Laboratory Data 24H LABS Laboratory Tests 2 04/20/18 10:22: Nucleated Red Blood Cells % (auto) 0.0, Anion Gap 5L, Glomerular Filtration Rate > 60.0, Blood Urea Nitrogen 13, Creatinine 0.69, Sodium Level 133L, Potassium Level 4.4, Chloride Level 101, Carbon Dioxide Level 27, Calcium Level 7.7L CBC/BMP Laboratory Tests 04/20/18 10:22 Red Blood Count 3.80 L, Mean Corpuscular Volume 80.5, Mean Corpuscular Hemoglobin 25.8 L, Mean Corpuscular Hemoglobin Concent 32.0, Red Cell Distrib ution Width 16.2 H, Calcium Level 7.7 L KYUNG MCKNIGHT MD Apr 20, 2018 16:20
[2018-04-20] MEDS ORDERED: FUROSEMIDE 20 MG/2 ML VIAL (J1940) IV ONE (16:30)
[2018-04-20] MEDS: RIVAROXABAN 10 MG TAB (XARELTO) PO SCH (17:04)
[2018-04-20] MEDS ORDERED: ACETAMINOPHEN 500 MG TAB As Ordered ONE (20:45)
[2018-04-20] MEDS: ATORVASTATIN 20 MG TAB PO SCH (20:51)
[2018-04-20] MEDS: PANTOPRAZOLE 40MG TAB (PROTONIX) PO SCH (20:51)
[2018-04-20] MEDS: VITAMIN D 1,000 INTERNATIONAL UNITS TABLET PO SCH (20:51)
[2018-04-20] MEDS: SENNA 8.6 MG TAB (SENOKOT) PO SCH (20:52)
[2018-04-20] MEDS: LISINOPRIL 20 MG TAB PO SCH (20:53)
[2018-04-20] MEDS: traMADol 50 MG TAB PO PRN (20:53)
[2018-04-20] MEDS ORDERED: SENNA 8.6 MG TAB (SENOKOT) PO SCH (21:00)
[2018-04-21 06:00] VITALS: BP 176/82
[2018-04-21] MEDS: traMADol 50 MG TAB PO PRN (06:10)
[2018-04-21] MEDS: ACETAMINOPHEN 500 MG TAB PO SCH (06:10)
--- NOTE | 2018-04-21 07:38 | IPN ---
DATE: 04/21/2018 CHIEF COMPLAINT: Postoperative day #3 right TFN-8 for intertrochanteric hip fracture. HISTORY OF PRESENT ILLNESS: This 87-year-old female is seen today in the chavis on [address] for postoperative check. She is more alert today. She is responsive to her name. Less tearful. No concerns from the nurses or from myself. She had been transfused 2 units yesterday for a low hemoglobin. PHYSICAL EXAMINATION: Vital Signs: Temperature 98.6. Blood pressure 176/82. Pulse rate 73. Satting 98% on room air. Respiratory rate 18. She is alert and oriented to name only. She looks a lot brighter today. She is asking for her daughter. She did point out that her phone number is on the white board so she seems more coherent today and less tearful. She is lying in bed supine. The dressings are clean and dry on the right hip and thigh compartments are soft on both sides. She is able wiggle her toes, dorsiflex and plantar flex her feet on both sides. Feet are warm and well perfused with good pedal pulses. Normal sensation throughout the feet on both sides. LABORATORY EXAMINATION: Reveals hemoglobin up to 9.8 down from 7.0 after she received 2 units packed red blood cells. ASSESSMENT/PLAN: This is an 87-year-old female we are looking for placement in terms of transitioning off the postsurgical chavis. Continue venous thromboembolism (VTE) prophylaxis with Xarelto. Continue to monitor hemoglobin intermittently, although I think this will be stable at this point.
[2018-04-21] MEDS ORDERED: TRAM50TA2 PO (08:05)
[2018-04-21] MEDS ORDERED: ACET-683 PO (08:05)
[2018-04-21] MEDS ORDERED: XARE10TA PO (08:07)
[2018-04-21 08:41] VITALS: BP 176/82
[2018-04-21] MEDS: SPIRONOLACTONE 12.5MG PER 1/2 TABLET PO SCH (08:41)
[2018-04-21] MEDS: CARVedilol 12.5 MG TAB PO SCH (08:41)
[2018-04-21] MEDS: FERROUS SULFATE 325MG TAB PO SCH (08:42)
[2018-04-21] MEDS: CYANOCOBALAMIN 500 MCG TAB PO SCH (08:42)
[2018-04-21] MEDS: MULTIVITAMINS/MINERALS THERAP 1 TAB PO SCH (08:43)
[2018-04-21 09:50] LABS: HEMATOCRIT 32.7 % (36.0-47.0); HEMOGLOBIN 10.2 g/dl (12.0-15.5); MEAN CORPUSCULAR HEMOGLOBIN 25.2 pg (27.0-33.0); MEAN CORPUSCULAR HGB CONC 31.2 g/dl (32.0-36.5); MEAN CORPUSCULAR VOLUME 80.7 fl (80.0-96.0); PLATELET COUNT, AUTOMATED 400 10^3/uL (150-450); RED BLOOD COUNT 4.05 10^6/uL (4.00-5.40); WHITE BLOOD COUNT 11.4 10^3/uL (4.0-10.0)
[2018-04-21 10:15] LABS: BLOOD UREA NITROGEN 16 MG/DL (7-18); CALCIUM LEVEL 8.2 MG/DL (8.8-10.2); CARBON DIOXIDE LEVEL 27 MEQ/L (21-32); CHLORIDE LEVEL 98 MEQ/L (98-107); CREATININE FOR GFR 0.88 MG/DL (0.55-1.30); GLOMERULAR FILTRATION RATE > 60.0 (>32); GLUCOSE, FASTING 132 MG/DL (70-100); POTASSIUM SERUM 4.3 MEQ/L (3.5-5.1); SODIUM LEVEL 133 MEQ/L (136-145)
--- NOTE | 2018-04-21 17:43 | DSES ---
DATE OF ADMISSION: 04/18/2018 DATE OF DISCHARGE: 04/21/2018 DISCHARGE DIAGNOSIS: Nondisplaced intertrochanteric fracture. SECONDARY DIAGNOSES: Fall, acute blood loss anemia, acute on chronic iron deficiency anemia, hypertension, vitamin D deficiency, chronic constipation, Alzheimer's dementia. HOSPITAL COURSE: The patient is an 87-year-old female who had an unwitnessed fall at home in her room. Daughter was present in the house but did not hear anything, found the patient on the floor, she feels as though the patient was likely trying to make her bed. The patient was not unconscious. The patient has advanced dementia, is disoriented at her baseline, is unable to provide any history. She was found to have a nondisplaced intertrochanteric fracture. She was seen by Dr. Lake of orthopaedic surgery who did take the patient for surgery on 04/18/2018. She tolerated the procedure well. She did have some postoperative bleeding as expected. She did receive two units of packed red blood cells (PRBCs) with a positive response. Her mental status remained stable. At this time, she is medically stable for discharge to continue rehabilitation. SUBJECTIVE: The patient denies any specific complaints. She is oriented to person, but not to place, time, or situation. OBJECTIVE: VITAL SIGNS: Temperature 98.3, pulse 69, respiratory rate 18, blood pressure 133/64, oxygen saturation 90% on 1 liter. GENERAL: She is a very frail, elderly, female laying in bed. She does not appear to be in any acute distress. Cranial nerves appear grossly intact. She does not cooperate with testing. CARDIOVASCULAR EXAM: S1, S2, regular. RESPIRATORY EXAM: Actually fairly clear. ABDOMINAL EXAM: Benign. EXTREMITIES: Her dressing is clean, dry, and intact. LABORATORY STUDIES: WBC 11.4, hemoglobin 10.2, platelet count 400. Chemistry panel: Sodium 133, potassium 4.3, chloride 98, bicarbonate 27, BUN 16, creatinine 0.8. She had multiple sets of cardiac enzymes that are negative and telemetry was reviewed for 24 hours with no abnormalities. She did have a CT scan of her head that did not reveal any acute hemorrhage, infarct, or intracranial pathology as well as a chest x-ray that was essentially negative. ASSESSMENT AND PLAN: This is an 87-year-old female with a nondisplaced intertrochanteric fracture postoperative day #2. 1. Intertrochanteric fracture status post operative repair by Dr. Lake. Orthopaedic surgery's help is greatly appreciated. Deep venous thrombosis (DVT) prophylaxis and physical therapy as per them. 2. Acute blood loss anemia on top of chronic iron deficiency anemia. She is continued on her supplemental iron. She did receive two units of packed red blood cells (PRBCs) with a positive response. She has been on Xarelto for deep venous thrombosis (DVT) prophylaxis so would keep a fairly close eye on her leg for any further develop of hematoma or downtrending of her hemoglobin. 3. Hypertension. She is on an angiotensin converting enzyme (LIZETH) inhibitor as well as spironolactone and carvedilol. 4. Vitamin D deficiency. She is on supplementation. 5. Chronic constipation. She is on stool softener. 6. Gastroesophageal reflux disease. She is on Nexium. DISPOSITION: The patient is being discharged to rehabilitation. She is to followup with Dr. Lake around 05/02/2018. She is to followup with her primary care provider (PCP) within 7 days, walk with a walker weightbearing as tolerated as per orthopaedics. Her diet is as tolerated. She is to use Optifoam over her wound as per orthopedics. MEDICATIONS: At the time of discharge: - acetaminophen 1 gram every 8 hours as needed for pain - Xarelto 10 mg daily - tramadol 50 mg 1-2 tablets every 4 hours as needed for pain - atorvastatin 20 mg nightly - carvedilol 12.5 twice a day - vitamin D 1000 units every evening - vitamin B12 1000 mcg daily - Nexium 40 mg nightly - ferrous sulfate 325 mg daily - Flonase two sprays daily as needed for nasal congestion - lisinopril 20 mg nightly - multivitamin one tablet daily - Nitrostat 0.4 mg sublingually every 5 minutes as needed for chest pain - paroxetine 100 mg daily - Senokot 8.6 mg two tablets every 2 days nightly - spironolactone 12.5 mg daily Greater than 30 minutes spent organizing disposition.
== END 2018-04-21 13:55 | DRG 481 ==
LOC: M ED 09:07 → EDBD 09:07 → M ED INP 12:25 → M MSPAV 15:54 → M MS5PR 04-19 11:31
PROVIDERS: ADMIT Internal Medicine; ATTEND Internal Medicine
PROC: 0QS606Z Reposition Right Upper Femur with Intramedullary Internal Fixation Device, Open Approach (ICD-10-PCS; principal; 2018-04-18 13:07)
PROC: 30233N1 Transfusion of Nonautologous Red Blood Cells into Peripheral Vein, Percutaneous Approach (ICD-10-PCS; 2018-04-19)
DX: S72.144A Nondisplaced intertrochanteric fracture of right femur, initial encounter for closed fracture (principal); D62 Acute posthemorrhagic anemia; I50.32 Chronic diastolic (congestive) heart failure; I13.0 Hypertensive heart and chronic kidney disease with heart failure and stage 1 through stage 4 chronic kidney disease, or unspecified chronic kidney disease; K59.00 Constipation, unspecified; E55.9 Vitamin D deficiency, unspecified; G30.9 Alzheimer's disease, unspecified; F02.80 Dementia in other diseases classified elsewhere, unspecified severity, without behavioral disturbance, psychotic disturbance, mood disturbance, and anxiety; W18.30XA Fall on same level, unspecified, initial encounter; Y92.009 Unspecified place in unspecified non-institutional (private) residence as the place of occurrence of the external cause; K21.9 Gastro-esophageal reflux disease without esophagitis; Z79.899 Other long term (current) drug therapy; N18.3 Chronic kidney disease, stage 3 (moderate); Z88.5 Allergy status to narcotic agent; Z91.040 Latex allergy status; I08.0 Rheumatic disorders of both mitral and aortic valves; Z85.3 Personal history of malignant neoplasm of breast; E78.5 Hyperlipidemia, unspecified; Z79.82 Long term (current) use of aspirin

== ENCOUNTER → 2018-04-30 | Outpatient (REF) ==
[~2018-04-30] MED LIST changes: +ACET-683 PO; +ASPI81CH32 PO; +ATOR1TAB21 PO; +CARV12.5 PO; +FERR325T3 PO; +FLON1SPR; +SENN8.6T17 PO; +TRAM50TA2 PO; +VITA100066 PO; +VITA100072 PO; +XARE10TA PO
[2018-04-30 10:28] LABS: HEMATOCRIT 32.4 % (36.0-47.0); HEMOGLOBIN 9.9 g/dl (12.0-15.5); MEAN CORPUSCULAR HEMOGLOBIN 25.5 pg (27.0-33.0); MEAN CORPUSCULAR HGB CONC 30.6 g/dl (32.0-36.5); MEAN CORPUSCULAR VOLUME 83.5 fl (80.0-96.0); PLATELET COUNT, AUTOMATED 528 10^3/uL (150-450); RED BLOOD COUNT 3.88 10^6/uL (4.00-5.40); WHITE BLOOD COUNT 12.1 10^3/uL (4.0-10.0)
[2018-04-30 11:00] LABS: ALBUMIN 2.7 GM/DL (3.2-5.2); ALT/SGPT 22 U/L (12-78); BILIRUBIN,TOTAL 0.5 MG/DL (0.2-1.0); BLOOD UREA NITROGEN 27 MG/DL (7-18); CARBON DIOXIDE LEVEL 28 MEQ/L (21-32); CHLORIDE LEVEL 101 MEQ/L (98-107); CHOLESTEROL LEVEL 115 MG/DL (<200); CHOLESTEROL RISK RATIO 2.804 (<5); GLOMERULAR FILTRATION RATE 55.6 (>32); GLUCOSE, FASTING 107 MG/DL (70-100); HDL CHOLESTEROL 41 MG/DL (>40); LDL CHOLESTEROL 51 MG/DL (<100); NON-HDL-C 74 MG/DL; POTASSIUM SERUM 5.3 MEQ/L (3.5-5.1); SODIUM LEVEL 135 MEQ/L (136-145); TOTAL PROTEIN 5.8 GM/DL (6.4-8.2); TRIGLYCERIDES LEVEL 116 MG/DL (<150)
[2018-04-30 12:09] LABS: VITAMIN B12 LEVEL > 2000 PG/ML (247-911)
== END ==
LOC: SKLAB4 09:37
PROVIDERS: ATTEND Family Medicine
DX: D64.9 Anemia, unspecified (principal); E78.5 Hyperlipidemia, unspecified; E53.8 Deficiency of other specified B group vitamins

== ENCOUNTER → 2018-05-07 | Outpatient (REF) ==
[2018-05-07 11:46] LABS: HEMATOCRIT 28.7 % (36.0-47.0); HEMOGLOBIN 8.8 g/dl (12.0-15.5); MEAN CORPUSCULAR HEMOGLOBIN 26.2 pg (27.0-33.0); MEAN CORPUSCULAR HGB CONC 30.7 g/dl (32.0-36.5); MEAN CORPUSCULAR VOLUME 85.4 fl (80.0-96.0); PLATELET COUNT, AUTOMATED 512 10^3/uL (150-450); RED BLOOD COUNT 3.36 10^6/uL (4.00-5.40); WHITE BLOOD COUNT 11.8 10^3/uL (4.0-10.0)
== END ==
LOC: SKLAB4 12:24
PROVIDERS: ATTEND Family Medicine
DX: D64.9 Anemia, unspecified (principal)

== ENCOUNTER → 2018-05-14 | Outpatient (REF) ==
[2018-05-14 09:12] LABS: HEMATOCRIT 26.5 % (36.0-47.0); HEMOGLOBIN 8.2 g/dl (12.0-15.5); MEAN CORPUSCULAR HEMOGLOBIN 26.6 pg (27.0-33.0); MEAN CORPUSCULAR HGB CONC 30.9 g/dl (32.0-36.5); PLATELET COUNT, AUTOMATED 482 10^3/uL (150-450); RED BLOOD COUNT 3.08 10^6/uL (4.00-5.40); WHITE BLOOD COUNT 10.9 10^3/uL (4.0-10.0)
== END ==
LOC: SKLAB4 10:43
PROVIDERS: ATTEND Family Medicine
DX: D64.9 Anemia, unspecified (principal)

== ENCOUNTER → 2018-05-26 | Outpatient (REF) | payer MEDICARE | LOC: M SFHCLERA 09:28 | PROVIDERS: ATTEND Internal Medicine | DX: D64.9 Anemia, unspecified (principal); I10 Essential (primary) hypertension; Z53.9 Procedure and treatment not carried out, unspecified reason ==

== ENCOUNTER → 2018-05-27 | Outpatient (REF) | payer MEDICARE ==
[~2018-05-27] MED LIST changes: -/ESOM40CA PO; -ASPI81CH32 PO; +ASPI81CH33 PO; -B6 N1TAB PO; +FLUT1SPR2; -MIRA255PW PO; +NEXI1CAP3 PO; +POLY1POW4 PO; +VITA100018 PO; -VITA100072 PO; +VITA100T14 PO
[2018-05-27 13:01] LABS: ALBUMIN 2.5 GM/DL (3.2-5.2); ALT/SGPT 14 U/L (12-78); BILIRUBIN,TOTAL 0.3 MG/DL (0.2-1.0); BLOOD UREA NITROGEN 13 MG/DL (7-18); CALCIUM LEVEL 7.7 MG/DL (8.8-10.2); CARBON DIOXIDE LEVEL 22 MEQ/L (21-32); CHLORIDE LEVEL 109 MEQ/L (98-107); CREATININE FOR GFR 0.85 MG/DL (0.55-1.30); FERRITIN 133 NG/ML (8-252); GLOMERULAR FILTRATION RATE > 60.0 (>32); GLUCOSE, FASTING 100 MG/DL (70-100); IRON (FE) 24 UG/DL (50-170); MAGNESIUM LEVEL 1.7 MG/DL (1.8-2.4); PERCENT SATURATION 13.7 % (13.2-45.0); POTASSIUM SERUM 4.2 MEQ/L (3.5-5.1); SODIUM LEVEL 140 MEQ/L (136-145); TOTAL IRON BINDING CAPACITY 175 UG/DL (250-450); TOTAL PROTEIN 5.7 GM/DL (6.4-8.2)
[2018-05-27 13:59] LABS: BASO % 0.2 % (0.0-1.0); EOS # 0.2 10^3/uL (0.0-0.50); EOS % 1.5 % (0.0-3.0); HEMATOCRIT 26.4 % (36.0-47.0); LYMPH # 3.8 10^3/uL (1.5-4.5); LYMPH % 31.8 % (24.0-44.0); MEAN CORPUSCULAR HEMOGLOBIN 26.9 pg (27.0-33.0); MEAN CORPUSCULAR HGB CONC 30.3 g/dl (32.0-36.5); MEAN CORPUSCULAR VOLUME 88.9 fl (80.0-96.0); MONO # 0.8 10^3/uL (0.0-0.8); MONO % 6.4 % (0.0-5.0); NEUTROPHILS # 7.2 10^3/uL (1.8-7.7); NEUTROPHILS % 59.7 % (36.0-66.0); PLATELET COUNT, AUTOMATED 483 10^3/uL (150-450); RED BLOOD COUNT 2.97 10^6/uL (4.00-5.40); WHITE BLOOD COUNT 12.1 10^3/uL (4.0-10.0)
== END ==
LOC: M SFHCPLAZ 09:47
PROVIDERS: ATTEND Internal Medicine
DX: D64.9 Anemia, unspecified (principal)

== ENCOUNTER → 2018-06-25 | Outpatient (REF) | payer MEDICARE ==
[2018-06-25 12:40] LABS: BASO % 0.3 % (0.0-1.0); EOS # 0.2 10^3/uL (0.0-0.50); EOS % 1.5 % (0.0-3.0); HEMATOCRIT 27.8 % (36.0-47.0); HEMOGLOBIN 8.3 g/dl (12.0-15.5); LYMPH # 3.3 10^3/uL (1.5-4.5); LYMPH % 30.6 % (24.0-44.0); MEAN CORPUSCULAR HEMOGLOBIN 27.4 pg (27.0-33.0); MEAN CORPUSCULAR HGB CONC 29.9 g/dl (32.0-36.5); MEAN CORPUSCULAR VOLUME 91.7 fl (80.0-96.0); MONO # 0.6 10^3/uL (0.0-0.8); MONO % 5.9 % (0.0-5.0); NEUTROPHILS # 6.6 10^3/uL (1.8-7.7); NEUTROPHILS % 61.4 % (36.0-66.0); PLATELET COUNT, AUTOMATED 476 10^3/uL (150-450); RED BLOOD COUNT 3.03 10^6/uL (4.00-5.40); WHITE BLOOD COUNT 10.7 10^3/uL (4.0-10.0)
[2018-06-25 13:10] LABS: ALBUMIN 2.5 GM/DL (3.2-5.2); ALT/SGPT 11 U/L (12-78); BILIRUBIN,TOTAL 0.3 MG/DL (0.2-1.0); BLOOD UREA NITROGEN 12 MG/DL (7-18); CALCIUM LEVEL 7.7 MG/DL (8.8-10.2); CARBON DIOXIDE LEVEL 25 MEQ/L (21-32); CHLORIDE LEVEL 109 MEQ/L (98-107); CREATININE FOR GFR 0.97 MG/DL (0.55-1.30); FERRITIN 60 NG/ML (8-252); FOLATE 10.3 NG/ML; GLOMERULAR FILTRATION RATE 57.6 (>32); GLUCOSE, FASTING 159 MG/DL (70-100); IRON (FE) 21 UG/DL (50-170); MAGNESIUM LEVEL 1.9 MG/DL (1.8-2.4); PERCENT SATURATION 11.2 % (13.2-45.0); POTASSIUM SERUM 4.2 MEQ/L (3.5-5.1); SODIUM LEVEL 140 MEQ/L (136-145); TOTAL IRON BINDING CAPACITY 187 UG/DL (250-450); TOTAL PROTEIN 5.6 GM/DL (6.4-8.2); VITAMIN B12 LEVEL > 2000 PG/ML
== END ==
LOC: M SFHCPLAZ 10:18
PROVIDERS: ATTEND Internal Medicine
DX: D64.9 Anemia, unspecified (principal); I10 Essential (primary) hypertension; R68.89 Other general symptoms and signs

== ENCOUNTER 2018-08-21 08:16 | Observation (INO) | payer MEDICARE ==
[~2018-08-21] VITALS: Ht 157.5 cm; Wt 51.4 kg
[2018-08-21] MEDS ORDERED: ONDANSETRON 4MG/2ML VIAL (J2405) IV ONE (08:45)
[2018-08-21 08:59] LABS: BASO % 0.2 % (0.0-1.0); EOS # 0.1 10^3/uL (0.0-0.50); EOS % 0.6 % (0.0-3.0); HEMATOCRIT 24.4 % (36.0-47.0); HEMOGLOBIN 7.4 g/dl (12.0-15.5); LYMPH # 1.7 10^3/uL (1.5-4.5); LYMPH % 13.3 % (24.0-44.0); MEAN CORPUSCULAR HEMOGLOBIN 25.1 pg (27.0-33.0); MEAN CORPUSCULAR HGB CONC 30.3 g/dl (32.0-36.5); MEAN CORPUSCULAR VOLUME 82.7 fl (80.0-96.0); MONO # 0.7 10^3/uL (0.0-0.8); MONO % 5.4 % (0.0-5.0); PLATELET COUNT, AUTOMATED 426 10^3/uL (150-450); RED BLOOD COUNT 2.95 10^6/uL (4.00-5.40); WHITE BLOOD COUNT 12.5 10^3/uL (4.0-10.0)
[2018-08-21 09:24] LABS: ALBUMIN 2.3 GM/DL (3.2-5.2); ALT/SGPT 10 U/L (12-78); BILIRUBIN,DIRECT 0.2 MG/DL (0.0-0.2); BILIRUBIN,TOTAL 0.4 MG/DL (0.2-1.0); BLOOD UREA NITROGEN 12 MG/DL (7-18); CALCIUM LEVEL 8.1 MG/DL (8.8-10.2); CARBON DIOXIDE LEVEL 27 MEQ/L (21-32); CHLORIDE LEVEL 105 MEQ/L (98-107); CREATININE FOR GFR 0.84 MG/DL (0.55-1.30); GLOMERULAR FILTRATION RATE > 60.0 (>32); GLUCOSE, FASTING 121 MG/DL (70-100); LIPASE 72 U/L (73-393); POTASSIUM SERUM 4.1 MEQ/L (3.5-5.1); SODIUM LEVEL 138 MEQ/L (136-145); TOTAL PROTEIN 5.3 GM/DL (6.4-8.2)
[2018-08-21] MEDS ORDERED: PANTOPRAZOLE 40MG INJ (PROTONIX) (C9113) IV ONE (10:00)
[2018-08-21 11:06] LABS: CK-MB VALUE MASS < 1.0 NG/ML (<3.6); CPK CREATINE PHOSPHOKINASE 22 U/L (26-192); MB/CK RELATIVE INDEX 4.55 (< OR =4); TROPONIN I < 0.02 NG/ML (< 0.10)
[2018-08-21] MEDS: PANTOPRAZOLE SODIUM 40 MG in D5W 50 ML IV SCH ×3 (11:32→21:48)
[2018-08-21] MEDS ORDERED: META28.32 PO (12:10)
[2018-08-21] MEDS ORDERED: ECOT81TA5 PO (12:10)
[2018-08-21] MEDS ORDERED: ALEN70TA74 PO (12:10)
[2018-08-21] MEDS ORDERED: ACET-897 PO (12:10)
[2018-08-21] MEDS ORDERED: SENNA 8.6 MG TAB (SENOKOT) PO PRN (15:00)
[2018-08-21] MEDS ORDERED: FLUTICASONE PROP 0.05% NASAL SPRAY 16 GM (FLONASE) PRN (15:00)
[2018-08-21] MEDS ORDERED: ACETAMINOPHEN TAB 650MG DOSE (2X325MG) PO PRN (15:00)
[2018-08-21] MEDS ORDERED: METAMUCIL (PSYLLIUM) PACKET PO PRN (15:00)
--- NOTE | 2018-08-21 18:55 | REP ---
Clinical: Gagging. Evaluate for aspiration pneumonia. . Comparison: 10/25/2017, 04/18/2018 . Findings: The mediastinum and cardiac silhouette are stable and within normal limits for portable technique. The lung rucker demonstrate chronic interstitial changes without acute consolidation, effusion, or pneumothorax. Skeletal structures are intact. Impression: No acute cardiopulmonary process appreciated. Electronically Signed by Zachary Ch MD 08/21/2018 06:47 P
[2018-08-21 19:10] VITALS: BP 178/64
--- NOTE | 2018-08-21 19:48 | HPEPDOC ---
General Date of Admission Aug 21, 2018 at 15:19 Date of Service: Aug 21, 2018 Chief Complaint The patient is a 88-year-old female admitted with a reason for visit of Symptomatic Anemia. History of Present Illness 88f with hx of dementia, breast cancer, ckd, htn, chronic anemia who presents with gagging. Per daughter pt has not been eating much since yesterday. Today she began gagging frequently but not vomiting. She then became cool and clammy in her extremities and felt feverish in her face. She notes pt takes iron supplements and always has black stools. Home Medications Scheduled Alendronate Sodium (Alendronate Sodium) 70 Mg Tablet, 70 MG PO QWEEK, (Reported) SUNDAYS Aspirin (Ecotrin) 81 Mg Tablet.dr, 81 MG PO 3XW, (Reported) FRI, FRI, FRI Atorvastatin Calcium (Atorvastatin Calcium) 20 Mg Tab, 20 MG PO 3XW, (Reported) QHS Fri Carvedilol (Carvedilol) 12.5 Mg Tab, 12.5 MG PO BID, (Reported) Cholecalciferol (Vitamin D3) (Vitamin D3) 1,000 Unit Tab, 1,000 UNIT PO QPM, (Reported) Cyanocobalamin (Vitamin B-12) (Vitamin B-12) 1,000 Mcg Tab, 1,000 MCG PO DAILY, (Reported) Esomeprazole Magnesium (Nexium) 40 Mg Cap, 40 MG PO QHS, (Reported) Ferrous Sulfate (Ferrous Sulfate) 325 Mg Tab, 325 MG PO BID, (Reported) Lisinopril (Lisinopril) 20 Mg Tab, 20 MG PO QHS, (Reported) Multivitamins (Thera M Plus Tablet) 1 Tab Tab, 1 TAB PO DAILY, (Reported) Pyridoxine HCl (Vitamin B6) (Vitamin B-6) 100 Mg Tab, 100 MG PO DAILY, (Reported) Spironolactone (Spironolactone) 25 Mg Tab, 12.5 MG PO DAILY, (Reported) Scheduled PRN Acetaminophen (Tylenol Extra Strength) 500 Mg Tablet, 1,000 MG PO Q8H PRN for PAIN, (Reported) Fluticasone Propionate (Flonase Allergy Relief) 50 Mcg/Act Spr, 2 SPRAYS NA DAILY PRN for NASAL CONGESTION, (Reported) Nitroglycerin (Nitrostat) 0.4 Mg Subl, 0.4 MG SL NITRO PRN for CHEST PAIN, (Reported) Psyllium Husk (with Sugar) (Metamucil Powder) 575 Gm Powder, 1 PKT PO DAILY PRN for CONSTIPATION, (Reported) Sennosides (Senna Laxative) 8.6 Mg Tab, 2 TAB PO DAILY PRN for CONSTIPATION, (Reported) Allergies Coded Allergies: latex (Verified Allergy, Unknown, daughter states she does not know reaction, 08/21/18) codeine (Verified Adverse Reaction, Unknown, "makes her loopy", 08/21/18) A-FIB/CHADSVASC A-FIB History Current/History of A-Fib/PAF?: No Current PO Anticoag Therapy: No Age/Risk Factor Scoring CHADSVASC: CHADSVASC Response (Comments) Value Age Risk Factor Age >/= 75 years old 2 Gender Risk Factor Female 1 Hx of CHF No 0 Hx of HTN Yes 1 Hx of Stroke/TIA/or VTE No 0 Hx of Diabetes No 0 Hx of Vascular Disease No 0 Total 4 Treatment Treatment ordered: NONE Reason Anticoagulant not given: Current bleeding Review of Systems Other systems ROS unobtainable due to dementia Physical Examination General Exam: Positive: Alert, Cooperative, No Acute Distress Eye Exam: Positive: PERRLA, Conjunctiva & lids normal, EOMI; Negative: Sclera icteric ENT Exam: Positive: Atraumatic, Mucous membr. moist/pink, Pharynx Normal Neck Exam: Positive: Supple; Negative: JVD, thyromegaly Chest Exam: Positive: Clear to auscultation, Normal air movement Heart Exam: Positive: Rate Normal, Regular Rhythm, Normal S1, Normal S2; Negative: Murmurs, Rubs Telemetry: Positive: Sinus, PVCs Abdomen Exam: Positive: Normal bowel sounds, Soft; Negative: Tenderness, Hepatospenomegaly Extremity Exam: Positive: Edema Skin Exam: Positive: Nl turgor and temperature; Negative: Breakdown, Lesion Neuro Exam: Positive: Normal Gait, Normal Speech, Cranial Nerves 3-12 NL, Reflexes 2+ Psych Exam: Positive: Mood NL; Negative: Memory Intact, Oriented x 3 Vital Signs Vital Signs Date Time Temp Pulse Resp B/P (MAP) Pulse Ox O2 Delivery O2 Flow Rate FiO2 08/21/18 18:38 97.8 70 18 164/98 (120) 98 Room Air Laboratory Data Labs 24H Laboratory Tests 2 08/21/18 08:50: Immature Granulocyte % (Auto) 0.5, White Blood Count 12.5H, Red Blood Count 2.95L, Hemoglobin 7.4L, Hematocrit 24.4L, Mean Corpuscular Volume 82.7, Mean Corpuscular Hemoglobin 25.1L, Mean Corpuscular Hemoglobin Concent 30.3L, Red Cell Distribution Width 14.6H, Platelet Count 426, Neutrophils (%) (Auto) 80.0H, Lymphocytes (%) (Auto) 13.3L, Monocytes (%) (Auto) 5.4H, Eosinophils (%) (Auto) 0.6, Basophils (%) (Auto) 0.2, Neutrophils # (Auto) 10.0H, Lymphocytes # (Auto) 1.7, Monocytes # (Auto) 0.7, Eosinophils # (Auto) 0.1, Basophils # (Auto) 0.0, Nucleated Red Blood Cells % (auto) 0.0, Anion Gap 6L, Glomerular Filtration Rate > 60.0, Calcium Level 8.1L, Aspartate Amino Transf (AST/SGOT) 13, Alanine Aminotransferase (ALT/SGPT) 10L, Alkaline Phosphatase 66, Total Bilirubin 0.4, Direct Bilirubin 0.2, Total Protein 5.3L, Albumin 2.3L, Albumin/Globulin Ratio 0.77L, Lipase 72L 08/21/18 10:21: Total Creatine Kinase 22L, Creatine Kinase MB < 1.0, Creatine Kinase MB Relative Index 4.55H, Troponin I < 0.02 CBC/BMP Laboratory Tests 08/21/18 08:50 Red Blood Count 2.95 L, Mean Corpuscular Volume 82.7, Mean Corpuscular Hemoglobin 25.1 L, Mean Corpuscular Hemoglobin Concent 30.3 L, Red Cell Distribution Width 14.6 H, Neutrophils (%) (Auto) 80.0 H, Lymphocytes (%) (Auto) 13.3 L, Monocytes (%) (Auto) 5.4 H, Eosinophils (%) (Auto) 0.6, Basophils (%) (Auto) 0.2, Neutrophils # (Auto) 10.0 H, Lymphocytes # (Auto) 1.7, Monocytes # (Auto) 0.7, Eosinophils # (Auto) 0.1, Basophils # (Auto) 0.0 Assessment/Plan 88f with dementia p/w episode of gagging and clamminess anemia slightly lower than it had been in 3 months ago transfused prbcs in ed will trend h/h doubt gi bleed keep on obs to ensure proper response continue ppi and iron clamminess ?occult infection? check cxr check urine check procalcitonin htn continue lisinopril, coreg, aldatone Plan / VTE VTE Prophylaxis Ordered?: Yes VTE Exclusion Mechanical Proph: N/A:VTE Prophy Ordered VTE Exclusion Pharmacological: Bleeding Risk JOSE F PTOTER MD Aug 21, 2018 19:48
[2018-08-21 20:03] LABS: MEAN CORPUSCULAR HEMOGLOBIN 25.7 pg (27.0-33.0); MEAN CORPUSCULAR VOLUME 82.9 fl (80.0-96.0); PLATELET COUNT, AUTOMATED 411 10^3/uL (150-450); WHITE BLOOD COUNT 11.1 10^3/uL (4.0-10.0)
[2018-08-21] MEDS ORDERED: LISINOPRIL 20 MG TAB PO SCH (21:00)
[2018-08-21] MEDS ORDERED: ATORVASTATIN 20 MG TAB PO SCH (21:00)
[2018-08-21] MEDS ORDERED: VITAMIN D 1,000 INTERNATIONAL UNITS TABLET PO SCH (21:00)
[2018-08-21] MEDS: CARVedilol 12.5 MG TAB PO SCH (21:48)
[2018-08-21] MEDS: FERROUS SULFATE 325MG TAB PO SCH (21:48)
[2018-08-21 22:00] VITALS: BP 156/87
[2018-08-22] MEDS: PANTOPRAZOLE SODIUM 40 MG in D5W 50 ML IV SCH ×3 (00:57→08:26)
[2018-08-22 06:00] VITALS: BP 127/83
[2018-08-22 06:13] LABS: BASO % 0.2 % (0.0-1.0); EOS # 0.1 10^3/uL (0.0-0.50); EOS % 0.9 % (0.0-3.0); HEMATOCRIT 27.1 % (36.0-47.0); HEMOGLOBIN 8.5 g/dl (12.0-15.5); LYMPH # 2.3 10^3/uL (1.5-4.5); LYMPH % 19.8 % (24.0-44.0); MEAN CORPUSCULAR HEMOGLOBIN 24.9 pg (27.0-33.0); MEAN CORPUSCULAR HGB CONC 31.4 g/dl (32.0-36.5); MEAN CORPUSCULAR VOLUME 79.5 fl (80.0-96.0); MONO % 8.5 % (0.0-5.0); NEUTROPHILS # 8.2 10^3/uL (1.8-7.7); NEUTROPHILS % 70.3 % (36.0-66.0); PLATELET COUNT, AUTOMATED 435 10^3/uL (150-450); RED BLOOD COUNT 3.41 10^6/uL (4.00-5.40); WHITE BLOOD COUNT 11.7 10^3/uL (4.0-10.0)
[2018-08-22 06:31] LABS: BLOOD UREA NITROGEN 11 MG/DL (7-18); CARBON DIOXIDE LEVEL 26 MEQ/L (21-32); CHLORIDE LEVEL 104 MEQ/L (98-107); CREATININE FOR GFR 0.76 MG/DL (0.55-1.30); GLOMERULAR FILTRATION RATE > 60.0 (>32); GLUCOSE, FASTING 106 MG/DL (70-100); POTASSIUM SERUM 3.9 MEQ/L (3.5-5.1); SODIUM LEVEL 136 MEQ/L (136-145)
[2018-08-22] MEDS: FERROUS SULFATE 325MG TAB PO SCH (08:27)
[2018-08-22 08:28] VITALS: BP 151/46
[2018-08-22] MEDS: CARVedilol 12.5 MG TAB PO SCH (08:28)
[2018-08-22] MEDS ORDERED: CYANOCOBALAMIN 500 MCG TAB PO SCH (09:00)
[2018-08-22] MEDS ORDERED: SPIRONOLACTONE 12.5MG PER 1/2 TABLET PO SCH (09:00)
--- NOTE | 2018-08-22 09:35 | ECGEPIP ---
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
[2018-08-22 14:00] VITALS: BP 132/61
== END 2018-08-22 15:17 | disposition home or self-care (01) ==
LOC: EDBD 08:16 → M ED 08:16 → M ED INP 15:19 → M MSPAV 19:01
PROVIDERS: ADMIT Hospitalist; ATTEND Hospitalist
DX: D64.9 Anemia, unspecified (principal); N18.9 Chronic kidney disease, unspecified; I12.9 Hypertensive chronic kidney disease with stage 1 through stage 4 chronic kidney disease, or unspecified chronic kidney disease; Z79.82 Long term (current) use of aspirin; Z79.899 Other long term (current) drug therapy; Z91.040 Latex allergy status; Z85.3 Personal history of malignant neoplasm of breast
CPT/HCPCS: 36415; 36430; 71045; 80048; 80076; 81001; 82550; 82553; 83690; 84145; 84484; 85025; 85027; 86850; 86900; 86901; 86920; 87088; 87186; 93005; 93041; 94760; 96374; 96375; 96376; 99285; C9113; G0378; J2405; P9016

== ENCOUNTER → 2018-09-02 | Outpatient (REF) | payer MEDICARE ==
[~2018-09-02] MED LIST changes: +ACET-897 PO; +ALEN70TA74 PO; +ECOT81TA5 PO; +META28.32 PO
[2018-09-02 11:44] LABS: BASO % 0.2 % (0.0-1.0); EOS # 0.1 10^3/uL (0.0-0.50); EOS % 1.1 % (0.0-3.0); HEMATOCRIT 32.9 % (36.0-47.0); HEMOGLOBIN 9.8 g/dl (12.0-15.5); LYMPH % 23.6 % (24.0-44.0); MEAN CORPUSCULAR HEMOGLOBIN 25.1 pg (27.0-33.0); MEAN CORPUSCULAR HGB CONC 29.8 g/dl (32.0-36.5); MEAN CORPUSCULAR VOLUME 84.4 fl (80.0-96.0); MONO # 0.9 10^3/uL (0.0-0.8); MONO % 6.9 % (0.0-5.0); NEUTROPHILS # 8.6 10^3/uL (1.8-7.7); NEUTROPHILS % 67.9 % (36.0-66.0); PLATELET COUNT, AUTOMATED 482 10^3/uL (150-450); WHITE BLOOD COUNT 12.7 10^3/uL (4.0-10.0)
[2018-09-02 12:11] LABS: BLOOD UREA NITROGEN 12 MG/DL (7-18); CALCIUM LEVEL 8.1 MG/DL (8.8-10.2); CARBON DIOXIDE LEVEL 27 MEQ/L (21-32); CHLORIDE LEVEL 105 MEQ/L (98-107); CREATININE FOR GFR 0.83 MG/DL (0.55-1.30); FERRITIN 66 NG/ML (8-252); GLOMERULAR FILTRATION RATE > 60.0 (>32); GLUCOSE, FASTING 106 MG/DL (70-100); IRON (FE) 22 UG/DL (50-170); PERCENT SATURATION 8.3 % (13.2-45.0); POTASSIUM SERUM 4.5 MEQ/L (3.5-5.1); SODIUM LEVEL 138 MEQ/L (136-145); TOTAL IRON BINDING CAPACITY 264 UG/DL (250-450)
== END ==
LOC: M SFHCLERA 09:25
PROVIDERS: ATTEND Internal Medicine
DX: D64.9 Anemia, unspecified (principal)

== ENCOUNTER 2018-09-14 09:38 | Outpatient (CLI) | payer MEDICARE ==
[~2018-09-14] VITALS: Ht 157.5 cm; Wt 51.4 kg
[2018-09-14 09:51] VITALS: BP 130/55
[2018-09-14] MEDS ORDERED: IRON SUCROSE 75 MG in NS 100 ML IV ONE (10:00)
[2018-09-14] MEDS ORDERED: IRON SUCROSE 25 MG in NS 50 ML IV ONE (10:00)
[2018-09-14 10:35] VITALS: BP 127/60
[2018-09-14 11:30] VITALS: BP 132/58
[2018-09-14 12:41] VITALS: BP 128/61
== END 2018-09-14 12:45 | disposition home or self-care (01) ==
LOC: M INFU 09:38
PROVIDERS: ATTEND Internal Medicine
DX: D64.9 Anemia, unspecified (principal)
CPT/HCPCS: 96365; 96366; J1756

== ENCOUNTER 2018-09-21 12:47 | Outpatient (CLI) | payer MEDICARE ==
[~2018-09-21] VITALS: Ht 157.5 cm; Wt 51.4 kg
[2018-09-21 13:02] VITALS: BP 139/63
[2018-09-21] MEDS ORDERED: IRON SUCROSE 200 MG in NS 200 ML IV ONE (14:00)
[2018-09-21 14:01] VITALS: BP 145/60
[2018-09-21 15:00] VITALS: BP_SYST 138; BP_SYST 170; BP_DIAS 48; BP_DIAS 72
[2018-09-21 16:05] VITALS: BP 140/70
[2018-09-21 16:30] VITALS: BP 142/60
== END 2018-09-21 16:35 | disposition home or self-care (01) ==
LOC: M INFU 12:47
PROVIDERS: ATTEND Internal Medicine
DX: D50.9 Iron deficiency anemia, unspecified (principal); Z79.899 Other long term (current) drug therapy
CPT/HCPCS: 96365; 96366; J1756

== ENCOUNTER 2018-09-28 11:21 | Outpatient (CLI) | payer MEDICARE ==
[~2018-09-28] VITALS: Ht 157.5 cm; Wt 51.4 kg
[2018-09-28 11:30] VITALS: BP 117/55
[2018-09-28] MEDS ORDERED: IRON SUCROSE 200 MG in NS 200 ML IV ONE (12:00)
[2018-09-28] MEDS ORDERED: IRON SUCROSE 200 MG in NS 250 ML IV ONE (12:00)
[2018-09-28 12:30] VITALS: BP 139/56
[2018-09-28 13:30] VITALS: BP 149/60
[2018-09-28 14:30] VITALS: BP 144/56
[2018-09-28 14:50] VITALS: BP 154/64
== END 2018-09-28 14:50 | disposition home or self-care (01) ==
LOC: M INFU 11:21
PROVIDERS: ATTEND Internal Medicine
DX: D50.9 Iron deficiency anemia, unspecified (principal); Z79.899 Other long term (current) drug therapy
CPT/HCPCS: 96365; 96366; J1756

== ENCOUNTER → 2018-10-15 | Outpatient (REF) | payer MEDICARE ==
[~2018-10-15] MED LIST changes: +LOSA100T50 PO; +MONT10TA2 PO
[2018-10-15 17:07] LABS: BASO % 0.2 % (0.0-1.0); EOS # 0.1 10^3/uL (0.0-0.50); HEMATOCRIT 26.3 % (36.0-47.0); HEMOGLOBIN 7.8 g/dl (12.0-15.5); LYMPH # 2.3 10^3/uL (1.5-4.5); LYMPH % 23.1 % (24.0-44.0); MEAN CORPUSCULAR HEMOGLOBIN 25.5 pg (27.0-33.0); MEAN CORPUSCULAR HGB CONC 29.7 g/dl (32.0-36.5); MEAN CORPUSCULAR VOLUME 85.9 fl (80.0-96.0); MONO # 0.7 10^3/uL (0.0-0.8); MONO % 7.4 % (0.0-5.0); NEUTROPHILS # 6.6 10^3/uL (1.8-7.7); PLATELET COUNT, AUTOMATED 487 10^3/uL (150-450); RED BLOOD COUNT 3.06 10^6/uL (4.00-5.40); WHITE BLOOD COUNT 9.8 10^3/uL (4.0-10.0)
[2018-10-15 17:36] LABS: BLOOD UREA NITROGEN 12 MG/DL (7-18); CALCIUM LEVEL 8.2 MG/DL (8.8-10.2); CARBON DIOXIDE LEVEL 23 MEQ/L (21-32); CHLORIDE LEVEL 108 MEQ/L (98-107); CREATININE FOR GFR 0.89 MG/DL (0.55-1.30); FERRITIN 164 NG/ML (8-252); GLOMERULAR FILTRATION RATE > 60.0 (>32); GLUCOSE, FASTING 115 MG/DL (70-100); IRON (FE) 22 UG/DL (50-170); PERCENT SATURATION 13.6 % (13.2-45.0); POTASSIUM SERUM 4.3 MEQ/L (3.5-5.1); SODIUM LEVEL 140 MEQ/L (136-145); TOTAL IRON BINDING CAPACITY 162 UG/DL (250-450)
== END ==
LOC: M SFHCPLAZ 10:20
PROVIDERS: ATTEND Internal Medicine
DX: D64.9 Anemia, unspecified (principal)

== ENCOUNTER → 2018-10-26 | Outpatient (CLI) | payer MEDICARE ==
[~2018-10-26] MED LIST changes: -LOSA100T50 PO; -MONT10TA2 PO
== END ==
LOC: M LAB 09:46
PROVIDERS: ATTEND Internal Medicine
DX: D64.9 Anemia, unspecified (principal)

== ENCOUNTER 2018-10-27 09:40 | Outpatient (CLI) | payer MEDICARE ==
[~2018-10-27] VITALS: Ht 61 cm; Wt 51.4 kg
[2018-10-27] VITALS (10 sets, daily range): BP systolic 117–164; BP diastolic 56–74
== END 2018-10-27 15:30 | disposition home or self-care (01) ==
LOC: M INFU 09:40
PROVIDERS: ATTEND Internal Medicine
DX: D64.9 Anemia, unspecified (principal)
CPT/HCPCS: 36430; 86920; P9016

== ENCOUNTER 2018-11-07 16:42 | Emergency (ER) | payer MEDICARE ==
[~2018-11-07] VITALS: Ht 157.5 cm; Wt 47.7 kg
[2018-11-07] MEDS ORDERED: MONT10TA2 PO (17:00)
[2018-11-07] MEDS ORDERED: LOSA100T50 PO (17:00)
[2018-11-07 17:21] LABS: BASO % 0.3 % (0.0-1.0); EOS # 0.2 10^3/uL (0.0-0.5); EOS % 1.6 % (0.0-3.0); HEMATOCRIT 29.6 % (36.0-47.0); HEMOGLOBIN 9.3 g/dl (12.0-15.5); LYMPH # 2.8 10^3/uL (1.5-5.0); LYMPH % 22.4 % (24.0-44.0); MEAN CORPUSCULAR HEMOGLOBIN 27.7 pg (27.0-33.0); MEAN CORPUSCULAR HGB CONC 31.4 g/dl (32.0-36.5); MEAN CORPUSCULAR VOLUME 88.1 fl (80.0-96.0); MONO % 8.4 % (0.0-5.0); NEUTROPHILS # 8.3 10^3/uL (1.5-8.5); PLATELET COUNT, AUTOMATED 421 10^3/uL (150-450); RED BLOOD COUNT 3.36 10^6/uL (4.00-5.40); WHITE BLOOD COUNT 12.4 10^3/uL (4.0-10.0)
[2018-11-07 17:32] LABS: INR 1.13; PROTHROMBIN TIME 14.2 SECONDS (11.8-14.0)
[2018-11-07 17:33] LABS: PARTIAL THROMBOPLASTIN TIME 31.2 SECONDS (25.0-38.4)
[2018-11-07 18:00] LABS: ALBUMIN 2.2 GM/DL (3.2-5.2); ALT/SGPT 13 U/L (12-78); BILIRUBIN,DIRECT 0.2 MG/DL (0.0-0.2); BILIRUBIN,TOTAL 0.3 MG/DL (0.2-1.0); BLOOD UREA NITROGEN 12 MG/DL (7-18); CALCIUM LEVEL 7.8 MG/DL (8.8-10.2); CARBON DIOXIDE LEVEL 27 MEQ/L (21-32); CHLORIDE LEVEL 107 MEQ/L (98-107); CPK CREATINE PHOSPHOKINASE 25 U/L (26-192); CREATININE FOR GFR 0.76 MG/DL (0.55-1.30); FREE T4 1.07 NG/DL (0.76-1.46); GLOMERULAR FILTRATION RATE > 60.0 (>32); GLUCOSE, FASTING 112 MG/DL (70-100); LIPASE 95 U/L (73-393); SODIUM LEVEL 140 MEQ/L (136-145); TOTAL PROTEIN 5.1 GM/DL (6.4-8.2); TROPONIN I < 0.02 NG/ML (< 0.10)
[2018-11-07 21:14] VITALS: BP 175/73
[2018-11-07 21:29] VITALS: BP 175/73
[2018-11-07] MEDS ORDERED: CARVedilol 12.5 MG TAB PO ONE (21:30)
[2018-11-07 22:32] LABS: CK-MB VALUE MASS 1.1 NG/ML (<3.6); CPK CREATINE PHOSPHOKINASE 33 U/L (26-192); MB/CK RELATIVE INDEX 3.33 (< OR =4); TROPONIN I < 0.02 NG/ML (< 0.10)
--- NOTE | 2018-11-08 05:55 | ECGEPIP ---
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
--- NOTE | 2018-11-08 05:58 | ECGEPIP ---
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
--- NOTE | 2018-11-08 08:43 | REP ---
REASON: Chest pain. COMPARISON: Multiple, latest 08/21/2018. The technique utilized in obtaining the radiograph has magnified the cardiac silhouette and accentuated the interstitial markings. The cardiac silhouette is magnified by technique and stable from the prior exam. There is mild cardiomegaly. The lung rucker are clear and stable. No acute patchy parenchymal opacities or pleural effusions have developed. There is no change in the osseous structures. IMPRESSION: Cardiomegaly. No acute cardiopulmonary disease. Electronically Signed by aMx Fonseca DO 11/08/2018 09:17 A
== END 2018-11-07 23:20 | disposition home or self-care (01) ==
LOC: M ED 16:42
DX: R07.9 Chest pain, unspecified (principal); I11.0 Hypertensive heart disease with heart failure; E78.00 Pure hypercholesterolemia, unspecified; K57.30 Diverticulosis of large intestine without perforation or abscess without bleeding; K21.9 Gastro-esophageal reflux disease without esophagitis; R51 Headache; R39.15 Urgency of urination; Z85.3 Personal history of malignant neoplasm of breast; Z86.2 Personal history of diseases of the blood and blood-forming organs and certain disorders involving the immune mechanism; Z86.73 Personal history of transient ischemic attack (TIA), and cerebral infarction without residual deficits

== ENCOUNTER → 2018-11-18 | Outpatient (REF) | payer MEDICARE ==
[~2018-11-18] MED LIST changes: +LOSA100T50 PO; +MONT10TA2 PO
[2018-11-18 17:20] LABS: BASO # 0.1 10^3/uL (0.0-0.2); BASO % 0.4 % (0.0-1.0); EOS # 0.2 10^3/uL (0.0-0.5); EOS % 1.7 % (0.0-3.0); HEMATOCRIT 31.1 % (36.0-47.0); HEMOGLOBIN 9.6 g/dl (12.0-15.5); LYMPH # 2.9 10^3/uL (1.5-5.0); LYMPH % 20.5 % (24.0-44.0); MEAN CORPUSCULAR HEMOGLOBIN 27.4 pg (27.0-33.0); MEAN CORPUSCULAR HGB CONC 30.9 g/dl (32.0-36.5); MEAN CORPUSCULAR VOLUME 88.6 fl (80.0-96.0); MONO # 1.2 10^3/uL (0.0-0.8); MONO % 8.3 % (0.0-5.0); NEUTROPHILS # 9.8 10^3/uL (1.5-8.5); NEUTROPHILS % 68.8 % (36.0-66.0); PLATELET COUNT, AUTOMATED 561 10^3/uL (150-450); RED BLOOD COUNT 3.51 10^6/uL (4.00-5.40); WHITE BLOOD COUNT 14.3 10^3/uL (4.0-10.0)
== END ==
LOC: M SFHCPLAZ 13:43
PROVIDERS: ATTEND Internal Medicine
DX: D64.9 Anemia, unspecified (principal)
CPT/HCPCS: 36415; 85025; 86850; 86900; 86901; G0463

== ENCOUNTER → 2018-12-21 | Outpatient (REF) | payer MEDICARE ==
[2018-12-21 18:39] LABS: BLOOD UREA NITROGEN 16 MG/DL (7-18); CALCIUM LEVEL 8.1 MG/DL (8.8-10.2); CARBON DIOXIDE LEVEL 28 MEQ/L (21-32); CHLORIDE LEVEL 107 MEQ/L (98-107); CREATININE FOR GFR 0.82 MG/DL (0.55-1.30); GLOMERULAR FILTRATION RATE > 60.0 (>32); GLUCOSE, FASTING 89 MG/DL (70-100); POTASSIUM SERUM 4.6 MEQ/L (3.5-5.1); SODIUM LEVEL 140 MEQ/L (136-145)
[2018-12-21 19:01] LABS: HEMATOCRIT 28.6 % (36.0-47.0); HEMOGLOBIN 8.7 g/dl (12.0-15.5); MEAN CORPUSCULAR HEMOGLOBIN 27.1 pg (27.0-33.0); MEAN CORPUSCULAR HGB CONC 30.4 g/dl (32.0-36.5); MEAN CORPUSCULAR VOLUME 89.1 fl (80.0-96.0); PLATELET COUNT, AUTOMATED 604 10^3/uL (150-450); RED BLOOD COUNT 3.21 10^6/uL (4.00-5.40); WHITE BLOOD COUNT 12.4 10^3/uL (4.0-10.0)
== END ==
LOC: M SFHCPLAZ 15:31
PROVIDERS: ATTEND Internal Medicine
DX: D64.9 Anemia, unspecified (principal); I10 Essential (primary) hypertension; Z23 Encounter for immunization
CPT/HCPCS: 36415; 80048; 85027; 86850; 86900; 86901; 90682; G0008; G0463

== ENCOUNTER → 2019-01-19 | Outpatient (REF) | payer MEDICARE ==
[2019-01-19 17:10] LABS: HEMATOCRIT 28.5 % (36.0-47.0); HEMOGLOBIN 8.4 g/dl (12.0-15.5); MEAN CORPUSCULAR HEMOGLOBIN 25.8 pg (27.0-33.0); MEAN CORPUSCULAR HGB CONC 29.5 g/dl (32.0-36.5); MEAN CORPUSCULAR VOLUME 87.7 fl (80.0-96.0); PLATELET COUNT, AUTOMATED 583 10^3/uL (150-450); RED BLOOD COUNT 3.25 10^6/uL (4.00-5.40); WHITE BLOOD COUNT 14.5 10^3/uL (4.0-10.0)
== END ==
LOC: M SFHCLERA 10:43
PROVIDERS: ATTEND Internal Medicine
DX: D64.9 Anemia, unspecified (principal)

== ENCOUNTER → 2019-02-10 | Outpatient (REF) | payer MEDICARE ==
[2019-02-10 16:51] LABS: HEMATOCRIT 28.2 % (36.0-47.0); HEMOGLOBIN 8.5 g/dl (12.0-15.5); MEAN CORPUSCULAR HEMOGLOBIN 25.8 pg (27.0-33.0); MEAN CORPUSCULAR HGB CONC 30.1 g/dl (32.0-36.5); MEAN CORPUSCULAR VOLUME 85.7 fl (80.0-96.0); PLATELET COUNT, AUTOMATED 500 10^3/uL (150-450); RED BLOOD COUNT 3.29 10^6/uL (4.00-5.40); WHITE BLOOD COUNT 13.7 10^3/uL (4.0-10.0)
== END ==
LOC: M SFHCPLAZ 10:02
PROVIDERS: ATTEND Internal Medicine
DX: D64.9 Anemia, unspecified (principal)

== ENCOUNTER → 2019-03-18 | Outpatient (REF) | payer MEDICARE ==
[2019-03-18 17:04] LABS: HEMATOCRIT 28.9 % (36.0-47.0); HEMOGLOBIN 8.3 g/dl (12.0-15.5); MEAN CORPUSCULAR HEMOGLOBIN 25.6 pg (27.0-33.0); MEAN CORPUSCULAR HGB CONC 28.7 g/dl (32.0-36.5); MEAN CORPUSCULAR VOLUME 89.2 fl (80.0-96.0); PLATELET COUNT, AUTOMATED 465 10^3/uL (150-450); RED BLOOD COUNT 3.24 10^6/uL (4.00-5.40); WHITE BLOOD COUNT 11.1 10^3/uL (4.0-10.0)
== END ==
LOC: M SFHCPLAZ 10:34
PROVIDERS: ATTEND Internal Medicine
DX: D64.9 Anemia, unspecified (principal)